=== PATIENT | female | born 1935 | race Caucasian/White ===

== ENCOUNTER → 2018-03-30 06:58 | Outpatient (CLI) | payer MEDICARE, SELFPAY ==
[2018-03-30 08:16] LABS: Add Manual Diff / Slide Review NO; Basophils Percent Auto 0.6 % (0-2); Eosinophils Percent Auto 6.4 % (2-4); Hemoglobin 14.2 g/dL (12.0-16.0); Lymphocytes Percent Auto 21.3 % (25-40); Mean Corpuscular HGB Conc 33.9 % (30-36); Mean Corpuscular Hemoglobin 32.7 PG (26-34); Mean Corpuscular Volume 96.5 fL (80-100); Monocytes Percent Auto 6.6 % (3-14); Neutrophils Absolute Auto 5800 /uL (3000-5900); Neutrophils Percent Auto 65.1 % (50-75); Platelet Count 214 X10^3/uL (150-400); Red Blood Cell Count 4.35 X10^6/uL (4.0-5.2); Red Cell Distribution Width 14.5 % (11.6-14.8)
[2018-03-30 08:37] LABS: Alanine Aminotransferase 29 IU/L (9-52); Albumin 4.6 g/dL (3.5-5.0); Albumin Globulin Ratio 1.6 (1.0-2.8); Alkaline Phosphatase 76 U/L (38-126); Aspartate Aminotransferase 25 IU/L (14-36); BUN Creatinine Ratio 17.1 (6-22); Bilirubin Total 0.8 mg/dL (0.2-1.3); Blood Urea Nitrogen 12 mg/dL (7-17); Calcium 9.9 mg/dL (8.4-10.2); Carbon Dioxide 33 mmol/L (22-32); Chloride 99 mmol/L (98-107); Estimated Glomerular Filt Rate > 60.0 mL/min (>60); Globulin 2.8 g/dL (1.7-4.1); Glucose 101 mg/dL (80-110); HEMOLYSIS < 15 (0-50); Potassium 3.9 mmol/L (3.4-5.1); Sodium 142 mmol/L (137-145); Total Protein 7.4 g/dL (6.3-8.2)
[2018-03-31 15:12] LABS: Cancer Antigen 27.29 18 U/mL (< 38)
== END ==
PROVIDERS: Nurse Practitioner Gerontology; Visit Provider Internal Medicine Hematology & Oncology
DX: C50.912 Malignant neoplasm of unspecified site of left female breast (principal)
CPT/HCPCS: 36415; 80053; 85025; 86300

== ENCOUNTER 2018-04-06 15:41 | Oncology outpatient (ONC) | payer MEDICARE, SELFPAY ==
[2018-04-06 16:14] VITALS: BP 140/74; PULSE 120; RESP 21; TEMP 37.1; O2SAT 98
--- NOTE | 2018-04-06 16:20 | ONC.PN ---
PN -Subjective Interval history: Diagnosis: Breast cancer T1c N0 ERPR positive HER2 negative Previous treatment: 1. Lumpectomy and sentinel node biopsy in August 2016. 2. Anastrozole starting in the spring. Interval history: The patient is an 82-year-old woman who returns today for follow-up of a history of stage I breast cancer. Since her last visit here, she has been feeling quite well and has no specific complaints. She had been having some arthritis pain in her hips. She started doing some physical therapy which has been helpful. She denies any other new aches or pains. She is not having any hot flashes. She has not noted any adenopathy. No shortness of breath or cough. No GI complaints. Id She has been seeing her surgeon Dr. Mccann who has been performing a breast exam every 3 months. For past medical history is otherwise notable for atrial fibrillation hypertension and hyperlipidemia. She has had bilateral knee replacements. She has had a prior hysterectomy. She does use CPAP at night. - Patient Self-Reported Symptoms SR ears, nose, mouth, throat issues: Ears ringing SR Neuro issues: Numbness or tingling Home Medications and Allergies Home Medications Medication Instructions Recorded Confirmed Type [STRESS TAB ADVANCED] Q DAY #0 06/04/16 History atorvastatin [Lipitor] 20 mg PO QDAY #0 06/04/16 History diltiazem HCl 240 mg PO Q DAY #0 06/04/16 History levothyroxine [Synthroid] 150 mcg PO QAM #0 06/04/16 History losartan-hydrochlorothiazide 1 tab PO QDAY #0 06/04/16 History [Hyzaar] metoprolol tartrate 50 mg PO BID #0 06/04/16 History warfarin [Coumadin] 5 mg PO QDAY #0 06/04/16 History [SUSTAIN EYE DROP] #0 09/03/16 History acetaminophen [Tylenol Extra 1,000 mg PO QDAY #0 09/03/16 History Strength] [id number] 28 gm TP #0 09/03/16 History [Neosporin ([id number])] [CALCIUM/VIT D] BID #0 01/19/17 History anastrozole 1 mg PO QDAY #90 tab 09/09/17 Rx Allergies Allergy/AdvReac Type Severity Reaction Status Date / Time allopurinol Allergy Intermediate Fatigued Verified 04/06/18 16:17 Penicillins Allergy Mild RASH Verified 04/06/18 16:17 adhesive Allergy Unknown Verified 04/06/18 16:17 codeine AdvReac Unknown Verified 04/06/18 16:17 Exam Vital signs: Last Vital Signs Temp 98.8 F 04/06/18 16:14 Pulse 120 H 04/06/18 16:14 Resp 21 04/06/18 16:14 BP 140/74 04/06/18 16:14 Pulse Ox 98 04/06/18 16:14 - Constitutional positive no acute distress, positive average body habitus - Routine HEENT Exam Head: Present: normocephalic, atraumatic Eye: Present: EOMI, PERRL. Absent: conjunctival icterus, scleral injection ENT: Present: mucous membranes moist, oropharynx clear - Routine Neck Exam Present: supple. Absent: lymphadenopathy, thyromegaly - Routine Respiratory Exam Present: Clear to auscultation bilaterally. Absent: rales, wheezes - Routine Cardiovascular Exam Present: RRR, S1, S2. Absent: murmur - Routine Abdominal Exam Present: soft, normoactive bowel sounds. Absent: tenderness (The liver edge is palpable 2-3 finger breaths below the costal margin but not tender.) - Routine Extremities Exam Absent: cyanosis, clubbing, edema - Routine Back/Spine Exam Back/Spine: Absent: paraspinal tenderness, vertebral tenderness - Routine Skin Exam Present: intact. Absent: petechiae, rash - Routine Neurological Exam Present: alert, oriented X3 - Routine Psychiatric Exam Present: normal affect, normal thought process Results - Labs CBC, CMP and CA 27.29 were all normal. Assessment and Plan (1) Breast cancer, left Problem details: 82-year-old woman with a history of stage I breast cancer. She is doing well with the hormone therapy and tolerating it without any significant difficulty. She will continue with her anastrozole and return to clinic in about 6 months. She prefers to have her breast exam is done with her surgeon and will continue to follow up with her as well. I explained that typically I do not follow tumor markers an early stage breast cancer patients and would not continue the routine blood monitoring. If she develops any symptoms concerning for recurrence though additional imaging or testing would be indicated. Follow up with her in about 6 months. She will be due for a bone density scan in the summer or fall of 2018. Current visit: No Status: Acute
== END 2018-04-21 14:14 ==
LOC: ONC 15:44
PROVIDERS: Family Provider Internal Medicine; PCP Internal Medicine
DX: C50.912 Malignant neoplasm of unspecified site of left female breast (principal); Z79.811 Long term (current) use of aromatase inhibitors
CPT/HCPCS: 99214

== ENCOUNTER → 2018-05-14 07:39 | Outpatient (CLI) | payer MEDICARE, SELFPAY ==
--- NOTE | 2018-05-14 07:40 | DI.MG.S_ITS ---
BILATERAL DIGITAL SCREENING MAMMOGRAM 3D/2D WITH CAD POST LUMPECTOMY: 05/14/2018 CLINICAL: Routine screening. Personal history of left breast cancer. Family history of breast cancer. Comparison is made to exams dated: 11/09/2017 mammogram, 05/13/2017 mammogram, and 05/12/2016 mammogram - [facility]. The tissue of both breasts is heterogeneously dense. This may lower the sensitivity of mammography. Current study was also evaluated with a Computer Aided Detection (CAD) system. There are benign post operative findings in the left breast. There also are benign vascular calcifications and calcifications in the right breast. Additionally, there are benign vascular calcifications in the left breast. Additionally, there also are benign scattered calcifications in the left breast. No significant masses, calcifications, or other findings are seen in either breast. There has been no significant interval change. IMPRESSION: There is no mammographic evidence of malignancy. A 1 year screening mammogram is recommended. This exam was interpreted at Station ID: [id number]. NOTE: For mammograms, a report in lay terms will be sent to the patient. Approximately 15% of breast malignancies will not be visualized mammographically. In the management of a palpable breast mass, a negative mammogram must not discourage biopsy of a clinically suspicious lesion. Electronically Signed By: Nicholas friedman/hanny:05/14/2018 09:17:15 copy to: RICHARD BHATIA letter sent: Normal Exam ACR BI-RADS Category 2: Benign Finding(s) 3342F
== END ==
PROVIDERS: Family Provider Internal Medicine; PCP Internal Medicine; Visit Provider Internal Medicine
DX: Z12.31 Encounter for screening mammogram for malignant neoplasm of breast (principal); Z85.3 Personal history of malignant neoplasm of breast; Z80.3 Family history of malignant neoplasm of breast
CPT/HCPCS: 77063; 77067

== ENCOUNTER → 2019-05-16 14:47 | Outpatient (CLI) | payer MEDICARE, SELFPAY ==
--- NOTE | 2019-05-16 14:52 | DI.MG.S_ITS ---
BILATERAL DIGITAL SCREENING MAMMOGRAM 3D/2D WITH CAD: 05/16/2019 CLINICAL: Routine screening. Comparison is made to exams dated: 05/14/2018 mammogram, 11/09/2017 mammogram, and 05/13/2017 mammogram - [facility]. The tissue of both breasts is heterogeneously dense. This may lower the sensitivity of mammography. Current study was also evaluated with a Computer Aided Detection (CAD) system. There are benign calcifications in both breasts. There also are benign vascular calcifications in both breasts. Additionally, there are benign post operative findings in the left breast. No significant masses, calcifications, or other findings are seen in either breast. There has been no significant interval change. IMPRESSION: There is no mammographic evidence of malignancy. A 1 year screening mammogram is recommended. This exam was interpreted at Station ID: [id number]. NOTE: For mammograms, a report in lay terms will be sent to the patient. Approximately 15% of breast malignancies will not be visualized mammographically. In the management of a palpable breast mass, a negative mammogram must not discourage biopsy of a clinically suspicious lesion. Electronically Signed By: Francisco [email or web address]/hanny:05/18/2019 15:49:56 copy to: Miguel Angel Phelps letter sent: Normal Exam ACR BI-RADS Category 2: Benign Finding(s) 3342F
== END ==
PROVIDERS: PCP Internal Medicine
DX: Z12.31 Encounter for screening mammogram for malignant neoplasm of breast (principal); C50.912 Malignant neoplasm of unspecified site of left female breast; Z78.0 Asymptomatic menopausal state; E07.9 Disorder of thyroid, unspecified; Z90.722 Acquired absence of ovaries, bilateral
CPT/HCPCS: 77063; 77067; 77080

== ENCOUNTER → 2019-12-20 18:27 | Outpatient (ROUT) | payer MEDICARE, SELFPAY ==
[2019-12-20 19:04] LABS: Aspartate Aminotransferase 37 IU/L (14-36); BUN Creatinine Ratio 16.7 (6-22); Blood Urea Nitrogen 12 mg/dL (7-17); Calcium 10.4 mg/dL (8.4-10.2); Carbon Dioxide 25 mmol/L (22-32); Chloride 98 mmol/L (98-107); Cholesterol 157 mg/dL (140-199); Estimated Glomerular Filt Rate > 60.0 mL/min (>60); Glucose 102 mg/dL (80-110); HDL Cholesterol 65 mg/dL (40-60); HEMOLYSIS < 15 (0-50); LDL Cholesterol Calculated 58 mg/dL (<100); Potassium 3.9 mmol/L (3.4-5.1); Sodium 134 mmol/L (137-145); Triglycerides 168 mg/dL (35-150)
[2019-12-20 19:35] LABS: TSH w/ Reflex to FT4 0.04 uIU/mL (0.47-4.68)
[2019-12-20 20:00] LABS: Free T4, Direct Thyroxine 2.43 ng/dL (0.78-2.19)
== END ==
PROVIDERS: PCP Internal Medicine; Visit Provider Internal Medicine
DX: I10 Essential (primary) hypertension (principal); E78.2 Mixed hyperlipidemia; E03.9 Hypothyroidism, unspecified
CPT/HCPCS: 80048; 80061; 84439; 84443; 84450

== ENCOUNTER → 2019-12-28 07:45 | Outpatient (CLI) | payer MEDICARE, SELFPAY ==
[2019-12-28 09:12] LABS: Add Manual Diff / Slide Review NO; Basophils Absolute Auto 0 /uL (0-100); Basophils Percent Auto 0.6 % (0-2); Eosinophils Absolute Auto 200 /uL (0-450); Eosinophils Percent Auto 2.5 % (2-4); Hematocrit 40.4 % (36-46); Hemoglobin 13.6 g/dL (12.0-16.0); Lymphocytes Absolute Auto 1500 /uL (1100-4500); Lymphocytes Percent Auto 18.2 % (25-40); Mean Corpuscular HGB Conc 33.5 % (30-36); Mean Corpuscular Hemoglobin 34.1 PG (26-34); Mean Corpuscular Volume 101.7 fL (80-100); Monocytes Absolute Auto 700 /uL (0-900); Monocytes Percent Auto 8.2 % (3-14); Neutrophils Absolute Auto 5800 /uL (1500-7000); Neutrophils Percent Auto 70.5 % (50-75); Platelet Count 219 X10^3/uL (150-400); Red Blood Cell Count 3.97 X10^6/uL (4.0-5.2); Red Cell Distribution Width 15.4 % (11.6-14.8); White Blood Cell Count 8.2 X10^3/uL (4.5-11.0)
[2019-12-28 09:53] LABS: Alanine Aminotransferase 25 IU/L (<35); Albumin Globulin Ratio 1.4 (1.0-2.8); Alkaline Phosphatase 81 U/L (38-126); Aspartate Aminotransferase 35 IU/L (14-36); BUN Creatinine Ratio 11.8 (6-22); Bilirubin Total 0.7 mg/dL (0.2-1.3); Blood Urea Nitrogen 10 mg/dL (7-17); Calcium 9.8 mg/dL (8.4-10.2); Carbon Dioxide 27 mmol/L (22-32); Chloride 98 mmol/L (98-107); Estimated Glomerular Filt Rate > 60.0 mL/min (>60); Globulin 2.9 g/dL (1.7-4.1); Glucose 114 mg/dL (80-110); HEMOLYSIS < 15 (0-50); Sodium 134 mmol/L (137-145); Total Protein 6.9 g/dL (6.3-8.2)
[2020-01-03 09:36] LABS: Immunoglobulin E 140 IU/mL (6-495)
[2020-01-10 07:09] LABS: Bullous Pemphigoid 180 IgG AB 1.3 U/ml (.); Bullous Pemphigoid 230 IgG AB 95.2 U/ml (.)
== END ==
PROVIDERS: PCP Internal Medicine; Referring Provider Dermatology; Visit Provider Dermatology
DX: L30.9 Dermatitis, unspecified (principal)
CPT/HCPCS: 36415; 80053; 82785; 83516; 85025

== ENCOUNTER → 2020-01-09 09:33 | Outpatient (CLI) | payer MEDICARE, SELFPAY ==
--- NOTE | 2020-01-09 09:41 | DI.CT.S_ITS ---
PROCEDURE: CT ABDOMEN WO/W CON INDICATIONS: Renal Mass right TECHNIQUE: Optional 5 mm thick noncontrast images acquired from the diaphragm to the iliac crests. After the administration of intravenous contrast, 5 mm thick images again acquired from the diaphragm to the iliac crests in the arterial and urographic phases. 5 mm thick coronal and sagittal reformats were then acquired. For radiation dose reduction, the following was used: automated exposure control, adjustment of mA and/or kV according to patient size. COMPARISON: [facility], , CT THORAX W/CONTRAST, 09/29/2004, 9:24. FINDINGS: Image quality: Excellent. Lung bases: Lung bases are clear. Heart size is normal. Genitourinary: The bilateral kidneys are normal size. No hydronephrosis or nephrolithiasis. A low density cortical cyst is present within the lower pole of the right kidney. An exophytic cyst is present within the upper pole the right kidney which demonstrates partial rim calcification. This measures 20 Hounsfield units on the precontrast study, 26 Hounsfield units on the arterial study, and 26 Hounsfield units on the delayed phase study. No appreciable rim enhancement. No other suspicious renal mass lesions or enhancement. Visualized portions of the renal collecting systems demonstrate normal course and caliber. Other solid organs: Liver is normal in size and enhancement. Punctate stones or layering sludge is present within the gallbladder fundus. Over wall thickening or pericholecystic fluid. Biliary system is non dilated. Pancreas enhances normally. Spleen is normal in size and enhancement. No adrenal nodules. Peritoneum and bowel: Unenhanced bowel loops are normal in wall thickness and caliber. No free fluid or air. Nodes and vessels: No retroperitoneal or mesenteric adenopathy by size criteria. Aorta and inferior vena cava are normal in caliber. There are dense atheromatous calcifications throughout the aorta and iliac arteries bilaterally. Bones: No suspicious bony lesions. No vertebral body compression fractures. Severe degenerative changes are present throughout the lumbar spine including vacuum disc phenomenon and osteophytosis. Miscellaneous: No ventral hernias. IMPRESSION: 1. Exophytic cystic lesion within the upper pole the right kidney which demonstrates less than 6 Hounsfield units change in density after contrast administration. Findings most likely represent a benign cyst. No prior comparisons are available to time of this dictation. If prior comparisons become available, an addendum can be issued time. 2. No acute intra-abdominal findings. Dense aortic atherosclerosis. Dictated by: Megan Cuadra M.D. on 01/09/2020 at 12:07 Approved by: Megan Cuadra M.D. on 01/09/2020 at 12:19
== END ==
PROVIDERS: PCP Internal Medicine; Referring Provider Urology; Visit Provider Urology
DX: N28.89 Other specified disorders of kidney and ureter (principal); I70.0 Atherosclerosis of aorta
CPT/HCPCS: 74170

== ENCOUNTER 2020-04-23 08:41 | Outpatient (RCR) | payer MEDICARE, SELFPAY ==
--- NOTE | 2020-04-23 12:15 | PT.OIE ---
Current Diagnoses Constipation, unspecified (04/23/20) Muscle weakness (generalized) (04/23/20) Urge incontinence (04/23/20) Abnormal posture (04/23/20) Past Medical History (Last Reviewed 08/09/18 @ 20:12 by Deepti Mccann MD) Afib (Acute) Arthritis (Acute) HTN (hypertension) (Acute) Visit Care Team Role Provider Type Miguel Angel Phelps MD Primary Care Provider Physician Specialty: Internal Medicine Address: [address] [place] [address], [id number] Email: [email or web address] Pina Diehl MD Attending Provider Non-Staff Referring Provider Specialty: Urology Address: [address] [place] [address], [id number] Email: Physical Therapy Initial Evaluation PT-OP-A Visit Information Start: 04/19/20 17:34 Freq: Status: Active Protocol: Document 04/23/20 09:05 LRN (Rec: 04/23/20 10:33 LRN [id number]) Out-Patient Physical Therapy Visit Information Visit Information Visit Type Initial Evaluation Visit Start Time 09:05 Visit Stop Time 10:04 Total Visit Minutes 59 Visit Number 1 Evaluation Information Evaluation Date 04/23/20 Precautions Precautions Pt reports: LATEX ALLERGY bruises easily, and has eczema . Fell 5-6 wks ago, fear of falling. PT Exercises 3x/week and Ex's from physician, 3-4 months ago . Walks daily. Buster knee replacements 10 yrs ago. Lump removed from breast that was small, malignant but no treatment needed post surgery. 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 PT-OP-B Current Condition Start: 04/19/20 17:34 Freq: Status: Active Protocol: Document 04/23/20 09:05 LRN (Rec: 04/23/20 10:33 LRN [id number]) Current Condition History of Current Condition Onset Date 6 months ago without warning. Current Complaints Wetting pants in spurts. History of Current Condition Wears maxi-pads (specifically 7th generation due to allergy) that are thick and absorbent, and last a while to keep pants from getting wet. Wears 2-3/day. Fell 5-6 wks ago and now has assist to ambulate. Prior Treatments and Tests None. Future Testing and Treatments Planned 3 months. Treatment Goals Patient/Caregiver Goals Pt goal is to decrease urinary incontinence. Prior Functional Status Baseline Function- ADL's Independent Baseline Function- Mobility Independent Baseline Function- Other Continent of urine. Current Functional Impairments (Reported) Functional Limitations- ADL's Has railing for on/off toilet. Functional Limitations- Mobility/Gait Hand held assist for gait. Functional Limitations- Other Changes pads (7th generation) 2-3 times/day. If has a drink it goes right through me. No nighttime urination. Urinates 5-6x/day, and urinates always with a bowel movement. Problem with constipation, takes Senecot and Miralex once a day for ~2 yrs. Personal Factors Other Personal Factors That May Effect LATEX ALLERGY bruises easily Therapy/Recovery Fell 5-6 wks ago, now with fear of falling. PT Exercises 3x/week and Ex's from physician, 3-4 months ago . Walks daily. Buster knee replacements 10 yrs ago. Lump removed from breast that was small. 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 PT-OP-J Posture/Palpation/Skin Start: 04/19/20 17:34 Freq: Status: Active Protocol: Document 04/23/20 09:05 LRN (Rec: 04/23/20 10:33 LRN [id number]) Posture Evaluation Position Standing Evaluation View Posterior & lateral Head/C-Spine Posture Forward Head T-Spine Posture Increased Kyphosis L-Spine Posture Rotation Left,Fixed Scoliosis on (R) Shoulder Posture (L) Rounded,(R) Rounded Pelvis Posture (L) Iliac Crest Superior,(L) PSIS Posterior Knee Posture (L) Excess Flexion,(R) Excess Flexion PT-OP-K Range of Motion Start: 04/19/20 17:34 Freq: Status: Active Protocol: Document 04/23/20 09:05 LRN (Rec: 04/23/20 10:33 LRN [id number]) Hip Goniometric Range of Motion Hip Right Passive Testing Position Supine Straight Leg Raise 45 Internal Rotation 30 External Rotation 60 Left Passive Testing Position Supine Straight Leg Raise 50 Internal Rotation 30 External Rotation 50 PT-OP-M Strength Start: 04/19/20 17:34 Freq: Status: Active Protocol: Document 04/23/20 09:05 LRN (Rec: 04/23/20 10:33 LRN [id number]) Trunk Strength Trunk Manual Muscle Testing Core Stabilization Poor core stability in sidelie with leg movements. Good Core stability in supine with leg movements. Hip Strength Hip Manual Muscle Testing Right Flexion (L2) 3 Fair Extension (S1) 2+ Poor+ Abduction 5 Normal Adduction 2+ Poor+ External Rotation 4+ Good+ Internal Rotation 5 Normal Left Flexion (L2) 3+ Fair+ Extension (S1) 2+ Poor+ Abduction 2+ Poor+ Adduction 5 Normal External Rotation 5 Normal Internal Rotation 5 Normal PT-OP-Q Treatments Start: 04/19/20 17:34 Freq: Status: Active Protocol: Document 04/23/20 09:05 LRN (Rec: 04/23/20 10:33 LRN [id number]) Self-Care/Home Management Treatment Education Patient Education Home Exercise Program Other Education Discussed at length goals and home ex's of Kegels and Deep breathing. Discussed Plan of Care and next treatment at length after evaluation. Educated pt in how to complete Bladder Diary and I/S pt in tracking for 1 week with discussion of use of 2 different diaries if needed for tracking bladder/bladder/ food & fluids intake/output. Activities Self-Care/Home Management Activities Issued & reviewed HEP: Deep breathing working up to a 6 sec breath, & Kegels for Quick Flicks/Long Holds. Pt also given handouts to complete Bladder Diary for 7 days. PT-OP-T Assessment and Plan Start: 04/19/20 17:34 Freq: Status: Active Protocol: Document 04/23/20 09:05 LRN (Rec: 04/23/20 10:33 LRN [id number]) Physical Therapy Assessment Rehab Potential Rehabilitation Potential Fair Evaluation Complexity Number of Personal Factors/Comorbidities 3 or More Number of Body Systems Impaired 4 or More Clinical Presentation at Evaluation Evolving Impairments Impairments Activity Tolerance,Posture,ROM ,Strength,Transfers Goals Two Impairment Pt unaware of when Urinary leakage occurs Short Term Goal (STG) Improve awareness of PF contraction with pt able to identify feeling of contraction of anterior and posterior PF. STG Duration 05/20/20 Custodial Goal (LTG) Pt will be able to decrease amount of urinary leakage with a reduction of use of daily pads. LTG Duration 06/22/20 One Impairment Pt lacks appropriate self care HEP. Short Term Goal (STG) Pt will be independent in an initial self care PF/core strengthening & hip mobility/ strengthening HEP with STG Duration 05/06/20 Custodial Goal (LTG) Pt will be independent in an ongoing self care HEP for progressive PFcore strengthening. LTG Duration 06/22/20 Assessment Summary Assessment Not able to assess PF due to time constraints and extra time taken for pt education. Pt presented with complaints of urinary leakage without the sensation of leaking. She also notes constipation is an issue. The pt had many questions regarding physical therapy in itself associated to the amount of work that would be required from her. She appeared to be overwhelmed after being issued 2 home exercises of deep breathing and Quick/Long Hold Kegels, indicating she might not be able to do more than what she is doing right now with her current home program. The pt would not commit to doing the home exercises or continuing with therapy, and gave indications she might not return. The pt would benefit from skilled physical therapy for education of her PF and any changes noted from review of her bladder diary. She would also benefit from PF strengthening as well as core and hip exercises, although the pt may loose desire to do a HEP if too many exercises are needed for her rehabilitation program. Physical Therapy Plan Frequency and Duration Frequency of Treatment 1x/Week Plan of Care Start Date 04/23/20 Plan of Care End Date 06/22/20 Therapeutic Interventions Therapeutic Interventions Home Exercise Program,Manual Therapy,Neuromuscular Re- education,Patient/Caregiver Education,Self-Care/Home Management,Therapeutic Exercises Next Visit Focus/Plan Next Note Type Treatment Note Next Visit Plan Review Bladder Diary and make appropriate recommendations. Assess PF strength and initiate PF strengthening program as appropriate. Pt education in bladder irritants . Discuss proper bowel care and perineum care. Review Deep Breathing and Kegel ex's. Progress Urinary incontinence with bowel care rehab program as appropriate. Core stability and hip mobility ex's in coordination with PF ex's. Minimize home exercises to not overwhelm patient.
--- NOTE | 2020-04-23 12:16 | PT.OPPOC ---
Physical, Occupational & Speech Therapy At [facility] Current Diagnoses Constipation, unspecified (04/23/20) Muscle weakness (generalized) (04/23/20) Urge incontinence (04/23/20) Abnormal posture (04/23/20) Visit Care Team Role Provider Type Miguel Angel Phelps MD Primary Care Provider Physician Specialty: Internal Medicine Address: [address] [place] [address], [phone] Email: [email or web address] Pina Diehl MD Attending Provider Non-Staff Referring Provider Specialty: Urology Address: [address] [place] [address], [id number] Email: Plan Of Care PT-OP-T Assessment and Plan Start: 04/19/20 17:34 Freq: Status: Active Protocol: Document 04/23/20 09:05 LRN (Rec: 04/23/20 10:33 LRN [id number]) Physical Therapy Assessment Rehab Potential Rehabilitation Potential Fair Evaluation Complexity Number of Personal Factors/Comorbidities 3 or More Number of Body Systems Impaired 4 or More Clinical Presentation at Evaluation Evolving Impairments Impairments Activity Tolerance,Posture,ROM ,Strength,Transfers Goals Two Impairment Pt unaware of when Urinary leakage occurs Short Term Goal (STG) Improve awareness of PF contraction with pt able to identify feeling of contraction of anterior and posterior PF. STG Duration 05/20/20 Retirement Goal (LTG) Pt will be able to decrease amount of urinary leakage with a reduction of use of daily pads. LTG Duration 06/22/20 One Impairment Pt lacks appropriate self care HEP. Short Term Goal (STG) Pt will be independent in an initial self care PF/core strengthening & hip mobility/ strengthening HEP with STG Duration 05/06/20 Retirement Goal (LTG) Pt will be independent in an ongoing self care HEP for progressive PFcore strengthening. LTG Duration 06/22/20 Assessment Summary Assessment Not able to assess PF due to time contraints and extra time taken for pt education. Pt presented with complaints of urinary leakage without the sensation of leaking. She also notes constipation is an issue. The pt had many questions regarding physical therapy in itself associated to the amount of work that would be required from her. She appeared to be overwhelmed after being issued 2 home exercises of deep breathing and Quick/Long Hold Kegels, indicating she might not be able to do more than what she is doing right now with her current home program. The pt would not commit to doing the home exercises or continuing with therapy, and gave indications she might not return. The pt would benefit from skilled physical therapy for education of her PF and any changes noted from review of her bladder diary. She would also benefit from PF strengthening as well as core and hip exercises, although the pt may loose desire to do a HEP if too many exercises are needed for her rehabilitation program. Physical Therapy Plan Frequency and Duration Frequency of Treatment 1x/Week Plan of Care Start Date 04/23/20 Plan of Care End Date 06/22/20 Therapeutic Interventions Therapeutic Interventions Home Exercise Program,Manual Therapy,Neuromuscular Re- education,Patient/Caregiver Education,Self-Care/Home Management,Therapeutic Exercises Next Visit Focus/Plan Next Note Type Treatment Note Next Visit Plan Review Bladder Diary and make appropriate recommendations. Assess PF strength and initiate PF strengthening program as appropriate. Pt education in bladder irritants . Discuss proper bowel care and perineum care. Review Deep Breathing and Kegel ex's. Progress Urinary incontinence with bowel care rehab program as appropriate. Core stability and hip mobility ex's in coordination with PF ex's. Minimize home exercises to not overwhelm patient. Plan of Care Dates Plan of Care Start Date 04/23/20 Plan of Care End Date 06/22/20 Electronically Signed by: Megan Scanlon, PT 04/23/20 [id number] Please Sign and Return: I have reviewed this Plan of Care and certify that the skilled therapy services above are required to meet the patient?s needs. Physician Signature Date Printed Name and Credentials Clinical Instructor Signature Printed Name and Credentials
--- NOTE | 2020-04-24 16:30 | PT.OPDS ---
Current Diagnoses Constipation, unspecified (04/23/20) Muscle weakness (generalized) (04/23/20) Urge incontinence (04/23/20) Abnormal posture (04/23/20) Visit Care Team Role Provider Type Miguel Angel Phelps MD Primary Care Provider Physician Specialty: Internal Medicine Address: [address] [place] [address], [id number] Email: [email or web address] Pina Diehl MD Attending Provider Non-Staff Referring Provider Specialty: Urology Address: [address] [place] [address], [id number] Email: Visit Number Visit Number 1 Discharge Summary PT-OP-B Current Condition Start: 04/19/20 17:34 Freq: Status: Active Protocol: Document 04/23/20 09:05 LRN (Rec: 04/23/20 10:33 LRN [id number]) Current Condition History of Current Condition Onset Date 6 months ago without warning. Current Complaints Wetting pants in spurts. History of Current Condition Wears maxi-pads (specifically 7th generation due to allergy) that are thick and absorbent, and last a while to keep pants from getting wet. Wears 2-3/day. Fell 5-6 wks ago and now has assist to ambulate. Prior Treatments and Tests None. Future Testing and Treatments Planned 3 months. Treatment Goals Patient/Caregiver Goals Pt goal is to decrease urinary incontinence. Prior Functional Status Baseline Function- ADL's Independent Baseline Function- Mobility Independent Baseline Function- Other Continent of urine. Current Functional Impairments (Reported) Functional Limitations- ADL's Has railing for on/off toilet. Functional Limitations- Mobility/Gait Hand held assist for gait. Functional Limitations- Other Changes pads (7th generation) 2-3 times/day. If has a drink it goes right through me. No nighttime urination. Urinates 5-6x/day, and urinates always with a bowel movement. Problem with constipation, takes Senecot and Miralex once a day for ~2 yrs. Personal Factors Other Personal Factors That May Effect LATEX ALLERGY bruises easily Therapy/Recovery Fell 5-6 wks ago, now with fear of falling. PT Exercises 3x/week and Ex's from physician, 3-4 months ago . Walks daily. Buster knee replacements 10 yrs ago. Lump removed from breast that was small. 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 PT-OP-J Posture/Palpation/Skin Start: 04/19/20 17:34 Freq: Status: Active Protocol: Document 04/23/20 09:05 LRN (Rec: 04/23/20 10:33 LRN [id number]) Posture Evaluation Position Standing Evaluation View Posterior & lateral Head/C-Spine Posture Forward Head T-Spine Posture Increased Kyphosis L-Spine Posture Rotation Left,Fixed Scoliosis on (R) Shoulder Posture (L) Rounded,(R) Rounded Pelvis Posture (L) Iliac Crest Superior,(L) PSIS Posterior Knee Posture (L) Excess Flexion,(R) Excess Flexion PT-OP-K Range of Motion Start: 04/19/20 17:34 Freq: Status: Active Protocol: Document 04/23/20 09:05 LRN (Rec: 04/23/20 10:33 LRN [id number]) Hip Goniometric Range of Motion Hip Right Passive Testing Position Supine Straight Leg Raise 45 Internal Rotation 30 External Rotation 60 Left Passive Testing Position Supine Straight Leg Raise 50 Internal Rotation 30 External Rotation 50 PT-OP-M Strength Start: 04/19/20 17:34 Freq: Status: Active Protocol: Document 04/23/20 09:05 LRN (Rec: 04/23/20 10:33 LRN [id number]) Trunk Strength Trunk Manual Muscle Testing Core Stabilization Poor core stability in sidelie with leg movements. Good Core stability in supine with leg movements. Hip Strength Hip Manual Muscle Testing Right Flexion (L2) 3 Fair Extension (S1) 2+ Poor+ Abduction 5 Normal Adduction 2+ Poor+ External Rotation 4+ Good+ Internal Rotation 5 Normal Left Flexion (L2) 3+ Fair+ Extension (S1) 2+ Poor+ Abduction 2+ Poor+ Adduction 5 Normal External Rotation 5 Normal Internal Rotation 5 Normal PT-OP-T Assessment and Plan Start: 04/19/20 17:34 Freq: Status: Active Protocol: Document 04/24/20 16:27 LRN (Rec: 04/24/20 16:30 LRN [id number]) Physical Therapy Assessment Goals Two Impairment Pt unaware of when Urinary leakage occurs Short Term Goal (STG) Improve awareness of PF contraction with pt able to identify feeling of contraction of anterior and posterior PF. STG Duration 05/20/20 (04/24/20: PT self DC'd GOAL NOT MET) Veterinary Radiologist Goal (LTG) Pt will be able to decrease amount of urinary leakage with a reduction of use of daily pads. LTG Duration 06/22/20 (04/24/20: PT self DC'd GOAL NOT MET) One Impairment Pt lacks appropriate self care HEP. Short Term Goal (STG) Pt will be independent in an initial self care PF/core strengthening & hip mobility/ strengthening HEP with STG Duration 05/06/20 (04/24/20: PT self DC'd GOAL NOT MET) Veterinary Radiologist Goal (LTG) Pt will be independent in an ongoing self care HEP for progressive PFcore strengthening. LTG Duration 06/22/20 (04/24/20: PT self DC'd GOAL NOT MET) Assessment Summary Assessment (819) Pt spouse called to leave message to cancel all appointments and discharge. No further therapy planned. Physical Therapy Plan Discharge Physical Therapy Discharge Reasons Patient Request Discharge Comments Pt self discharged after initial evaluation. No further therapy planned. Thank you for your referral.
== END 2020-04-26 08:43 ==
LOC: PHYS 08:41
PROVIDERS: PCP Internal Medicine; Referring Provider Urology; Visit Provider Urology
DX: N39.41 Urge incontinence (principal); M62.81 Muscle weakness (generalized); R29.3 Abnormal posture; K59.00 Constipation, unspecified
CPT/HCPCS: 97162; 97535

== ENCOUNTER → 2020-05-17 09:57 | Outpatient (CLI) | payer MEDICARE, SELFPAY ==
--- NOTE | 2020-05-17 09:58 | DI.MG.S_ITS ---
BILATERAL DIGITAL SCREENING MAMMOGRAM 3D/2D WITH CAD: 05/17/2020 CLINICAL: Routine screening. Personal history of left breast cancer. Family history of breast cancer. Comparison is made to exams dated: 05/16/2019 mammogram, 05/14/2018 mammogram, and 05/13/2017 mammogram - [facility]. The tissue of both breasts is heterogeneously dense. This may lower the sensitivity of mammography. Current study was also evaluated with a Computer Aided Detection (CAD) system. There are benign calcifications in both breasts. There also are benign vascular calcifications in both breasts. Additionally, there are benign post operative findings in the left breast. No significant masses, calcifications, or other findings are seen in either breast. There has been no significant interval change. IMPRESSION: BENIGN There is no mammographic evidence of malignancy. A 1 year screening mammogram is recommended. This exam was interpreted at Station ID: [id number]. NOTE: For mammograms, a report in lay terms will be sent to the patient. Approximately 15% of breast malignancies will not be visualized mammographically. In the management of a palpable breast mass, a negative mammogram must not discourage biopsy of a clinically suspicious lesion. Electronically Signed By: Francisco alexandra/hanny:05/17/2020 12:21:38 copy to: Miguel Angel Phelps letter sent: Normal Exam ACR BI-RADS Category 2: Benign Finding(s) 3342F
== END ==
PROVIDERS: PCP Internal Medicine; Referring Provider Internal Medicine Hematology & Oncology; Visit Provider Internal Medicine Hematology & Oncology
DX: Z12.31 Encounter for screening mammogram for malignant neoplasm of breast (principal); Z85.3 Personal history of malignant neoplasm of breast; Z80.3 Family history of malignant neoplasm of breast
CPT/HCPCS: 77063; 77067

== ENCOUNTER → 2020-09-26 18:35 | Outpatient (ROUT) | payer MEDICARE, SELFPAY ==
[2020-09-26 19:33] LABS: HEMOLYSIS < 15 (0-50)
[2020-09-26 19:34] LABS: Add Manual Diff / Slide Review NO; Basophils Absolute Auto 0 /uL (0-100); Basophils Percent Auto 0.5 % (0-2); Eosinophils Absolute Auto 200 /uL (0-450); Hematocrit 39.2 % (36-46); Hemoglobin 13.2 g/dL (12.0-16.0); Lymphocytes Absolute Auto 1800 /uL (1100-4500); Lymphocytes Percent Auto 19.8 % (25-40); Mean Corpuscular HGB Conc 33.6 % (30-36); Mean Corpuscular Hemoglobin 34.8 PG (26-34); Mean Corpuscular Volume 103.7 fL (80-100); Monocytes Absolute Auto 800 /uL (0-900); Monocytes Percent Auto 9.2 % (3-14); Neutrophils Absolute Auto 6100 /uL (1500-7000); Neutrophils Percent Auto 68.5 % (50-75); Platelet Count 193 X10^3/uL (150-400); Red Blood Cell Count 3.78 X10^6/uL (4.0-5.2); Red Cell Distribution Width 15.1 % (11.6-14.8); White Blood Cell Count 8.9 X10^3/uL (4.5-11.0)
[2020-09-26 19:40] LABS: Aspartate Aminotransferase 31 IU/L (14-36); BUN Creatinine Ratio 18.4 (6-22); Blood Urea Nitrogen 14 mg/dL (7-17); Calcium 9.8 mg/dL (8.4-10.2); Carbon Dioxide 28 mmol/L (22-32); Chloride 95 mmol/L (98-107); Cholesterol 155 mg/dL (140-199); Estimated Glomerular Filt Rate > 60.0 mL/min (>60); Glucose 110 mg/dL (80-110); HDL Cholesterol 65 mg/dL (40-60); LDL Cholesterol Calculated 58 mg/dL (<100); Potassium 4.1 mmol/L (3.4-5.1); Sodium 132 mmol/L (137-145); Triglycerides 161 mg/dL (35-150)
[2020-09-26 19:57] LABS: Hemoglobin A1C% w Est Avg Glu 5.7 % (4.0-6.0)
[2020-09-26 20:12] LABS: TSH w/ Reflex to FT4 0.48 uIU/mL (0.47-4.68)
[2020-09-26 20:47] LABS: Vitamin B12 306 pg/mL (239-931)
== END ==
PROVIDERS: PCP Internal Medicine; Visit Provider Internal Medicine
DX: E03.9 Hypothyroidism, unspecified (principal); E53.8 Deficiency of other specified B group vitamins; I10 Essential (primary) hypertension; E78.2 Mixed hyperlipidemia; R73.01 Impaired fasting glucose
CPT/HCPCS: 80048; 80061; 82607; 83036; 84443; 84450; 85025

== ENCOUNTER → 2020-10-11 08:48 | Outpatient (CLI) | payer MEDICARE, SELFPAY ==
--- NOTE | 2020-10-11 | DI.ECHO.S_ITS ---
[place] +---------+ [facility] +---------+ : : [address] : : : : [id number] : : : : Phone: [phone]+ Echocardiogram Report + + :Name: SAMUEL VERMA Study Date: 10/11/2020 Height: 68 in : :[facility] ReadingLocation: Weight: 197 lb : : Gender: Female BSA: 2.0 m2 : :: 1935 Age: 85 yrs BP: 144/98 mmHg: :Reason For Study: Murmur : :Ordering Physician: JUAN C, : :CARRIE Performed By: Dave Ha : :Referring: CARRIE IRIZARRY : + + Interpretation Summary There is mild concentric left ventricular hypertrophy. The ejection fraction is estimated to be 60-65%. The right ventricle is moderately dilated. The right atrium is severely dilated. There is mild mitral regurgitation. There is mild aortic stenosis. There is severe tricuspid regurgitation. The right ventricular systolic pressure is estimated to be at least 44 mmHg based on an estimated right atrial pressure of 8 mm Hg. Procedure: A two-dimensional transthoracic echocardiogram with color flow and Doppler was performed. The study quality was technically difficult. There is no prior echocardiogram noted for this patient. The patient was in atrial fibrillation with heart rates between 75-120 bpm during the exam. Left Ventricle: The left ventricular cavity is small. There is mild concentric left ventricular hypertrophy. Left ventricular systolic function is normal. The ejection fraction is estimated to be 60-65%. There are no focal wall motion abnormalities. Diastolic function could not be accurately assessed due to atrial fibrillation. Right Ventricle: The right ventricle is moderately dilated. The right ventricular systolic function is normal. Atria: The left atrium is moderately dilated. The right atrium is severely dilated. There is no Doppler evidence for an interatrial shunt. Mitral Valve: There is moderate mitral annular calcification. There is mild mitral regurgitation. Aortic Valve: The aortic valve is mildly calcified. There is moderately reduced leaflet mobility. There is mild aortic stenosis. The aortic valve mean gradient is 17 mmHg. The peak aortic velocity is 2.8 m/sec. No aortic regurgitation is present. Tricuspid Valve: The tricuspid valve leaflets are thin and pliable. There is severe tricuspid regurgitation. The right ventricular systolic pressure is estimated to be at least 44 mmHg based on an estimated right atrial pressure of 8 mm Hg. Pulmonic Valve: The pulmonic valve is not well visualized. There is no pulmonic valvular regurgitation. Great Vessels: The aortic root is normal size. The dimensions of the ascending aorta are normal. The IVC is dilated (diameter is greater than 2.1 cm) yet it collapses greater than 50% with a sniff. This suggests a right atrial pressure of 8 mm Hg. Pericardium/ Pleura There is no pericardial effusion. There is no pleural effusion. MMode/2D Measurements & Calculations LVIDd: 3.7 cm LVOT diam: 2.0 cm LVIDs: 2.4 cm Ao root diam: 3.1 cm FS: 35.9 % asc Aorta Diam: 3.6 cm IVSd: 1.2 cm LVPWd: 1.3 cm LV forrester. diameter/BSA (cm/m^2): 1.8 LV sys. diameter/BSA (cm/m^2): 1.2 LA A2 area: 24.8 cm2 RA area: 28.2 cm2 LA A4 area: 26.7 cm2 IVC diam: 2.7 cm LA length (vol): 6.1 cm LA vol: 91.7 ml LA vol index: 45.1 ml/m2 RVD1 (basal): 3.7 cm TAPSE: 1.9 cm Doppler Measurements & Calculations Ao V2 max: 282.2 cm/sec LVOT Max Oscar: 58.7 cm/sec Ao V2 mean: 195.9 cm/sec LV V1 max P.4 mmHg Ao max P.9 mmHg LV V1 VTI: 13.9 cm Ao mean P.2 mmHg NIMISHA(I,D): 0.92 cm2 Ao V2 VTI: 47.8 cm NIMISHA(V,D): 0.66 cm2 sev ratio: 0.29 NIMISHA indexed to BSA (cm^2/m^2): 0.45 TR max oscar: 298.7 cm/sec SV(LVOT): 43.9 ml TR max P.7 mmHg PA V2 max: 96.3 cm/sec PA V2 mean: 62.2 cm/sec PA mean P.8 mmHg PA pr(Accel): 37.5 mmHg Reading Physician:04:39 PM
== END ==
PROVIDERS: PCP Internal Medicine; Referring Provider Internal Medicine; Visit Provider Internal Medicine
DX: R01.1 Cardiac murmur, unspecified (principal); I34.0 Nonrheumatic mitral (valve) insufficiency; I07.1 Rheumatic tricuspid insufficiency; I35.0 Nonrheumatic aortic (valve) stenosis
CPT/HCPCS: 93306

== ENCOUNTER → 2020-11-15 06:59 | Outpatient (CLI) | payer MEDICARE, SELFPAY ==
[2020-11-15 07:28] LABS: Add Manual Diff / Slide Review NO; Basophils Absolute Auto 0 /uL (0-100); Basophils Percent Auto 0.5 % (0-2); Eosinophils Absolute Auto 100 /uL (0-450); Eosinophils Percent Auto 1.6 % (2-4); Hematocrit 41.6 % (36-46); Hemoglobin 14.1 g/dL (12.0-16.0); Lymphocytes Absolute Auto 1400 /uL (1100-4500); Lymphocytes Percent Auto 15.2 % (25-40); Mean Corpuscular HGB Conc 33.9 % (30-36); Mean Corpuscular Hemoglobin 35.5 PG (26-34); Mean Corpuscular Volume 104.8 fL (80-100); Monocytes Absolute Auto 700 /uL (0-900); Neutrophils Absolute Auto 6700 /uL (1500-7000); Neutrophils Percent Auto 74.7 % (50-75); Platelet Count 184 X10^3/uL (150-400); Red Blood Cell Count 3.97 X10^6/uL (4.0-5.2); Red Cell Distribution Width 14.4 % (11.6-14.8); White Blood Cell Count 8.9 X10^3/uL (4.5-11.0)
[2020-11-15 07:55] LABS: Alanine Aminotransferase 19 IU/L (<35); Albumin 4.2 g/dL (3.5-5.0); Albumin Globulin Ratio 1.4 (1.0-2.8); Alkaline Phosphatase 72 U/L (38-126); Aspartate Aminotransferase 31 IU/L (14-36); BUN Creatinine Ratio 12.7 (6-22); Bilirubin Total 0.6 mg/dL (0.2-1.3); Blood Urea Nitrogen 9 mg/dL (7-17); Calcium 9.7 mg/dL (8.4-10.2); Carbon Dioxide 28 mmol/L (22-32); Chloride 90 mmol/L (98-107); Estimated Glomerular Filt Rate > 60.0 mL/min (>60); Glucose 127 mg/dL (80-110); HEMOLYSIS < 15 (0-50); Sodium 127 mmol/L (137-145); Total Protein 7.2 g/dL (6.3-8.2)
== END ==
PROVIDERS: Internal Medicine Hematology & Oncology; PCP Internal Medicine; Referring Provider Internal Medicine; Visit Provider Internal Medicine
DX: C50.912 Malignant neoplasm of unspecified site of left female breast (principal)
CPT/HCPCS: 36415; 80053; 85025

== ENCOUNTER → 2020-11-26 08:04 | Outpatient (CLI) | payer MEDICARE, SELFPAY ==
--- NOTE | 2020-11-26 08:05 | DI.US.S_ITS ---
PROCEDURE: US ABDOMEN COMPLETE INDICATIONS: HEPATOMEGALY TECHNIQUE: Real-time scanning was performed of the abdominal and retroperitoneal organs, with image documentation. COMPARISON: [facility], CT, CT ABDOMEN WO/W CON, 01/09/2020, 9:39. FINDINGS: Liver: Liver is normal in size and homogeneous in echotexture. Liver has increased echogenicity likely represents fatty infiltration. There is a 2.6 x 2.8 x 2.0 centimeter hypoechoic lesion in the right lobe of liver near the francheska hepatis which may represent mass or focal fatty sparing. Gallbladder: There is a partially calcified, non mobile nodule in the gallbladder which may represent an adherent stone or polyp. Focal gallbladder wall thickening to 3.3 millimeters. No pericholecystic fluid. No sonographic Leos sign. Biliary ducts: Intrahepatic bile ducts are non-dilated. Extrahepatic bile duct caliber measures 7.6 mm. Normal is 6-7 mm or less in diameter, or 10 mm or less post-cholecystectomy. Pancreas: Visualized portions of the pancreas are sonographically normal. Spleen: Spleen is normal in size and homogeneous in echotexture. Kidneys: Kidneys are normal in size and echotexture. Right kidney measures 11.6 cm long; left kidney measures 12.7 cm long. No hydronephrosis or nephrolithiasis. There is a 1.6 x 1.6 by 1.8 centimeter shadowing lesion in the superior pole of the right kidney. Aorta: Visualized aorta is normal in caliber at less than 3 cm. Iliacs: Proximal common iliac arteries are normal in caliber at less than 2.5 cm. IVC: Intrahepatic inferior vena cava is patent. Miscellaneous: No free abdominal fluid. IMPRESSION: 1. Echogenic liver. Finding typically represents fatty infiltration; however, finding is nonspecific and correlation with clinical and laboratory findings is recommended to exclude other etiologies including hepatic cirrhosis. 2. 2.6 x 2.8 x 2.0 centimeter predominately hypoechoic lesion in the right lobe of the liver which may represent focal fatty sparing versus mass lesion. Recommend CT scan of the abdomen pelvis for further evaluation. 3. Nonmobile echogenic lesion in the gallbladder which may represent adherent stones. 4. Mildly dilated common bile duct. Recommend correlation with clinical and laboratory data to exclude biliary obstruction. Recommend MRCP if there is clinical concern for biliary obstruction. 5. 1.6 x 1.6 x 1.8 centimeter shadowing lesion superior pole right kidney which may be related to partially calcified cyst. Recommend CT scan of the abdomen pelvis for further evaluation Dictated by: Eleanor Keller MD, PhD on 11/26/2020 at 16:39 Approved by: Eleanor Keller MD, PhD on 11/26/2020 at 16:48
== END ==
PROVIDERS: PCP Internal Medicine; Referring Provider Internal Medicine Hematology & Oncology; Visit Provider Internal Medicine Hematology & Oncology
DX: C50.912 Malignant neoplasm of unspecified site of left female breast (principal); R16.0 Hepatomegaly, not elsewhere classified; N28.9 Disorder of kidney and ureter, unspecified; K76.9 Liver disease, unspecified; K83.8 Other specified diseases of biliary tract; K82.9 Disease of gallbladder, unspecified
CPT/HCPCS: 76700

== ENCOUNTER → 2020-12-05 14:44 | Outpatient (CLI) | payer MEDICARE, SELFPAY ==
--- NOTE | 2020-12-05 14:45 | DI.CT.S_ITS ---
PROCEDURE: CT ABDOMEN PELVIS WO/W CON INDICATIONS: liver lesion, breast cancer TECHNIQUE: After the administration of oral contrast, 5 mm thick sections acquired from the diaphragms to the iliac crests. After the administration of intravenous contrast, 5 mm thick sections acquired from the diaphragms to the symphysis. 5 mm thick coronal and sagittal reformats were acquired. For radiation dose reduction, the following was used: automated exposure control, adjustment of mA and/or kV according to patient size. COMPARISON: [facility], US, US ABDOMEN COMPLETE, 11/26/2020, 8:41. [facility], CT, CT ABDOMEN WO/W CON, 01/09/2020, 9:39. FINDINGS: Image quality: Excellent. ABDOMEN: Lung bases: Mild bibasilar atelectasis. Right lower lobe juxta diaphragmatic pulmonary nodule measuring 0.4 cm, unchanged. Heart size is normal. Solid organs: Liver is within normal limits in size. No focal lesion demonstrated. No arterial hyperenhancement or washout. Gallbladder is not distended. Layering gallstones. Biliary system is non-dilated. Pancreas enhances normally. Spleen is normal in size and enhancement. No adrenal nodules. Both kidneys are normal in size. Right upper/mid kidney exophytic cyst with rim calcifications measuring 2 cm, (7/51), unchanged. Simple cyst at the inferior pole the right kidney. No suspicious enhancement. No hydronephrosis or nephrolithiasis. Bowel and peritoneum: Stomach, small and large bowel loops are normal in caliber and wall thickness. Appendix is not seen. No significant diverticulosis. No free fluid or air. Nodes and vessels: No retroperitoneal or mesenteric adenopathy by size criteria. Aorta and inferior vena are normal in caliber. Extensive atherosclerotic plaque. Miscellaneous: No ventral hernias. PELVIS: Genitourinary: Bladder is within normal limits. Uterus is absent. Pelvic floor laxity. Miscellaneous: No inguinal hernias or adenopathy. Intramuscular lipoma posterior to the left hip. Bones: No suspicious bony lesions. No vertebral body compression fractures. IMPRESSION: 1. No focal hepatic lesion demonstrated. The abnormality on ultrasound could represent focal fatty sparing. Metastatic disease is felt to be unlikely. -If high suspicion for metastatic disease consider liver MRI with IV contrast. 2. Mildly complicated cyst in the upper/mid right kidney is unchanged. 3. Small pulmonary nodule at the right lower lobe measuring 0.4 cm is unchanged. 4. Cholelithiasis. Dictated by: Italo Espana M.D. on 12/05/2020 at 16:46 Approved by: Italo Espana M.D. on 12/05/2020 at 16:58
== END ==
PROVIDERS: PCP Internal Medicine; Referring Provider Internal Medicine Hematology & Oncology; Visit Provider Internal Medicine Hematology & Oncology
DX: C50.912 Malignant neoplasm of unspecified site of left female breast (principal); K76.9 Liver disease, unspecified
CPT/HCPCS: 74178; Q9967

== ENCOUNTER → 2021-05-23 07:03 | Outpatient (CLI) | payer MEDICARE, SELFPAY ==
[2021-05-23 08:22] LABS: Hematocrit 41.2 % (36-46); Hemoglobin 14.1 g/dL (12.0-16.0); Mean Corpuscular HGB Conc 34.2 % (30-36); Mean Corpuscular Hemoglobin 35.6 PG (26-34); Mean Corpuscular Volume 104.2 fL (80-100); Platelet Count 226 X10^3/uL (150-400); Red Blood Cell Count 3.96 X10^6/uL (4.0-5.2); Red Cell Distribution Width 14.2 % (11.6-14.8); White Blood Cell Count 7.7 X10^3/uL (4.5-11.0)
[2021-05-23 08:53] LABS: Sodium 130 mmol/L (137-145)
[2021-05-23 08:54] LABS: Alanine Aminotransferase 19 IU/L (<35); Albumin 4.3 g/dL (3.5-5.0); Albumin Globulin Ratio 1.6 (1.0-2.8); Alkaline Phosphatase 69 U/L (38-126); Aspartate Aminotransferase 29 IU/L (14-36); Bilirubin Total 0.8 mg/dL (0.2-1.3); Blood Urea Nitrogen 11 mg/dL (7-17); Calcium 9.9 mg/dL (8.4-10.2); Carbon Dioxide 28 mmol/L (22-32); Chloride 92 mmol/L (98-107); Estimated Glomerular Filt Rate > 60.0 mL/min (>60); Globulin 2.7 g/dL (1.7-4.1); Glucose 109 mg/dL (80-110); HEMOLYSIS 23 (0-50); Potassium 4.5 mmol/L (3.4-5.1)
== END ==
PROVIDERS: PCP Internal Medicine; Referring Provider Internal Medicine; Visit Provider Internal Medicine
DX: I48.20 Chronic atrial fibrillation, unspecified (principal)
CPT/HCPCS: 36415; 80053; 85027

== ENCOUNTER → 2021-06-05 09:44 | Outpatient (CLI) | payer MEDICARE, SELFPAY ==
--- NOTE | 2021-06-05 09:46 | DI.MG.S_ITS ---
BILATERAL DIGITAL SCREENING MAMMOGRAM 3D/2D WITH CAD POST LUMPECTOMY: 06/05/2021 CLINICAL: Routine screening. Family history of breast cancer. Breast cancer. Comparison is made to exams dated: 05/17/2020 mammogram, 05/16/2019 mammogram, and 05/14/2018 mammogram - [facility]. The tissue of both breasts is heterogeneously dense. This may lower the sensitivity of mammography. Current study was also evaluated with a Computer Aided Detection (CAD) system. There are benign calcifications in both breasts. There also are benign vascular calcifications in both breasts. Additionally, there are benign post operative findings in the left breast. No significant masses, calcifications, or other findings are seen in either breast. There has been no significant interval change. IMPRESSION: BENIGN There is no mammographic evidence of malignancy. A 1 year screening mammogram is recommended. This exam was interpreted at Station ID: [id number]. NOTE: For mammograms, a report in lay terms will be sent to the patient. Approximately 15% of breast malignancies will not be visualized mammographically. In the management of a palpable breast mass, a negative mammogram must not discourage biopsy of a clinically suspicious lesion. Electronically Signed By: Aldo cantu/hanny:06/05/2021 12:27:53 copy to: Miguel Angel Phelps letter sent: Normal Exam ACR BI-RADS Category 2: Benign Finding(s) 3342F
== END ==
PROVIDERS: PCP Internal Medicine; Referring Provider Internal Medicine; Visit Provider Internal Medicine
DX: Z12.31 Encounter for screening mammogram for malignant neoplasm of breast (principal); Z80.3 Family history of malignant neoplasm of breast; Z85.3 Personal history of malignant neoplasm of breast
CPT/HCPCS: 77063; 77067

== ENCOUNTER → 2021-12-06 13:21 | Outpatient (CLI) | payer MEDICARE, SELFPAY ==
--- NOTE | 2021-12-06 | DI.ECHO.S_ITS ---
[place] +---------+ [facility] +---------+ : : [address] : : : : [id number] : : : : Phone: [phone]+ Echocardiogram Report + + :Name: SAMUEL VERMA Study Date: 12/06/2021 Height: 67 in : :[facility] ReadingLocation: Weight: 200 lb : : Gender: Female BSA: 2.0 m2 : :: 1935 Age: 86 yrs BP: 150/103 mmHg: :Reason For Study: Murmur : :Ordering Physician: MISSY, : :ALAINA Degroot Performed By: Dave Ha : :Referring: ALAINA LOUIS : + + Interpretation Summary The ejection fraction is estimated to be 60-65%. The right ventricle is moderately dilated. Both atria are severely dilated. There is mild mitral regurgitation. The aortic valve is moderately calcified. There is moderate aortic stenosis. The aortic valve mean gradient is 22 mmHg. Compared to the prior echo study, there has been an increase in the severity of aortic stenosis. There is severe tricuspid regurgitation. The right ventricular systolic pressure is estimated to be at least 62 mmHg based on an estimated right atrial pressure of 15 mm Hg. Compared to the prior echo exam, there has been an increase in the severity of pulmonary hypertension. Procedure: A two-dimensional transthoracic echocardiogram with color flow and Doppler was performed. The study quality was technically difficult. Comparison is made with the echocardiogram of 10/11/2020. Left Ventricle: The left ventricle is normal in size. There is mild concentric left ventricular hypertrophy. The left ventricle is not well visualized. The ejection fraction is estimated to be 60-65%. There are no focal wall motion abnormalities. Diastolic function could not be accurately assessed due to atrial fibrillation. Right Ventricle: The right ventricle is moderately dilated. The right ventricular systolic function is normal. Atria: Both atria are severely dilated. The interatrial septum grossly appears intact with no obvious evidence for an atrial septal defect. Mitral Valve: There is moderate mitral annular calcification. There is mild mitral regurgitation. Compared to the prior echo study, there has been no change in the severity of mitral regurgitation. Aortic Valve: The aortic valve is moderately calcified. There is moderate aortic stenosis. The aortic valve mean gradient is 22 mmHg. Compared to the prior echo study, there has been an increase in the severity of aortic stenosis. No aortic regurgitation is present. Tricuspid Valve: The tricuspid valve leaflets are thin and pliable. There is severe tricuspid regurgitation. The right ventricular systolic pressure is estimated to be at least 62 mmHg based on an estimated right atrial pressure of 15 mm Hg. Compared to the prior echo exam, there has been an increase in the severity of pulmonary hypertension. Pulmonic Valve: The pulmonic valve is normal in structure and function. There is trace pulmonic regurgitation. Great Vessels: The aortic root is normal size. The dimensions of the ascending aorta are normal. The IVC is dilated (diameter is greater than 2.1 cm) and it collapses less than 50% with a sniff. This suggests a high right atrial pressure of 15 mm Hg. Pericardium/ Pleura There is no pericardial effusion. There is no pleural effusion. MMode/2D Measurements & Calculations LVIDd: 4.2 cm LVOT diam: 1.9 cm LVIDs: 2.3 cm Ao root diam: 3.0 cm FS: 44.5 % asc Aorta Diam: 3.6 cm IVSd: 1.1 cm LVPWd: 1.1 cm LV forrester. diameter/BSA (cm/m^2): 2.1 LV sys. diameter/BSA (cm/m^2): 1.1 LA A2 area: 29.6 cm2 RA long axis: 7.6 cm LA A4 area: 28.3 cm2 RA area: 35.9 cm2 LA length (vol): 7.1 cm RA vol: 144.0 ml LA vol: 99.7 ml RA : 71.2 ml/m2 LA vol index: 49.3 ml/m2 IVC diam: 2.8 cm TAPSE: 1.8 cm Doppler Measurements & Calculations Ao V2 max: 304.6 cm/sec LVOT Max Oscar: 75.0 cm/sec Ao V2 mean: 221.6 cm/sec LV V1 max P.3 mmHg Ao max P.1 mmHg LV V1 VTI: 14.6 cm Ao mean P.1 mmHg NIMISHA(I,D): 0.74 cm2 Ao V2 VTI: 57.1 cm NIMISHA(V,D): 0.71 cm2 sev ratio: 0.26 NMIISHA indexed to BSA (cm^2/m^2): 0.37 TR max oscar: 341.8 cm/sec SV(LVOT): 42.2 ml TR max P.7 mmHg Reading Physician:02:45 PM
== END ==
PROVIDERS: PCP Internal Medicine; Referring Provider Internal Medicine; Visit Provider Internal Medicine
DX: R01.1 Cardiac murmur, unspecified (principal); I08.3 Combined rheumatic disorders of mitral, aortic and tricuspid valves
CPT/HCPCS: 93306

== ENCOUNTER 2022-05-23 16:05 | Emergency (ER) | payer MEDICARE, SELFPAY ==
[2022-05-23] VITALS (20 sets, daily range): BP systolic 137–204; BP diastolic 65–114; PULSE 93–124; RESP 16–29; O2SAT 92–98; BMI 32.3
--- NOTE | 2022-05-23 16:58 | DI.CT.S_ITS ---
PROCEDURE: CT HEAD/BRAIN WO CON INDICATIONS: head injury/thinners TECHNIQUE: Noncontrast 4.5 mm thick angled axial sections acquired from the foramen magnum to the vertex, with coronal and sagittal reformats. For radiation dose reduction, the following was used: automated exposure control, adjustment of mA and/or kV according to patient size. COMPARISON: None. FINDINGS: Image quality: Excellent. CSF spaces: Basal cisterns are patent. No extra-axial fluid collections. The ventricles are symmetric in size and shape. Brain: There is a small amount of acute intracranial hemorrhage seen involving the left frontal region, which is best demonstrated on coronal reformatted images. This measures up to 2 mm in thickness and is attributed to subdural hemorrhage. No intracranial masses. There is cerebral volume loss for age, with resultant ventricular and sulcal prominence. There are periventricular and deep white matter chronic small vessel ischemic changes. There is intracranial internal carotid artery atherosclerosis. Skull and face: Soft tissue hematoma can be seen involving the right periorbital and the right anterior temporal region. No associated calvarial fracture is seen. Calvarium and visualized facial bones appear intact, without suspicious lesions. Sinuses: Visualized sinuses and mastoids are clear. IMPRESSION: There is a small amount of acute subdural hemorrhage seen involving the left superior frontal region, which is attributed to a contrecoup injury. Right-sided soft tissue hematoma is seen. No associated fracture is seen. Note: Critical finding discussed by telephone with Dr. Mchugh at 4:29 p.m. [place] time on May 23, 2022. Dictated by: Jey Mcdowell M.D. on 05/23/2022 at 16:26 Approved by: Jey Mcdowell M.D. on 05/23/2022 at 16:30
--- NOTE | 2022-05-23 17:49 | DI.CT.S_ITS ---
PROCEDURE: CT CERVICAL SPINE WO CON INDICATIONS: Trauma TECHNIQUE: Noncontrast 3 mm thick sections acquired from the skull base to the T4 level. Sagittal and coronal reformats were then constructed. For radiation dose reduction, the following was used: automated exposure control, adjustment of mA and/or kV according to patient size. COMPARISON: None. FINDINGS: Image quality: Excellent. Bones: No fractures or dislocations. Visualized superior ribs are intact. Multilevel degenerative changes are present. Soft tissues: Prevertebral soft tissues are normal in thickness. No paravertebral hematomas. No apical pneumothoraces. 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 No priors available for comparison. IMPRESSION: Multilevel degenerative changes of visualized fracture. Dictated by: Mima Chaves M.D. on 05/23/2022 at 18:14 Approved by: Mima Chaves M.D. on 05/23/2022 at 18:17
--- NOTE | 2022-05-23 17:49 | DI.RAD.S_ITS ---
PROCEDURE: XR CHEST 1V INDICATIONS: hit head TECHNIQUE: One view of the chest was acquired. COMPARISON: [facility], , CHEST 2 VIEW, 07/04/2008, 11:39. FINDINGS: Surgical changes and devices: Left axillary clips. Lungs and pleura: Mild increased vascularity. Mediastinum: Mediastinal contours appear normal. Heart size is enlarged. Bones and chest wall: No suspicious bony lesions. Overlying soft tissues appear unremarkable. IMPRESSION: Mild increased vascularity suggestive of edema. Dictated by: Mima Chaves M.D. on 05/23/2022 at 18:29 Approved by: Mima Chaves M.D. on 05/23/2022 at 18:29
--- NOTE | 2022-05-23 17:52 | ED_ITS ---
HPI - Head Injury <Yari Mcuhgh, DO - Last Filed: 05/24/22 07:10> General Chief complaint: Trauma Stated complaint: Fell, Hit head Time Seen by Provider: 05/23/22 17:49 Source: family Mode of arrival: Wheelchair Limitations: other (dementia at baseline) History of Present Illness HPI Narrative: This is an 86-year-old female on warfarin for atrial fibrillation, hypertension, dyslipidemia and hypothyroidism as well as dementia. Patient presents with her today she had a ground level fall while ambulating with her at a car repair facility and he states she sort of fell forward and hit the right side of her head on a door but did end up on the ground. She has bruising over her right brow. Patient denies headache, she denies neck pain, no chest pain or shortness of breath no nausea or vomiting. No numbness, tingling or new weakness. No other GI or urinary symptoms. Patient normally has some difficulty with ambulation and adamantly refuses to use a walker. She relies on her to help her with ambulation. Patient injured her head at about 230 this afternoon. She lives with her , and their daughter is currently visiting from [place]. Patient knows that she fell she does not remember the details but her states that this is typical. Related Data Home Medications Medication Instructions Recorded Confirmed atorvastatin 20 mg tablet (Lipitor) 20 mg PO QDAY ##0 06/04/16 05/23/22 diltiazem HCl 240 mg 240 mg PO QAM ##0 06/04/16 05/23/22 capsule,extended release 24 hr metoprolol tartrate 50 mg tablet 50 mg PO BID ##0 06/04/16 05/23/22 warfarin 5 mg tablet (Coumadin) 5 mg PO QDAY ##0 06/04/16 05/23/22 sennosides 8.6 mg tablet (Senokot) 8.6 mg DAILY 10/05/18 05/23/22 acetaminophen 325 mg tablet 650 mg PO TID 05/23/22 05/23/22 calcium 600 mg capsule 600 mg PO BID 05/23/22 05/23/22 levothyroxine 125 mcg tablet 125 mcg PO QAM 05/23/22 05/23/22 loratadine 10 mg tablet (Claritin) 10 mg PO DAILY 05/23/22 05/23/22 valsartan 160 mg tablet 160 mg PO DAILY 05/23/22 05/23/22 vitamin B12 1,000 mcg-folic acid 1 shira sublingual DAILY 05/23/22 05/23/22 400 mcg sublingual lozenge Allergies Allergy/AdvReac Type Severity Reaction Status Date / Time allopurinol Allergy Intermediate Fatigued Verified 05/23/22 19:18 Penicillins Allergy Mild RASH Verified 05/23/22 19:18 adhesive Allergy Unknown Verified 05/23/22 19:18 codeine AdvReac Unknown Verified 05/23/22 19:18 Review of Systems <Yari Mchugh DO - Last Filed: 05/24/22 07:10> Review of Systems ROS Unobtainable: All systems reviewed & are unremarkable except as noted in HPI and below Patient History <Yari Mchugh DO - Last Filed: 05/24/22 07:10> Medical History (Updated 05/24/22 @ 04:14 by Loren Marie MD) Afib Arthritis HTN (hypertension) Family History Mother Cancer Father Heart disease Sister Cancer Social History marital status: household members: spouse Smoking Status: Never smoker alcohol intake: current substance use type: does not use Smoking Status: Never smoker Substance Use Type: does not use Exam <Yari Mchugh DO - Last Filed: 05/24/22 07:10> Narrative Exam Narrative: GEN: Alert female, answers questions appropriately but does have some short- term memory issues. Patient appears in mild distress. HEAD: Patient has some ecchymosis and hematoma over the right brow, no raccoon/Duffy sign. NECK: Nontender, painless range of motion, trachea midline Positive for Nexus criteria, there is no midline line tenderness, distracting injury, baseline but altered mental status, no acute neuro deficit, recent EtOH. EYES: PERRLA, EOMI ENT: External inspection normal other than noted above no facial bone tenderness, trachea is midline, TM's are normal no hemotypanum, Nares are clear, no septal hematoma, no dental or oral injury, airway is normal and with normal occlusion RESP: Chest is nontender and has symmetric movement, no ecchymosis, breath sounds are normal no crackles, wheezes or rales CVS: Heart sounds are normal, no murmur noted, No JVD. ABG/GI: Nontender, soft, normal bowel sounds, no distention, no organomegaly, pelvic rock is negativ NEURO: Oriented AOx3, neuro is grossly intact, sensation and motor is normal all 4 extremities moving, cranial nerves II through XII are intact, GCS is 14, patient has some mild confusion answers majority of her past medical history well-lit does seem to have some short-term memory issues her states this is normal for her. PSYCH: Normal mood and affect SKIN: Intact, warm and dry, no crepitus and without decubitus BACK: No CVA tenderness, no vertebral tenderness, no step-off's, no crepitus EXT: Atraumatic, hips are nontender, no pedal edema, normal color and temperature, normal range of motion of extremities with normal tendon exam, 2+ pulses in all four extremities Initial Vital Signs Initial Vital Signs: Vital Signs Pulse Rate 103 H 05/23/22 16:59 Respiratory Rate 16 05/23/22 16:59 Blood Pressure 142/65 H 05/23/22 16:59 Pulse Oximetry 97 05/23/22 16:59 Oxygen Delivery Method 05/23/22 16:59 <Loren Marie MD - Last Filed: 05/24/22 04:53> Initial Vital Signs Initial Vital Signs: Vital Signs Pulse Rate 103 H 05/23/22 16:59 Respiratory Rate 16 05/23/22 16:59 Blood Pressure 142/65 H 05/23/22 16:59 Pulse Oximetry 97 05/23/22 16:59 Oxygen Delivery Method 05/23/22 16:59 Scores <Yari Mchugh DO - Last Filed: 05/24/22 07:10> GCS Lynn coma scale eye opening: Spontaneous Lynn coma scale verbal response: Confused Lynn coma scale motor response: Obey commands Neeta coma scale total score: 14 Nexus Score for C-Spine Focal Neurologic deficit present: No Midline spinal tenderness present: No Altered level of conciousness present: Yes (Baseline dementia) Intoxication present: No Distracting Injury Present: No Nexus Criteria for C-spine: 1 <Loren Marie MD - Last Filed: 05/24/22 04:53> GCS Lynn coma scale total score: 14 Nexus Score for C-Spine Nexus Criteria for C-spine: 1 Course <Yari Mchugh DO - Last Filed: 05/24/22 07:10> Orders Ordered: ED Orders 05/24/22 03:00 CT head/brain wo con Stat 05/24/22 04:03 Urine Drug Screen, Rapid Stat Discontinued Medications Diphtheria/Tetanus/Acell Pertussis (Tet,Diph,Pertuss(Acell),Vac/Pf 0.5 Ml Syringe) 0.5 ml IM .ONCE ONE Stop: 05/23/22 17:50 Last Admin: 05/23/22 19:35 Dose: 0.5 ml Documented By: MARBELLA Phytonadione 10 mg/ Sodium (Chloride) 101 mls @ 202 mls/hr IV NOW ONE Stop: 05/23/22 18:25 Last Infusion: 05/23/22 19:39 Dose: 0 mls/hr Documented By: Admin: 05/23/22 18:49 Dose: 202 mls/hr Documented By: KALEB Prothrombin Complex Concent ( Human) 2,000 unit/Miscellaneous 80 mls @ 653.17 mls/hr IV NOW ONE; Protocol Stop: 05/23/22 18:31 Last Infusion: 05/23/22 19:04 Dose: 0 unit/kg/min, 0 mls/hr Documented By: Admin: 05/23/22 18:41 Dose: 3 unit/kg/min, 653.17 mls/hr Documented By: KALEB Metoprolol Tartrate (Metoprolol Ir 25 Mg Tablet) 50 mg PO NOW ONE Stop: 05/23/22 19:51 Last Admin: 05/23/22 20:13 Dose: 50 mg Documented By: KALEB Consultations Consultation #1: Dr. Matta, [facility]. Discussed it is quite small they would not intervene at this size. Recommend repeat CT at 4-6 hours, if no change or increase in size can discharge with recommendation to hold warfarin for at least a week but would strongly recommend discussion with primary care about risks versus benefits with anticoagulation and an elderly demented individual who has fallen. If increasing in size they asked for to be re-contacted. Time: 17:20 Vital Signs Vital signs: Vital Signs - 8 hr 05/23/22 23:44 05/23/22 23:30 05/23/22 23:30 Pulse Rate 109 H 102 H Respiratory Rate 16 26 H Blood Pressure 157/100 H 164/114 H Pulse Oximetry 97 97 Oxygen Delivery Method Room Air 05/23/22 23:43 05/23/22 23:43 05/24/22 00:00 Pulse Rate 103 H Respiratory Rate 29 H Blood Pressure 157/100 H 155/87 H Pulse Oximetry 97 Oxygen Delivery Method 05/24/22 00:00 05/24/22 00:30 05/24/22 00:30 Pulse Rate 102 H 107 H Respiratory Rate 33 H 28 H Blood Pressure 146/96 H Pulse Oximetry 96 95 Oxygen Delivery Method 05/24/22 01:00 05/24/22 01:00 05/24/22 04:39 Pulse Rate 109 H 113 H Respiratory Rate 28 H 16 Blood Pressure 166/88 H 165/98 H Pulse Oximetry 97 97 Oxygen Delivery Method Room Air 05/24/22 05:26 Pulse Rate 110 H Respiratory Rate 20 Blood Pressure 142/85 H Pulse Oximetry 97 Oxygen Delivery Method Room Air <Loren Marie MD - Last Filed: 05/24/22 04:53> Orders Ordered: ED Orders 05/24/22 03:00 CT head/brain wo con Stat 05/24/22 04:03 Urine Drug Screen, Rapid Stat Discontinued Medications Diphtheria/Tetanus/Acell Pertussis (Tet,Diph,Pertuss(Acell),Vac/Pf 0.5 Ml Syringe) 0.5 ml IM .ONCE ONE Stop: 05/23/22 17:50 Last Admin: 05/23/22 19:35 Dose: 0.5 ml Documented By: MARBELLA Phytonadione 10 mg/ Sodium (Chloride) 101 mls @ 202 mls/hr IV NOW ONE Stop: 05/23/22 18:25 Last Infusion: 05/23/22 19:39 Dose: 0 mls/hr Documented By: Admin: 05/23/22 18:49 Dose: 202 mls/hr Documented By: KALEB Prothrombin Complex Concent ( Human) 2,000 unit/Miscellaneous 80 mls @ 653.17 mls/hr IV NOW ONE; Protocol Stop: 05/23/22 18:31 Last Infusion: 05/23/22 19:04 Dose: 0 unit/kg/min, 0 mls/hr Documented By: Admin: 05/23/22 18:41 Dose: 3 unit/kg/min, 653.17 mls/hr Documented By: KALEB Metoprolol Tartrate (Metoprolol Ir 25 Mg Tablet) 50 mg PO NOW ONE Stop: 05/23/22 19:51 Last Admin: 05/23/22 20:13 Dose: 50 mg Documented By: KALEB Vital Signs Vital signs: Vital Signs - 8 hr 05/23/22 23:44 05/23/22 23:30 05/23/22 23:30 Pulse Rate 109 H 102 H Respiratory Rate 16 26 H Blood Pressure 157/100 H 164/114 H Pulse Oximetry 97 97 Oxygen Delivery Method Room Air 05/23/22 23:43 05/23/22 23:43 05/24/22 00:00 Pulse Rate 103 H Respiratory Rate 29 H Blood Pressure 157/100 H 155/87 H Pulse Oximetry 97 Oxygen Delivery Method 05/24/22 00:00 05/24/22 00:30 05/24/22 00:30 Pulse Rate 102 H 107 H Respiratory Rate 33 H 28 H Blood Pressure 146/96 H Pulse Oximetry 96 95 Oxygen Delivery Method 05/24/22 01:00 05/24/22 01:00 05/24/22 04:39 Pulse Rate 109 H 113 H Respiratory Rate 28 H 16 Blood Pressure 166/88 H 165/98 H Pulse Oximetry 97 97 Oxygen Delivery Method Room Air 05/24/22 05:26 Pulse Rate 110 H Respiratory Rate 20 Blood Pressure 142/85 H Pulse Oximetry 97 Oxygen Delivery Method Room Air MDM - Head Injury <Yari Mchugh DO - Last Filed: 05/24/22 07:10> Lab Data Result diagrams: 05/23/22 17:50 05/23/22 17:50 Labs: Lab Results 05/23/22 05/23/22 05/23/22 Range/Units 17:50 17:50 17:50 WBC 13.2 H (4.5-11.0) X10^3/uL RBC 4.24 (4.0-5.2) X10^6/uL Hgb 14.1 (12.0-16.0) g/dL Hct 42.1 (36-46) % MCV 99.3 (80-100) fL MCH 33.3 (26-34) PG MCHC 33.5 (30-36) % RDW 15.2 H (11.6-14.8) % Plt Count 226 (150-400) X10^3/uL Neut % (Auto) 79.7 H (50-75) % Lymph % (Auto) 11.6 L (25-40) % [place] % (Auto) 7.3 (3-14) % Eos % (Auto) 1.1 L (2-4) % Baso % (Auto) 0.3 (0-2) % Neut # (Auto) 58493 H (1504-0984) /uL Lymph # (Auto) 1500 (3627-3285) /uL [place] # (Auto) 1000 H (0-900) /uL Eos # (Auto) 100 (0-450) /uL Baso # (Auto) 0 (0-100) /uL PT 22.7 H (10.1-12.7) SECONDS INR 2.0 H (0.9-1.3) APTT 37 H (26-36) SECONDS Sodium 133 L (137-145) mmol/L Potassium 4.1 (3.4-5.1) mmol/L Chloride 93 L (98-107) mmol/L Carbon Dioxide 26 (22-32) mmol/L BUN 12 (7-17) mg/dL Creatinine 0.65 (0.52-1.04) mg/dL Estimated GFR > 60 (>60) mL/min BUN/Creatinine Ratio 18.5 (6-22) Glucose 157 H (80-110) mg/dL Lactate (0.7-2.1) mmol/L Calcium 9.7 (8.4-10.2) mg/dL Total Bilirubin 0.7 (0.2-1.3) mg/dL AST 33 (14-36) IU/L ALT 26 (<35) IU/L Alkaline Phosphatase 100 (38-126) U/L Total Creatine Kinase 200 H (30-135) U/L CK-MB (CK-2) 4.48 H (<2.37) ng/mL CK-MB (CK-2) Rel Index 2.2 (1.5-5.0) % Troponin I < 0.012 (0.01-0.034) ng/mL Total Protein 8.5 H (6.3-8.2) g/dL Albumin 4.7 (3.5-5.0) g/dL Globulin 3.8 (1.7-4.1) g/dL Albumin/Globulin Ratio 1.2 (1.0-2.8) Lipase 87 (23-300) U/L U Opiates 300ng/mL cut (Negative) Ur Oxycodone Screen (Negative) Urine Methadone Screen (Negative) Ur Barbiturates Screen (Negative) U Tricyclic Antidepress (Negative) Ur Phencyclidine Scrn (Negative) Ur Amphetamines Screen (Negative) U Methamphetamines Scrn (Negative) Ur MDMA Scrn (Ecstasy) (Negative) U Benzodiazepines Scrn (Negative) Urine Cocaine Screen (Negative) U Marijuana (THC) Screen (Negative) Ethyl Alcohol < 10 ( - 10) mg/dL SARS-CoV-2 (PCR) (Negative) 05/23/22 05/23/22 05/23/22 Range/Units 17:50 17:55 20:15 WBC (4.5-11.0) X10^3/uL RBC (4.0-5.2) X10^6/uL Hgb (12.0-16.0) g/dL Hct (36-46) % MCV (80-100) fL MCH (26-34) PG MCHC (30-36) % RDW (11.6-14.8) % Plt Count (150-400) X10^3/uL Neut % (Auto) (50-75) % Lymph % (Auto) (25-40) % [place] % (Auto) (3-14) % Eos % (Auto) (2-4) % Baso % (Auto) (0-2) % Neut # (Auto) (2071-2294) /uL Lymph # (Auto) (8487-3120) /uL [place] # (Auto) (0-900) /uL Eos # (Auto) (0-450) /uL Baso # (Auto) (0-100) /uL PT (10.1-12.7) SECONDS INR (0.9-1.3) APTT (26-36) SECONDS Sodium (137-145) mmol/L Potassium (3.4-5.1) mmol/L Chloride (98-107) mmol/L Carbon Dioxide (22-32) mmol/L BUN (7-17) mg/dL Creatinine (0.52-1.04) mg/dL Estimated GFR (>60) mL/min BUN/Creatinine Ratio (6-22) Glucose (80-110) mg/dL Lactate 2.6 H 2.4 H (0.7-2.1) mmol/L Calcium (8.4-10.2) mg/dL Total Bilirubin (0.2-1.3) mg/dL AST (14-36) IU/L ALT (<35) IU/L Alkaline Phosphatase (38-126) U/L Total Creatine Kinase (30-135) U/L CK-MB (CK-2) (<2.37) ng/mL CK-MB (CK-2) Rel Index (1.5-5.0) % Troponin I (0.01-0.034) ng/mL Total Protein (6.3-8.2) g/dL Albumin (3.5-5.0) g/dL Globulin (1.7-4.1) g/dL Albumin/Globulin Ratio (1.0-2.8) Lipase (23-300) U/L U Opiates 300ng/mL cut (Negative) Ur Oxycodone Screen (Negative) Urine Methadone Screen (Negative) Ur Barbiturates Screen (Negative) U Tricyclic Antidepress (Negative) Ur Phencyclidine Scrn (Negative) Ur Amphetamines Screen (Negative) U Methamphetamines Scrn (Negative) Ur MDMA Scrn (Ecstasy) (Negative) U Benzodiazepines Scrn (Negative) Urine Cocaine Screen (Negative) U Marijuana (THC) Screen (Negative) Ethyl Alcohol ( - 10) mg/dL SARS-CoV-2 (PCR) Negative (Negative) 05/24/22 Range/Units 04:03 WBC (4.5-11.0) X10^3/uL RBC (4.0-5.2) X10^6/uL Hgb (12.0-16.0) g/dL Hct (36-46) % MCV (80-100) fL MCH (26-34) PG MCHC (30-36) % RDW (11.6-14.8) % Plt Count (150-400) X10^3/uL Neut % (Auto) (50-75) % Lymph % (Auto) (25-40) % [place] % (Auto) (3-14) % Eos % (Auto) (2-4) % Baso % (Auto) (0-2) % Neut # (Auto) (6404-5105) /uL Lymph # (Auto) (7887-2260) /uL [place] # (Auto) (0-900) /uL Eos # (Auto) (0-450) /uL Baso # (Auto) (0-100) /uL PT (10.1-12.7) SECONDS INR (0.9-1.3) APTT (26-36) SECONDS Sodium (137-145) mmol/L Potassium (3.4-5.1) mmol/L Chloride (98-107) mmol/L Carbon Dioxide (22-32) mmol/L BUN (7-17) mg/dL Creatinine (0.52-1.04) mg/dL Estimated GFR (>60) mL/min BUN/Creatinine Ratio (6-22) Glucose (80-110) mg/dL Lactate (0.7-2.1) mmol/L Calcium (8.4-10.2) mg/dL Total Bilirubin (0.2-1.3) mg/dL AST (14-36) IU/L ALT (<35) IU/L Alkaline Phosphatase (38-126) U/L Total Creatine Kinase (30-135) U/L CK-MB (CK-2) (<2.37) ng/mL CK-MB (CK-2) Rel Index (1.5-5.0) % Troponin I (0.01-0.034) ng/mL Total Protein (6.3-8.2) g/dL Albumin (3.5-5.0) g/dL Globulin (1.7-4.1) g/dL Albumin/Globulin Ratio (1.0-2.8) Lipase (23-300) U/L U Opiates 300ng/mL cut Negative (Negative) Ur Oxycodone Screen Negative (Negative) Urine Methadone Screen Negative (Negative) Ur Barbiturates Screen Negative (Negative) U Tricyclic Antidepress Negative (Negative) Ur Phencyclidine Scrn Negative (Negative) Ur Amphetamines Screen Negative (Negative) U Methamphetamines Scrn Negative (Negative) Ur MDMA Scrn (Ecstasy) Negative (Negative) U Benzodiazepines Scrn Negative (Negative) Urine Cocaine Screen Negative (Negative) U Marijuana (THC) Screen Negative (Negative) Ethyl Alcohol ( - 10) mg/dL SARS-CoV-2 (PCR) (Negative) Imaging Data Chest x-ray: Radiologist's Impression: [address] [address] XRay Report Signed Patient: Rose Marie Blunt MR#: [id number] : 1935 Acct:[id number] Age/Sex: 86 / F Date of Service: 05/23/22 Loc: ED Accession Number: [id number] ?? Procedure: XR chest 1V Ordering Provider: Yari Mchugh D.O. PROCEDURE:? XR CHEST 1V ? INDICATIONS:? hit head ? TECHNIQUE:? One view of the chest was acquired.? ? COMPARISON:? [facility], , CHEST 2 VIEW, 07/04/2008, 11:39. ? FINDINGS:? ? Surgical changes and devices:? Left axillary clips. ? Lungs and pleura:? Mild increased vascularity. ? Mediastinum:? Mediastinal contours appear normal.? Heart size is enlarged. ? Bones and chest wall:? No suspicious bony lesions.? Overlying soft tissues appear unremarkable.? ? IMPRESSION:? Mild increased vascularity suggestive of edema. ? ? Dictated by: Mima Chaves M.D. on 05/23/2022 at 18:29 ? ? Approved by: Mima Chaves M.D. on 05/23/2022 at 18:29?? CT scan - head: Radiologist's Impression: Rose Marie Blunt??86??F??1935 ? Allergy/Adv: allopurinol, Penicillins, adhesive, codeine (More??) Close Chest X-Ray (Signed) Mima Chaves - 05/23/[address] (Signed) Mima Chaves - 05/23/[address] (Signed) Jey Mcdowell - 05/23/22 Echocardiogram Ultrasound (Signed) Noah Richards - 12/06/21 Mammogram Screening (Signed) Aldo Yo - 06/05/21 Abdomen/Pelvis CT (Signed) Italo Espana - 12/05/20 Abdomen Ultrasound (Signed) Eleanor Keller - 11/26/20 Echocardiogram Ultrasound (Signed) CarlosRobson wangjeev - 10/11/20 Mammogram Screening (Signed) Francisco Arce - 05/17/[address] (Signed) Megan Cuadra - 01/09/20 Mammogram Screening (Signed) Francisco Arce - 05/16/19 Bone Densitometry 05/16/19 DEXA Result 05/16/19 Mammogram Screening (Signed) Nicholas Powell - 05/14/18 Mammogram Diagnostic (Signed) Megan Cuadra - 11/09/17 Launch?[place] [address] CT Scan Report Signed Patient: Rose Marie Blunt MR#: [id number] : 1935 Acct:[id number] Age/Sex: 86 / F Date of Service: 05/23/22 Loc: ED Accession Number: [id number] ?? Procedure: CT head/brain wo con Ordering Provider: Yari Mchugh D.O. PROCEDURE:? CT HEAD/BRAIN WO CON ? INDICATIONS:? head injury/thinners ? TECHNIQUE:? Noncontrast 4.5 mm thick angled axial sections acquired from the foramen magnum to the vertex, with coronal and sagittal reformats.? For radiation dose reduction, the following was used:? automated exposure control, adjustment of mA and/or kV according to patient size.? ? COMPARISON:? None. ? FINDINGS:? Image quality:? Excellent.? ? CSF spaces:? Basal cisterns are patent.? No extra-axial fluid collections.? The ventricles are symmetric in size and shape.? ? Brain:? There is a small amount of acute intracranial hemorrhage seen involving the left frontal region, which is best demonstrated on coronal reformatted images.? This measures up to 2 mm in thickness and is attributed to subdural hemorrhage. ? No intracranial masses.? There is cerebral volume loss for age, with resultant ventricular and sulcal prominence.? There are periventricular and deep white matter chronic small vessel ischemic changes.? There is intracranial internal carotid artery atherosclerosis.? ? Skull and face:? Soft tissue hematoma can be seen involving the right periorbital and the right anterior temporal region.? No associated calvarial fracture is seen.? Calvarium and visualized facial bones appear intact, without suspicious lesions.? ? Sinuses:? Visualized sinuses and mastoids are clear.? ? ? IMPRESSION:? There is a small amount of acute subdural hemorrhage seen involving the left superior frontal region, which is attributed to a contrecoup injury. ? Right-sided soft tissue hematoma is seen. ? No associated fracture is seen. ? ? ? Note:? Critical finding discussed by telephone with Dr. Mchugh at 4:29 p.m. [place] time on May 23, 2022.? ? ? Dictated by: Jey Mcdowell M.D. on 05/23/2022 at 16:26 ? ? Approved by: Jey Mcdowell M.D. on 05/23/2022 at 16:30?? ECG Data Attestation: I personally reviewed and interpreted this ECG as follows: MDM Narrative Medical decision making narrative: This an 86-year-old female anticoagulated on warfarin with an INR of 2 who had a ground level fall today this appears to be mechanical, patient has a 1-2 mm some neural without any midline shift that appears to be a contrecoup injury this patient is and edema are on the right. Patient C-spine is negative, no other acute changes are appreciated she does have some baseline dementia appears to be neurologically intact. Was given vitamin K and Kcentra, goals of care were d iscussed with family they are unsure about code status and level of intervention, images were pushed to [facility] for consultation with Neurosurgery while they continued this discussion with daughter and and patient. Patient's heart rate and blood pressure have elevated but she is due for her evening medications these will be given. I spoke with Neurosurgery at [facility] they recommend repeat head CT in 4-6 hours, holding warfarin for at least 1 week if stable and discussion with primary care about anticoagulation risks versus benefits and patient in her current situation. If increasing in size they asked for recontact. Updated patient, and daughter is her way in to discuss goals of care if they become necessary. Patient signed out to Dr. Marie while awaiting repeat imaging. <Loren Marie MD - Last Filed: 05/24/22 04:53> Lab Data Labs: Lab Results 11/18/22 11/18/22 11/18/22 Range/Units 17:50 17:50 17:50 WBC 13.2 H (4.5-11.0) X10^3/uL RBC 4.24 (4.0-5.2) X10^6/uL Hgb 14.1 (12.0-16.0) g/dL Hct 42.1 (36-46) % MCV 99.3 (80-100) fL MCH 33.3 (26-34) PG MCHC 33.5 (30-36) % RDW 15.2 H (11.6-14.8) % Plt Count 226 (150-400) X10^3/uL Neut % (Auto) 79.7 H (50-75) % Lymph % (Auto) 11.6 L (25-40) % [place] % (Auto) 7.3 (3-14) % Eos % (Auto) 1.1 L (2-4) % Baso % (Auto) 0.3 (0-2) % Neut # (Auto) 03881 H (3245-0727) /uL Lymph # (Auto) 1500 (4808-5622) /uL [place] # (Auto) 1000 H (0-900) /uL Eos # (Auto) 100 (0-450) /uL Baso # (Auto) 0 (0-100) /uL PT 22.7 H (10.1-12.7) SECONDS INR 2.0 H (0.9-1.3) APTT 37 H (26-36) SECONDS Sodium 133 L (137-145) mmol/L Potassium 4.1 (3.4-5.1) mmol/L Chloride 93 L (98-107) mmol/L Carbon Dioxide 26 (22-32) mmol/L BUN 12 (7-17) mg/dL Creatinine 0.65 (0.52-1.04) mg/dL Estimated GFR > 60 (>60) mL/min BUN/Creatinine Ratio 18.5 (6-22) Glucose 157 H (80-110) mg/dL Lactate (0.7-2.1) mmol/L Calcium 9.7 (8.4-10.2) mg/dL Total Bilirubin 0.7 (0.2-1.3) mg/dL AST 33 (14-36) IU/L ALT 26 (<35) IU/L Alkaline Phosphatase 100 (38-126) U/L Total Creatine Kinase 200 H (30-135) U/L CK-MB (CK-2) 4.48 H (<2.37) ng/mL CK-MB (CK-2) Rel Index 2.2 (1.5-5.0) % Troponin I < 0.012 (0.01-0.034) ng/mL Total Protein 8.5 H (6.3-8.2) g/dL Albumin 4.7 (3.5-5.0) g/dL Globulin 3.8 (1.7-4.1) g/dL Albumin/Globulin Ratio 1.2 (1.0-2.8) Lipase 87 (23-300) U/L U Opiates 300ng/mL cut (Negative) Ur Oxycodone Screen (Negative) Urine Methadone Screen (Negative) Ur Barbiturates Screen (Negative) U Tricyclic Antidepress (Negative) Ur Phencyclidine Scrn (Negative) Ur Amphetamines Screen (Negative) U Methamphetamines Scrn (Negative) Ur MDMA Scrn (Ecstasy) (Negative) U Benzodiazepines Scrn (Negative) Urine Cocaine Screen (Negative) U Marijuana (THC) Screen (Negative) Ethyl Alcohol < 10 ( - 10) mg/dL SARS-CoV-2 (PCR) (Negative) 05/23/22 05/23/22 05/23/22 Range/Units 17:50 17:55 20:15 WBC (4.5-11.0) X10^3/uL RBC (4.0-5.2) X10^6/uL Hgb (12.0-16.0) g/dL Hct (36-46) % MCV (80-100) fL MCH (26-34) PG MCHC (30-36) % RDW (11.6-14.8) % Plt Count (150-400) X10^3/uL Neut % (Auto) (50-75) % Lymph % (Auto) (25-40) % [place] % (Auto) (3-14) % Eos % (Auto) (2-4) % Baso % (Auto) (0-2) % Neut # (Auto) (5963-8413) /uL Lymph # (Auto) (5253-6726) /uL [place] # (Auto) (0-900) /uL Eos # (Auto) (0-450) /uL Baso # (Auto) (0-100) /uL PT (10.1-12.7) SECONDS INR (0.9-1.3) APTT (26-36) SECONDS Sodium (137-145) mmol/L Potassium (3.4-5.1) mmol/L Chloride (98-107) mmol/L Carbon Dioxide (22-32) mmol/L BUN (7-17) mg/dL Creatinine (0.52-1.04) mg/dL Estimated GFR (>60) mL/min BUN/Creatinine Ratio (6-22) Glucose (80-110) mg/dL Lactate 2.6 H 2.4 H (0.7-2.1) mmol/L Calcium (8.4-10.2) mg/dL Total Bilirubin (0.2-1.3) mg/dL AST (14-36) IU/L ALT (<35) IU/L Alkaline Phosphatase (38-126) U/L Total Creatine Kinase (30-135) U/L CK-MB (CK-2) (<2.37) ng/mL CK-MB (CK-2) Rel Index (1.5-5.0) % Troponin I (0.01-0.034) ng/mL Total Protein (6.3-8.2) g/dL Albumin (3.5-5.0) g/dL Globulin (1.7-4.1) g/dL Albumin/Globulin Ratio (1.0-2.8) Lipase (23-300) U/L U Opiates 300ng/mL cut (Negative) Ur Oxycodone Screen (Negative) Urine Methadone Screen (Negative) Ur Barbiturates Screen (Negative) U Tricyclic Antidepress (Negative) Ur Phencyclidine Scrn (Negative) Ur Amphetamines Screen (Negative) U Methamphetamines Scrn (Negative) Ur MDMA Scrn (Ecstasy) (Negative) U Benzodiazepines Scrn (Negative) Urine Cocaine Screen (Negative) U Marijuana (THC) Screen (Negative) Ethyl Alcohol ( - 10) mg/dL SARS-CoV-2 (PCR) Negative (Negative) 05/24/22 Range/Units 04:03 WBC (4.5-11.0) X10^3/uL RBC (4.0-5.2) X10^6/uL Hgb (12.0-16.0) g/dL Hct (36-46) % MCV (80-100) fL MCH (26-34) PG MCHC (30-36) % RDW (11.6-14.8) % Plt Count (150-400) X10^3/uL Neut % (Auto) (50-75) % Lymph % (Auto) (25-40) % [place] % (Auto) (3-14) % Eos % (Auto) (2-4) % Baso % (Auto) (0-2) % Neut # (Auto) (3642-8713) /uL Lymph # (Auto) (1960-9426) /uL [place] # (Auto) (0-900) /uL Eos # (Auto) (0-450) /uL Baso # (Auto) (0-100) /uL PT (10.1-12.7) SECONDS INR (0.9-1.3) APTT (26-36) SECONDS Sodium (137-145) mmol/L Potassium (3.4-5.1) mmol/L Chloride (98-107) mmol/L Carbon Dioxide (22-32) mmol/L BUN (7-17) mg/dL Creatinine (0.52-1.04) mg/dL Estimated GFR (>60) mL/min BUN/Creatinine Ratio (6-22) Glucose (80-110) mg/dL Lactate (0.7-2.1) mmol/L Calcium (8.4-10.2) mg/dL Total Bilirubin (0.2-1.3) mg/dL AST (14-36) IU/L ALT (<35) IU/L Alkaline Phosphatase (38-126) U/L Total Creatine Kinase (30-135) U/L CK-MB (CK-2) (<2.37) ng/mL CK-MB (CK-2) Rel Index (1.5-5.0) % Troponin I (0.01-0.034) ng/mL Total Protein (6.3-8.2) g/dL Albumin (3.5-5.0) g/dL Globulin (1.7-4.1) g/dL Albumin/Globulin Ratio (1.0-2.8) Lipase (23-300) U/L U Opiates 300ng/mL cut Negative (Negative) Ur Oxycodone Screen Negative (Negative) Urine Methadone Screen Negative (Negative) Ur Barbiturates Screen Negative (Negative) U Tricyclic Antidepress Negative (Negative) Ur Phencyclidine Scrn Negative (Negative) Ur Amphetamines Screen Negative (Negative) U Methamphetamines Scrn Negative (Negative) Ur MDMA Scrn (Ecstasy) Negative (Negative) U Benzodiazepines Scrn Negative (Negative) Urine Cocaine Screen Negative (Negative) U Marijuana (THC) Screen Negative (Negative) Ethyl Alcohol ( - 10) mg/dL SARS-CoV-2 (PCR) (Negative) Imaging Data Chest x-ray: Radiologist's Impression: PROCEDURE:? XR CHEST 1V ? INDICATIONS:? hit head ? TECHNIQUE:? One view of the chest was acquired.? ? COMPARISON:? [facility], , CHEST 2 VIEW, 07/04/2008, 11:39. ? FINDINGS:? ? Surgical changes and devices:? Left axillary clips. ? Lungs and pleura:? Mild increased vascularity. ? Mediastinum:? Mediastinal contours appear normal.? Heart size is enlarged. ? Bones and chest wall:? No suspicious bony lesions.? Overlying soft tissues appear unremarkable.? ? IMPRESSION:? Mild increased vascularity suggestive of edema. ? ? Dictated by: Mima Chaves M.D. on 05/23/2022 at 18:29 ? ? Approved by: Mima Chaves M.D. on 05/23/2022 at 18:29?? CT scan - head: Radiologist's Impression: PROCEDURE:? CT HEAD/BRAIN WO CON ? INDICATIONS:? head injury/thinners ? TECHNIQUE:? Noncontrast 4.5 mm thick angled axial sections acquired from the foramen magnum to the vertex, with coronal and sagittal reformats.? For radiation dose reduction, the following was used:? automated exposure control, adjustment of mA and/or kV according to patient size.? ? COMPARISON:? None. ? FINDINGS:? Image quality:? Excellent.? ? CSF spaces:? Basal cisterns are patent.? No extra-axial fluid collections.? The ventricles are symmetric in size and shape.? ? Brain:? There is a small amount of acute intracranial hemorrhage seen involving the left frontal region, which is best demonstrated on coronal reformatted images.? This measures up to 2 mm in thickness and is attributed to subdural hemorrhage. ? No intracranial masses.? There is cerebral volume loss for age, with resultant ventricular and sulcal prominence.? There are periventricular and deep white matter chronic small vessel ischemic changes.? There is intracranial internal carotid artery atherosclerosis.? ? Skull and face:? Soft tissue hematoma can be seen involving the right periorbital and the right anterior temporal region.? No associated calvarial fracture is seen.? Calvarium and visualized facial bones appear intact, without suspicious lesions.? ? Sinuses:? Visualized sinuses and mastoids are clear.? ? ? IMPRESSION:? There is a small amount of acute subdural hemorrhage seen involving the left superior frontal region, which is attributed to a contrecoup injury. ? Right-sided soft tissue hematoma is seen. ? No associated fracture is seen. ? ? ? Note:? Critical finding discussed by telephone with Dr. Mchugh at 4:29 p.m. [place] time on May 23, 2022.? ? ? Dictated by: Jey Mcdowell M.D. on 05/23/2022 at 16:26 ? ? Approved by: Jey Mcdowell M.D. on 05/23/2022 at 16:30?? Repeat scan at 4 hours: FINDINGS:? Image quality:? Excellent.? ? CSF spaces:? Basal cisterns are patent.? There is mild cerebral volume loss, with resultant ventricular and sulcal prominence.? ? Brain:? A small hyperdense subdural hematoma along the left frontal cerebral convexity appears slightly increased in size compared to the prior study, measuring up to 0.5 cm in thickness compared to 0.3 cm previously.? No midline shift.? No intracranial mass.? There are subcortical, periventricular and deep white matter hypodensities consistent with mild chronic small vessel ischemic changes.? The vargas-white matter junction appears preserved. ?There is intracranial internal carotid artery atherosclerosis.? ? Skull and face:? Calvarium and visualized facial bones appear intact, without suspicious lesions.? There is soft tissue swelling of the right frontal scalp and right periorbital region redemonstrated with hyperdense subcutaneous hematomas. ? Sinuses:? Visualized sinuses and mastoids are clear.? ? IMPRESSION:? ? 1. Slight interval increase in size of an acute subdural hematoma along the left frontal cerebral convexity.? No midline shift. ? Findings discussed with Dr. Marie on 05/23/2022 at 9:34 p.m.. ? ? Dictated by: Nicholas Powell M.D. on 05/23/2022 at 21:31 ? ? #3 445am Stable thin acute subdural hematoma on the left side. No significant mass effect Tru Segal MD [facility] Narrative Medical decision making narrative: This an 86-year-old female anticoagulated on warfarin with an INR of 2 who had a ground level fall today this appears to be mechanical, patient has a 1-2 mm some neural without any midline shift that appears to be a contrecoup injury this patient is and edema are on the right. Patient C-spine is negative, no other acute changes are appreciated she does have some baseline dementia appears to be neurologically intact. Was given vitamin K and Kcentra, goals of care were discussed with family they are unsure about code status and level of intervention, images were pushed to [facility] for consultation with Neurosurgery while they continued this discussion with daughter and and patient. Patient's heart rate and blood pressure have elevated but she is due for her evening medications these will be given. I spoke with Neurosurgery at [facility] they recommend repeat head CT in 4-6 hours, holding warfarin for at least 1 week if stable and discussion with primary care about anticoagulation risks versus benefits and patient in her current situation. If increasing in size they asked for recontact. Updated patient, and daughter is her way in to discuss goals of care if they become necessary. Patient signed out to Dr. Marie while awaiting repeat imaging. 10pm repeat image shows slight interval increase 2.5 cm in the subdural hematoma. The images have been pushed [facility] and I am waiting forDr Matta, neurosurgeon to review images and offer suggestions. Patient remains clinically unchanged 11:[address] Because of the slight change, still not big enough that this would require surgery, she does recommend repeating a CT scan in another 4-6 hours. Will notify patient. 340am repeat CT scan suggests no enlargement and possibly decreased size of the small subdural hematoma. At this point with no evidence of further bleeding patient will be discharged safely home. She would continued complaints of needing to void and was found to have over 600 cc in her bladder. A Flores catheter was placed with which she will be discharged. Will ask her to follow- up with her primary care physician. Critical Care Time <Yari Mchugh, DO - Last Filed: 05/24/22 07:10> Critical Care Time Critical Care Time: Yes Total Critical Care Time: 25 Attestation: The high probability of a clinically significant, sudden or life threatening deterioration of the [cardiac, neuro] system(s) required my full and direct attention, intervention and personal management. The aggregate critical care time was [] minutes. This time is in addition to time spent performing reported procedures but includes the following: [x] Data Review and interpretation [x] Patient assessment and monitoring of vital signs [x] Documentation [x] Medication orders and management Discharge Plan Departure Patient Disposition: Home Clinical Impression: Acute subdural hematoma, Elevated INR, Acute urinary retention Instructions: How to Care for Your Flores Catheter -- Female, DI for Subdural Hematoma Activity Restrictions/Additional Instructions: Thank you for coming in today You had a small amount of bleeding inside your skull after your fall,likely related to your Coumadin. The CT scans were reviewed with neurosurgeons at [facility]. The bleeding has stabilized at this time and you are safe for discharge home. You were having difficulty going to the bathroom and we found more than 600 cc of urine in your bladder. A Flores catheter was placed. Often, when your bladder has stretched out this much, it takes a couple of days to shrink back to appropriate size. When you see your primary care doctor please discuss the Flores catheter and it will likely be safe to remove at that time. The recommendation at this time is to not restart your Coumadin. Your risk of falling and bleeding and Coumadin complications at this time outweigh the benefit of the anticoagulation. I would encourage you to schedule an appointment with your primary care doctor within the next week or 2. Please discuss whether or not the Coumadin should be restarted. If you find that you are getting worse or develop any new symptoms, please feel free to return to the emergency department for further evaluation. Prescriptions: No Action warfarin [Coumadin] 5 MG tablet 5 mg PO QDAY Qty: 0 Rx Instructions: 5 mg x 5 days, 2.5 mg x 2 days atorvastatin [Lipitor] 20 MG tablet 20 mg PO QDAY Qty: 0 metoprolol tartrate 50 MG tablet 50 mg PO BID Qty: 0 diltiazem HCl 240 MG capsule,extended release 24hr 240 mg PO QAM Qty: 0 sennosides [Senokot] 8.6 mg Tablet 8.6 mg DAILY valsartan 160 mg tablet 160 mg PO DAILY acetaminophen 325 mg Tablet 650 mg PO TID levothyroxine 125 mcg tablet 125 mcg PO QAM calcium 600 mg Capsule 600 mg PO BID loratadine [Claritin] 10 mg Tablet 10 mg PO DAILY vitamin O46-aozcq acid 1,000-400 mcg Lozenge 1 shira SUBLINGUAL DAILY Referrals: Guillermo Nunes MD [Primary Care Provider] - Visit Report Forms: Patient Portal/API
[2022-05-23 18:05] LABS: Add Manual Diff / Slide Review NO; Basophils Absolute Auto 0 /uL (0-100); Basophils Percent Auto 0.3 % (0-2); Eosinophils Absolute Auto 100 /uL (0-450); Eosinophils Percent Auto 1.1 % (2-4); Hematocrit 42.1 % (36-46); Hemoglobin 14.1 g/dL (12.0-16.0); Lymphocytes Absolute Auto 1500 /uL (1100-4500); Lymphocytes Percent Auto 11.6 % (25-40); Mean Corpuscular HGB Conc 33.5 % (30-36); Mean Corpuscular Hemoglobin 33.3 PG (26-34); Mean Corpuscular Volume 99.3 fL (80-100); Monocytes Absolute Auto 1000 /uL (0-900); Monocytes Percent Auto 7.3 % (3-14); Neutrophils Absolute Auto 10500 /uL (1500-7000); Neutrophils Percent Auto 79.7 % (50-75); Platelet Count 226 X10^3/uL (150-400); Red Blood Cell Count 4.24 X10^6/uL (4.0-5.2); Red Cell Distribution Width 15.2 % (11.6-14.8); White Blood Cell Count 13.2 X10^3/uL (4.5-11.0)
[2022-05-23 18:13] LABS: Prothrombin Time 22.7 SECONDS (10.1-12.7)
[2022-05-23 18:15] LABS: PTT Partial Thromboplastin Tim 37 SECONDS (26-36)
[2022-05-23 18:17] LABS: Alanine Aminotransferase 26 IU/L (<35); Albumin 4.7 g/dL (3.5-5.0); Albumin Globulin Ratio 1.2 (1.0-2.8); Alkaline Phosphatase 100 U/L (38-126); Aspartate Aminotransferase 33 IU/L (14-36); BUN Creatinine Ratio 18.5 (6-22); Bilirubin Total 0.7 mg/dL (0.2-1.3); Blood Urea Nitrogen 12 mg/dL (7-17); Calcium 9.7 mg/dL (8.4-10.2); Carbon Dioxide 26 mmol/L (22-32); Chloride 93 mmol/L (98-107); Creatine Kinase 200 U/L (30-135); Estimated Glomerular Filt Rate > 60 mL/min (>60); Ethanol (ETOH) < 10 mg/dL; Globulin 3.8 g/dL (1.7-4.1); Glucose 157 mg/dL (80-110); HEMOLYSIS 17 (0-50); Lipase 87 U/L (23-300); Potassium 4.1 mmol/L (3.4-5.1); Sodium 133 mmol/L (137-145); Total Protein 8.5 g/dL (6.3-8.2)
[2022-05-23 18:23] LABS: COVID19 -Nasal RAPID Negative (Negative)
[2022-05-23 18:28] LABS: Troponin I < 0.012 ng/mL (0.01-0.034)
[2022-05-23 18:32] LABS: CKMB % Relative Index 2.2 % (1.5-5.0); Creatine Kinase MB 4.48 ng/mL (<2.37)
[2022-05-23] MEDS: PROTHROMBIN CPLX(PCC)4FACT 2,000 UNIT in ISOOSMOTIC VEHICLE 0 ML 653.17 UNIT IV (18:41)
[2022-05-23] MEDS: PHYTONADIONE (VIT K1) 10 MG in SODIUM CHLORIDE 0.9% 100 ML 202 MG IV (18:49)
[2022-05-23 19:10] LABS: Lactate (Lactic Acid) 2.6 mmol/L (0.7-2.1)
[2022-05-23] MEDS: TET,DIPH,PERTUSS(ACELL),VAC/PF 0.5 ML SYRINGE IM (19:35)
[2022-05-23 20:01] LABS: Reflexed Lactate in 2 Hours Y
[2022-05-23] MEDS: METOPROLOL IR 25 MG TABLET 50 MG PO (20:13)
[2022-05-23 20:46] LABS: Lactate 2HR (Lactic Acid Rflx) 2.4 mmol/L (0.7-2.1)
--- NOTE | 2022-05-23 21:00 | DI.CT.S_ITS ---
PROCEDURE: CT HEAD/BRAIN WO CON INDICATIONS: repeat head CT, SDH TECHNIQUE: Noncontrast 4.5 mm thick angled axial sections acquired from the foramen magnum to the vertex, with coronal and sagittal reformats. For radiation dose reduction, the following was used: automated exposure control, adjustment of mA and/or kV according to patient size. COMPARISON: [facility], CT, CT HEAD/BRAIN WO CON, 05/23/2022, 17:01. FINDINGS: Image quality: Excellent. CSF spaces: Basal cisterns are patent. There is mild cerebral volume loss, with resultant ventricular and sulcal prominence. Brain: A small hyperdense subdural hematoma along the left frontal cerebral convexity appears slightly increased in size compared to the prior study, measuring up to 0.5 cm in thickness compared to 0.3 cm previously. No midline shift. No intracranial mass. There are subcortical, periventricular and deep white matter hypodensities consistent with mild chronic small vessel ischemic changes. The vargas-white matter junction appears preserved. There is intracranial internal carotid artery atherosclerosis. Skull and face: Calvarium and visualized facial bones appear intact, without suspicious lesions. There is soft tissue swelling of the right frontal scalp and right periorbital region redemonstrated with hyperdense subcutaneous hematomas. Sinuses: Visualized sinuses and mastoids are clear. IMPRESSION: 1. Slight interval increase in size of an acute subdural hematoma along the left frontal cerebral convexity. No midline shift. Findings discussed with Dr. Marie on 05/23/2022 at 9:34 p.m.. Dictated by: Nicholas Powell M.D. on 05/23/2022 at 21:31 Approved by: Nicholas Powell M.D. on 05/23/2022 at 21:39
[2022-05-24] VITALS: BP 155/87; PULSE 102; RESP 33; O2SAT 96
[2022-05-24 00:30] VITALS: BP 146/96; PULSE 107; RESP 28; O2SAT 95
[2022-05-24 01:00] VITALS: BP 166/88; PULSE 109; RESP 28; O2SAT 97
--- NOTE | 2022-05-24 02:13 | PC.NURSE ---
0200 Patient attempting to crawl out of bed, not following directions. Not following directions is new for patient. She is unable to tell this RN where she is or what year it is. She is not tolerating continuous cardiac leads, BP cuff and O2 probe, repeatedly removing. She is becoming demanding and appears confused. at the bedside agrees that patient appears confused. Dr. Marie notified of change 0215 Patient continues to climb out of bed despite repositioning by staff. Patient not following directions or conversation, forgetting previous conversations. She continues to appear confused. 0332 Patient alert to person. She is not tolerating continuos telemetry, BP cuff or O2 probe. remains at bedside. Awaiting CT results
--- NOTE | 2022-05-24 03:00 | DI.CT.S_ITS ---
PROCEDURE: CT HEAD/BRAIN WO CON INDICATIONS: serial CT for bleed TECHNIQUE: Noncontrast 4.5 mm thick angled axial sections acquired from the foramen magnum to the vertex, with coronal and sagittal reformats. For radiation dose reduction, the following was used: automated exposure control, adjustment of mA and/or kV according to patient size. COMPARISON: [facility], CT, CT HEAD/BRAIN WO CON, 05/23/2022, 20:57. FINDINGS: Image quality: Excellent. CSF spaces: Basal cisterns are patent. No extra-axial fluid collections. Ventricles are normal in size and shape. Brain: Left parietal subdural hematoma now measures 4.5 mm best depicted on the coronal sequence. No parenchymal hemorrhage or mass effect. No midline shift. Atrophy and chronic ischemic change present. Skull and face: Calvarium and visualized facial bones are intact, without suspicious lesions. Right frontal scalp hematoma remains unchanged Sinuses: Visualized sinuses and mastoids are clear. IMPRESSION: Stable thin left parietal subdural hematoma. Stable right frontal scalp hematoma Note: Final report is concordant with preliminary interpretation by [employer] Approved by: Chaz Woodard M.D. on 05/24/2022 at 6:23
--- NOTE | 2022-05-24 04:11 | PC.NURSE ---
Patient reporting she has to urinate. Placed on bed munoz multiple times and she is two person assist to bedside commode. Patient unable to urinate. Bladder scan shows 400cc urine in bladder. Patient becoming more agitated, stating she has to urinate however is unable to. Patient straight cathed with over 600cc urine output. Patient tolerated well and appears more relaxed.
[2022-05-24 04:28] LABS: UR Morphine/Opiate cutoff 300 Negative (Negative); Ur Creatinine 20 (Normal); Ur Specific Gravity 1.025 (Normal); Urine Amphetamines Negative (Negative); Urine Barbiturates Negative (Negative); Urine Benzodiazepines Negative (Negative); Urine Cocaine Negative (Negative); Urine MDMA Negative (Negative); Urine Methadone Negative (Negative); Urine Methamphetamines Negative (Negative); Urine Oxycodone Negative (Negative); Urine Phencyclidine Negative (Negative); Urine Tetrahydrocannabinol Negative (Negative); Urine Tricyclic Antidepressant Negative (Negative); Urine pH 5 (Normal)
[2022-05-24 04:39] VITALS: BP 165/98; PULSE 113; RESP 16; O2SAT 97
[2022-05-24 05:26] VITALS: BP 142/85; PULSE 110; RESP 20; O2SAT 97
== END 2022-05-24 05:27 | disposition home or self-care (01) ==
PROVIDERS: Emergency Provider Emergency Medicine; PCP Internal Medicine
DX: S06.5X0A Traumatic subdural hemorrhage without loss of consciousness, initial encounter (principal); R79.1 Abnormal coagulation profile; W18.30XA Fall on same level, unspecified, initial encounter; R33.8 Other retention of urine; F03.90 Unspecified dementia, unspecified severity, without behavioral disturbance, psychotic disturbance, mood disturbance, and anxiety; I48.91 Unspecified atrial fibrillation; Z79.01 Long term (current) use of anticoagulants; Z20.822 Contact with and (suspected) exposure to COVID-19; Z23 Encounter for immunization
CPT/HCPCS: 36415; 70450; 71045; 72125; 80053; 80305; 80320; 82550; 82553; 83605; 83690; 84484; 85025; 85610; 85730; 87635; 90471; 93005; 93010; 96365; 99285; C9803; 90715; J3430; J7168

== ENCOUNTER → 2022-06-09 12:08 | Outpatient (CLI) | payer MEDICARE, SELFPAY ==
--- NOTE | 2022-06-09 12:09 | DI.MG.S_ITS ---
BILATERAL DIGITAL SCREENING MAMMOGRAM 3D/2D WITH CAD: 06/09/2022 CLINICAL: Routine screening. Personal history of left breast cancer. Family history of breast cancer. Comparison is made to exams dated: 06/05/2021 mammogram, 05/17/2020 mammogram, 05/16/2019 mammogram, and 05/14/2018 mammogram - [facility]. Both breasts are heterogeneously dense, which may obscure small masses (category c / 51-75% glandular tissue). Current study was also evaluated with a Computer Aided Detection (CAD) system. There are benign calcifications in both breasts. There also are benign vascular calcifications in both breasts. Additionally, there are benign post operative findings in the left breast. No significant masses, calcifications, or other findings are seen in either breast. There has been no significant interval change. IMPRESSION: BENIGN There is no mammographic evidence of malignancy. A 1 year screening mammogram is recommended. This exam was interpreted at Station ID: [id number]. NOTE: For mammograms, a report in lay terms will be sent to the patient. Approximately 15% of breast malignancies will not be visualized mammographically. In the management of a palpable breast mass, a negative mammogram must not discourage biopsy of a clinically suspicious lesion. Electronically Signed By: Italo brewer/hanny:06/09/2022 17:19:02 copy to: Miguel Angel Phelps letter sent: Normal Exam ACR BI-RADS Category 2: Benign Finding(s) 3342F
== END ==
PROVIDERS: PCP Internal Medicine; Referring Provider Internal Medicine Hematology & Oncology; Visit Provider Internal Medicine Hematology & Oncology
DX: Z12.31 Encounter for screening mammogram for malignant neoplasm of breast (principal); Z85.3 Personal history of malignant neoplasm of breast; Z80.3 Family history of malignant neoplasm of breast
CPT/HCPCS: 77063; 77067

== ENCOUNTER → 2022-11-07 08:12 | Outpatient (CLI) | payer MEDICARE, SELFPAY | PROVIDERS: PCP Internal Medicine; Referring Provider Internal Medicine; Visit Provider Nurse Practitioner Family | DX: L98.9 Disorder of the skin and subcutaneous tissue, unspecified (principal) | CPT/HCPCS: 99202; 99213 ==

== ENCOUNTER → 2023-03-20 10:55 | Outpatient (CLI) | payer MEDICARE, SELFPAY ==
[2023-03-20 12:30] LABS: Hematocrit 41.3 % (36-46); Mean Corpuscular HGB Conc 33.9 % (30-36); Mean Corpuscular Hemoglobin 32.6 PG (26-34); Mean Corpuscular Volume 96.1 fL (80-100); Platelet Count 214 X10^3/uL (150-400); Red Cell Distribution Width 14.4 % (11.6-14.8); White Blood Cell Count 12.6 X10^3/uL (4.5-11.0)
[2023-03-20 12:47] LABS: Hemoglobin A1C% w Est Avg Glu 5.6 % (4.0-6.0)
[2023-03-20 13:05] LABS: Alanine Aminotransferase 21 IU/L (<35); Albumin 4.2 g/dL (3.5-5.0); Albumin Globulin Ratio 1.5 (1.0-2.8); Alkaline Phosphatase 67 U/L (38-126); Aspartate Aminotransferase 27 IU/L (14-36); Blood Urea Nitrogen 15 mg/dL (7-17); Calcium 10.1 mg/dL (8.4-10.2); Carbon Dioxide 34 mmol/L (22-32); Chloride 85 mmol/L (98-107); Cholesterol 156 mg/dL (140-199); Estimated Glomerular Filt Rate > 60 mL/min (>60); Globulin 2.8 g/dL (1.7-4.1); Glucose 108 mg/dL (80-110); HDL Cholesterol 51 mg/dL (40-60); HEMOLYSIS < 15 (0-50); LDL Cholesterol Calculated 74 mg/dL (<100); Potassium 4.1 mmol/L (3.4-5.1); Sodium 128 mmol/L (137-145); Triglycerides 153 mg/dL (35-150)
[2023-03-20 13:11] LABS: NT-proBNP (BNP-Adult 18+) 1170 pg/mL (<450)
[2023-03-20 13:31] LABS: TSH w/ Reflex to FT4 2.68 uIU/mL (0.47-4.68)
[2023-03-20 13:52] LABS: Vitamin B12 941 pg/mL (239-931)
== END ==
PROVIDERS: PCP Internal Medicine; Referring Provider Internal Medicine; Visit Provider Internal Medicine
DX: E03.9 Hypothyroidism, unspecified (principal); I10 Essential (primary) hypertension; R73.01 Impaired fasting glucose; I35.0 Nonrheumatic aortic (valve) stenosis; E53.8 Deficiency of other specified B group vitamins; E78.2 Mixed hyperlipidemia
CPT/HCPCS: 36415; 80053; 80061; 82607; 83036; 83880; 84443; 85027

== ENCOUNTER → 2023-04-09 10:30 | Outpatient (CLI) | payer MEDICARE, SELFPAY ==
--- NOTE | 2023-04-09 10:31 | DI.ECHO.S_ITS ---
[facility]---------+ [facility] +---------+ : : [address] : : : : [id number] : : : : Phone: [phone]+ Echocardiogram Report + + :Name: SAMUEL VERMA Study Date: 04/09/2023 Height: 67 in : :[facility] ReadingLocation: Weight: 210 lb : : Gender: Female BSA: 2.1 m2 : :: 1935 Age: 87 yrs BP: 149/113 mmHg: :Reason For Study: Aortic Valve Stenosis : :Ordering Physician: JUAN C, : :CARRIE Performed By: Kayleigh Livia : :Referring: CARRIE PHELPS : + + Interpretation Summary I recommended that the patient go to the ED. They refused and decided to go home. I asked if they would provide their phone number in case you wanted to call them. Her is Guillermo and can be reached at [phone]. The study quality was technically difficult. The patient was in atrial fibrillation with heart rates between 110-154 bpm during the exam. The ejection fraction is estimated to be 60-65%. Diastolic function could not be accurately assessed due to atrial fibrillation. Grossly the right ventricle appears dilated with preserved systolic function. There is severe biatrial enlargement. There is mild mitral regurgitation. There is severely reduced leaflet mobility. Severity of aortic stenosis cannot be assessed due to limited Doppler signal across the aortic valve in the setting of A-fib with RVR. There is mild tricuspid regurgitation. The right ventricular systolic pressure is estimated to be at least 47 mmHg based on an estimated right atrial pressure of 8 mm Hg. Compared to the prior study dated 12/06/2021, the EF appears similar however comparison of AV gradients is not able to be performed. Result discussed with Dr. Phelps. Procedure: A two-dimensional transthoracic echocardiogram with color flow and Doppler was performed. The study quality was technically difficult. Comparison is made with the echocardiogram of 12/06/2021. The patient was in atrial fibrillation with heart rates between 110-154 bpm during the exam. Left Ventricle: The left ventricle is normal in size. The ejection fraction is estimated to be 60-65%. Diastolic function could not be accurately assessed due to atrial fibrillation. Right Ventricle: The right ventricle is not well visualized. Grossly the right ventricle appears dilated with preserved systolic function. Atria: There is severe biatrial enlargement. There is no Doppler evidence for an interatrial shunt. Mitral Valve: There is moderate mitral annular calcification. The mitral valve leaflets are mildly calcified. There is no mitral valve stenosis. There is mild mitral regurgitation. Aortic Valve: The aortic valve is heavily calcified. There is severely reduced leaflet mobility. Severity of aortic stenosis cannot be assessed due to limited Doppler signal across the aortic valve in the setting of A-fib with RVR. No aortic regurgitation is present. Tricuspid Valve: The tricuspid valve is normal. There is no tricuspid stenosis. There is mild tricuspid regurgitation. The right ventricular systolic pressure is estimated to be at least 47 mmHg based on an estimated right atrial pressure of 8 mm Hg. Pulmonic Valve: The pulmonic valve is not well visualized. There is no pulmonic valvular stenosis. There is trace pulmonic regurgitation. Great Vessels: The aortic root is normal size. The ascending aorta is at the upper limits of normal in size. The pulmonary artery is normal size. The IVC is of normal diameter and collapses less than 50% with a sniff. This suggests a right atrial pressure of 8 mm Hg. Pericardium/ Pleura There is no pericardial effusion. There is no pleural effusion. MMode/2D Measurements & Calculations LVOT diam: 2.0 cm LA A2 area: 27.8 cm2 Ao root diam: 2.8 cm LA A4 area: 27.6 cm2 asc Aorta Diam: 3.8 cm LA length (vol): 6.6 cm LA vol: 98.8 ml LA vol index: 47.9 ml/m2 RA long axis: 6.5 cm RVD1 (basal): 3.7 cm RA area: 21.0 cm2 RA vol: 57.6 ml RA : 27.9 ml/m2 TAPSE_phl: 1.5 cm Doppler Measurements & Calculations TR max michaelle: 311.0 cm/sec TR max P.7 mmHg Reading Physician:12:50 PM
== END ==
PROVIDERS: PCP Internal Medicine; Referring Provider Internal Medicine; Visit Provider Internal Medicine
DX: I35.0 Nonrheumatic aortic (valve) stenosis (principal); I48.91 Unspecified atrial fibrillation; I51.7 Cardiomegaly; I34.0 Nonrheumatic mitral (valve) insufficiency; I07.1 Rheumatic tricuspid insufficiency
CPT/HCPCS: 93306

== ENCOUNTER → 2023-04-20 11:52 | Outpatient (CLI) | payer MEDICARE, SELFPAY ==
[2023-04-20 13:03] LABS: BUN Creatinine Ratio 24.6 (6-22); Blood Urea Nitrogen 14 mg/dL (7-17); Calcium 9.9 mg/dL (8.4-10.2); Carbon Dioxide 27 mmol/L (22-32); Chloride 91 mmol/L (98-107); Estimated Glomerular Filt Rate > 60 mL/min (>60); Glucose 118 mg/dL (80-110); HEMOLYSIS < 15 (0-50); Potassium 4.7 mmol/L (3.4-5.1); Sodium 126 mmol/L (137-145)
== END ==
PROVIDERS: PCP Internal Medicine; Referring Provider Internal Medicine; Visit Provider Internal Medicine
DX: I35.0 Nonrheumatic aortic (valve) stenosis (principal); I83.019 Varicose veins of right lower extremity with ulcer of unspecified site; L97.919 Non-pressure chronic ulcer of unspecified part of right lower leg with unspecified severity
CPT/HCPCS: 36415; 80048

== ENCOUNTER → 2023-04-22 14:21 | Outpatient (CLI) | payer MEDICARE, SELFPAY | PROVIDERS: PCP Internal Medicine; Referring Provider Internal Medicine; Visit Provider Surgery | DX: G57.83 Other specified mononeuropathies of bilateral lower limbs (principal); L97.812 Non-pressure chronic ulcer of other part of right lower leg with fat layer exposed; R60.0 Localized edema; L95.0 Livedoid vasculitis; I96 Gangrene, not elsewhere classified | CPT/HCPCS: 11042; 87070; 87075; 87077; 87205; 99214 ==

== ENCOUNTER → 2023-04-27 14:40 | Outpatient (CLI) | payer MEDICARE, SELFPAY ==
--- NOTE | 2023-04-27 14:40 | DI.US.S_ITS ---
PROCEDURE: US ARTERIAL DUPLEX LE BI INDICATIONS: WOUNDS TO RIGHT LEG TECHNIQUE: Color and pulse Doppler interrogation was performed of both lower extremity arterial systems, with image documentation. Technically challenging exam due to patient's body habitus, cooperation and positioning. COMPARISON: None. FINDINGS: Right lower extremity: Common femoral artery: 42.7 cm/sec, with triphasic flow. Deep femoral artery: 30.9 cm/sec, with biphasic flow. Proximal superficial femoral artery: 57.8 cm/sec, with triphasic flow. Mid superficial femoral artery: 44 cm/sec, with triphasic flow. Distal superficial femoral artery: Not seen Popliteal artery: Not seen. Posterior tibial artery: Not seen Anterior tibial artery/dorsalis pedis: Not seen Ford-scale imaging description: Not seen Left lower extremity: Common femoral artery: 51.7 cm/sec, with triphasic flow. Deep femoral artery: Not seen Proximal superficial femoral artery: 71.3 cm/sec, with triphasic flow. Mid superficial femoral artery: 52.1 cm/sec, with triphasic flow. Distal superficial femoral artery: Not seen Popliteal artery: Not seen Posterior tibial artery: Not seen Anterior tibial artery/dorsalis pedis: Not seen Ford-scale imaging description: Not seen IMPRESSION: Markedly limited exam secondary to patient's body habitus, cooperation and positioning. 1. Right lower extremity vasculature where imaged is multiphasic; however, the majority of the arterial vasculature is not imaged to evaluate for a hemodynamically significant stenosis. 2. Left lower extremity vasculature where imaged is multiphasic; however, the majority of the arterial vasculature is not imaged to evaluate for a hemodynamically significant stenosis. Dictated by: Marilyn Daily M.D. on 04/27/2023 at 15:59 Approved by: Marilyn Daily M.D. on 04/27/2023 at 16:09
== END ==
PROVIDERS: PCP Internal Medicine; Referring Provider Surgery; Visit Provider Surgery
DX: I83.019 Varicose veins of right lower extremity with ulcer of unspecified site (principal); L97.919 Non-pressure chronic ulcer of unspecified part of right lower leg with unspecified severity
CPT/HCPCS: 93925

== ENCOUNTER → 2023-04-28 14:52 | Outpatient (CLI) | payer MEDICARE, SELFPAY | PROVIDERS: PCP Internal Medicine; Referring Provider Internal Medicine; Visit Provider Surgery | DX: I87.2 Venous insufficiency (chronic) (peripheral) (principal); L97.822 Non-pressure chronic ulcer of other part of left lower leg with fat layer exposed; G57.83 Other specified mononeuropathies of bilateral lower limbs; I96 Gangrene, not elsewhere classified; R60.0 Localized edema | CPT/HCPCS: 11042 ==

== ENCOUNTER → 2023-04-30 09:24 | Outpatient (CLI) | payer MEDICARE, SELFPAY ==
--- NOTE | 2023-04-30 09:25 | DI.ECHO.S_ITS ---
[place] [facility] +---------+ : : [address] : : : : [id number] : : : : Phone: [phone]+ Echocardiogram Report + + :Name: SAMUEL VERMA Study Date: 04/30/2023 Height: 68 in : :[facility] ReadingLocation: Weight: 210 lb : : Gender: Female BSA: 2.1 m2 : :: 1935 Age: 87 yrs BP: 138/94 mmHg: :Reason For Study: Aortic Valve Stenosis : :Ordering Physician: JUAN C, : :CARRIE Performed By: Kayleigh Bhakta : :Referring: CARRIE IRIZARRY : + + Interpretation Summary A two-dimensional transthoracic echocardiogram with color flow and Doppler was performed in limited views only. The patient was in atrial fibrillation with rapid ventricular response during the exam with a heart rate exceeding 100 bpm. LV size grossly normal. Left ventricular ejection fraction is estimated to be 70 +/- 5%. The aortic valve is heavily calcified. There is severely reduced leaflet mobility. The peak aortic velocity is 2.65 m/sec. The aortic valve mean gradient is 15 mmHg. The calculated aortic valve area is 0.69 cm2. sev ratio: 0.24 NIMISHA indexed to BSA (cm^2/m^2): 0.33 SV(LVOT): 34.3 ml, 16.3 mL/mA?. Consider paradoxically low gradient severe aortic stenosis due to low stroke-volume in the setting of A-fib. Procedure: A two-dimensional transthoracic echocardiogram with color flow and Doppler was performed in limited views only. The study quality was technically difficult. The patient was in atrial fibrillation with rapid ventricular response during the exam with a heart rate exceeding 100 bpm. Left Ventricle: The left ventricle is grossly normal size. Left ventricular ejection fraction is estimated to be 70 +/- 5%. There are no focal wall motion abnormalities. Aortic Valve: The aortic valve is heavily calcified. There is severely reduced leaflet mobility. The peak aortic velocity is 2.65 m/sec. The aortic valve mean gradient is 15 mmHg. The calculated aortic valve area is 0.69 cm2. Great Vessels: The IVC is of normal diameter and collapses less than 50% with a sniff. This suggests a right atrial pressure of 8 mm Hg. Pericardium/ Pleura There is no pericardial effusion. MMode/2D Measurements & Calculations LVOT diam: 1.9 cm Ao root diam: 3.0 cm Doppler Measurements & Calculations Ao V2 max: 258.2 cm/sec LVOT Max Oscar: 54.2 cm/sec Ao V2 mean: 173.3 cm/sec LV V1 max P.2 mmHg Ao max P.7 mmHg LV V1 VTI: 12.1 cm Ao mean P.8 mmHg NIMISHA(I,D): 0.69 cm2 Ao V2 VTI: 50.0 cm NIMISHA(V,D): 0.59 cm2 sev ratio: 0.24 NIMISHA indexed to BSA (cm^2/m^2): 0.33 SV(LVOT): 34.3 ml Reading Physician:04:32 PM
== END ==
PROVIDERS: PCP Internal Medicine; Referring Provider Internal Medicine; Visit Provider Internal Medicine
DX: I35.0 Nonrheumatic aortic (valve) stenosis (principal); I48.91 Unspecified atrial fibrillation; I70.0 Atherosclerosis of aorta
CPT/HCPCS: 93307

== ENCOUNTER → 2023-04-30 14:32 | Outpatient (CLI) | payer MEDICARE, SELFPAY | PROVIDERS: PCP Internal Medicine; Referring Provider Internal Medicine; Visit Provider Surgery | DX: I35.0 Nonrheumatic aortic (valve) stenosis (principal); I48.91 Unspecified atrial fibrillation; I70.0 Atherosclerosis of aorta; I87.2 Venous insufficiency (chronic) (peripheral); L97.812 Non-pressure chronic ulcer of other part of right lower leg with fat layer exposed; R60.0 Localized edema | CPT/HCPCS: 29581; 93307 ==

== ENCOUNTER → 2023-05-06 13:57 | Outpatient (CLI) | payer MEDICARE, SELFPAY | PROVIDERS: PCP Internal Medicine; Referring Provider Internal Medicine; Visit Provider Surgery | DX: I87.2 Venous insufficiency (chronic) (peripheral) (principal); L97.812 Non-pressure chronic ulcer of other part of right lower leg with fat layer exposed; R60.0 Localized edema; I73.9 Peripheral vascular disease, unspecified | CPT/HCPCS: 11042 ==

== ENCOUNTER → 2023-05-11 14:41 | Outpatient (CLI) | payer MEDICARE, SELFPAY | PROVIDERS: PCP Internal Medicine; Referring Provider Internal Medicine; Visit Provider Surgery | DX: I87.2 Venous insufficiency (chronic) (peripheral) (principal); L97.812 Non-pressure chronic ulcer of other part of right lower leg with fat layer exposed; R60.0 Localized edema; G62.9 Polyneuropathy, unspecified; E78.2 Mixed hyperlipidemia; I10 Essential (primary) hypertension; I48.91 Unspecified atrial fibrillation | CPT/HCPCS: 11042 ==

== ENCOUNTER → 2023-05-19 15:05 | Outpatient (CLI) | payer MEDICARE, SELFPAY | PROVIDERS: PCP Internal Medicine; Referring Provider Internal Medicine; Visit Provider Surgery | DX: I87.2 Venous insufficiency (chronic) (peripheral) (principal); L97.812 Non-pressure chronic ulcer of other part of right lower leg with fat layer exposed; L97.811 Non-pressure chronic ulcer of other part of right lower leg limited to breakdown of skin; R60.0 Localized edema; I48.91 Unspecified atrial fibrillation; I10 Essential (primary) hypertension | CPT/HCPCS: 11042 ==

== ENCOUNTER → 2023-05-25 11:40 | Outpatient (CLI) | payer MEDICARE, SELFPAY | PROVIDERS: PCP Internal Medicine; Referring Provider Internal Medicine; Visit Provider Surgery | DX: I87.2 Venous insufficiency (chronic) (peripheral) (principal); R60.0 Localized edema; I48.91 Unspecified atrial fibrillation; I10 Essential (primary) hypertension; L97.812 Non-pressure chronic ulcer of other part of right lower leg with fat layer exposed | CPT/HCPCS: 29581; 99213 ==

== ENCOUNTER → 2023-06-02 09:54 | Outpatient (CLI) | payer MEDICARE, SELFPAY | PROVIDERS: PCP Internal Medicine; Referring Provider Internal Medicine; Visit Provider Surgery | DX: L97.212 Non-pressure chronic ulcer of right calf with fat layer exposed (principal); I87.2 Venous insufficiency (chronic) (peripheral); R60.0 Localized edema | CPT/HCPCS: 99213 ==

== ENCOUNTER → 2023-07-30 09:54 | Outpatient (CLI) | payer MEDICARE, SELFPAY | LOC: WC 10:03 | PROVIDERS: PCP Internal Medicine; Referring Provider Internal Medicine; Visit Provider Surgery | DX: L97.812 Non-pressure chronic ulcer of other part of right lower leg with fat layer exposed (principal); I87.2 Venous insufficiency (chronic) (peripheral); R60.0 Localized edema; I89.0 Lymphedema, not elsewhere classified; M62.81 Muscle weakness (generalized); I10 Essential (primary) hypertension; I48.91 Unspecified atrial fibrillation; Z87.891 Personal history of nicotine dependence; G62.9 Polyneuropathy, unspecified | CPT/HCPCS: 29581; 99213; 99214 ==

== ENCOUNTER → 2023-08-03 09:53 | Outpatient (CLI) | payer MEDICARE, SELFPAY | LOC: WC 10:01 | PROVIDERS: PCP Internal Medicine; Referring Provider Internal Medicine; Visit Provider Surgery | DX: L97.812 Non-pressure chronic ulcer of other part of right lower leg with fat layer exposed (principal); I87.2 Venous insufficiency (chronic) (peripheral); R60.0 Localized edema; I10 Essential (primary) hypertension; G62.9 Polyneuropathy, unspecified; I48.91 Unspecified atrial fibrillation; I89.0 Lymphedema, not elsewhere classified | CPT/HCPCS: 29581; 99213 ==

== ENCOUNTER → 2023-08-10 11:13 | Outpatient (CLI) | payer MEDICARE, SELFPAY | LOC: WC 11:13 | PROVIDERS: PCP Internal Medicine; Referring Provider Internal Medicine; Visit Provider Surgery | DX: I87.2 Venous insufficiency (chronic) (peripheral) (principal); I89.0 Lymphedema, not elsewhere classified; G60.9 Hereditary and idiopathic neuropathy, unspecified | CPT/HCPCS: 29581; 99213 ==

== ENCOUNTER → 2023-08-17 10:54 | Outpatient (CLI) | payer MEDICARE, SELFPAY | PROVIDERS: PCP Internal Medicine; Referring Provider Internal Medicine; Visit Provider Surgery | DX: I89.0 Lymphedema, not elsewhere classified (principal); G62.9 Polyneuropathy, unspecified; I10 Essential (primary) hypertension; I48.91 Unspecified atrial fibrillation; Z87.2 Personal history of diseases of the skin and subcutaneous tissue | CPT/HCPCS: 99212; 99213 ==

== ENCOUNTER → 2023-12-10 09:51 | Outpatient (CLI) | payer MEDICARE, SELFPAY | LOC: WC 09:52 | PROVIDERS: PCP Internal Medicine; Referring Provider Internal Medicine; Visit Provider Surgery | DX: I89.0 Lymphedema, not elsewhere classified (principal); I87.2 Venous insufficiency (chronic) (peripheral); I10 Essential (primary) hypertension; M62.81 Muscle weakness (generalized); G62.9 Polyneuropathy, unspecified | CPT/HCPCS: 99212; 99213 ==

== ENCOUNTER 2024-01-06 13:26 | Inpatient (IN) | payer MEDICARE, SELFPAY ==
[2024-01-06] VITALS (38 sets, daily range): BP systolic 72–197; BP diastolic 47–101; PULSE 86–126; RESP 16–31; TEMP 36.3–36.6; O2SAT 91–97; BMI 31.4
--- NOTE | 2024-01-06 | DI.RAD.S_ITS ---
PROCEDURE: XR CALCANEOUS LT MIN 2V INDICATIONS: PAIN TECHNIQUE: Two views of the calcaneus were acquired. COMPARISON: None. FINDINGS: Bones: No fractures or dislocations. No suspicious bony lesions. Soft tissues: No suspicious calcifications. Achilles tendon appears normal. IMPRESSION: No acute bony abnormality. Multiple small vessel contiguous calcifications, consistent with longstanding diabetes or possibly underlying metabolic calcium regulation disease. Dictated by: Marcel Joshi M.D. on 01/06/2024 at 15:03 Approved by: Marcel Joshi M.D. on 01/06/2024 at 15:08
--- NOTE | 2024-01-06 13:42 | EKG_ITS ---
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 Electronically Signed On 01-06-2024 15:06:56 PDT by Johnnie Nuñez
--- NOTE | 2024-01-06 13:44 | PC.NURSE ---
EKG given to provider Cindy. He is made aware of her 72/47 blood pressure. No verbal orders at this time.
[2024-01-06] MEDS: SODIUM CHLORIDE 0.9% 1,000 ML 1000 ML IV (13:51)
[2024-01-06 13:55] LABS: Add Manual Diff / Slide Review NO; Basophils Absolute Auto 100 /uL (0-100); Basophils Percent Auto 0.4 % (0-2); Eosinophils Absolute Auto 200 /uL (0-450); Eosinophils Percent Auto 1.3 % (2-4); Hematocrit 39.3 % (36-46); Lymphocytes Absolute Auto 1600 /uL (1100-4500); Lymphocytes Percent Auto 11.1 % (25-40); Mean Corpuscular HGB Conc 33.2 % (30-36); Mean Corpuscular Hemoglobin 30.5 PG (26-34); Mean Corpuscular Volume 91.7 fL (80-100); Monocytes Absolute Auto 1100 /uL (0-900); Monocytes Percent Auto 7.7 % (3-14); Neutrophils Absolute Auto 11600 /uL (1500-7000); Neutrophils Percent Auto 79.5 % (50-75); Platelet Count 266 X10^3/uL (150-400); Red Blood Cell Count 4.28 X10^6/uL (4.0-5.2); Red Cell Distribution Width 14.3 % (11.6-14.8); White Blood Cell Count 14.6 X10^3/uL (4.5-11.0)
--- NOTE | 2024-01-06 13:58 | DI.RAD.S_ITS ---
PROCEDURE: XR HIP W PEL IF DONE LT 2V INDICATIONS: Left hip pain after fall TECHNIQUE: AP pelvis with lateral view(s) of the left hip(s). COMPARISON: None. FINDINGS: Bones: No fractures or dislocations. Asymmetric left greater than right hip joint osteoarthritis with near [id number] articulation at the lateral left hip joint. Pelvic ring appears intact. No suspicious bony lesions. Soft tissues: The visualized bowel gas pattern is normal. No suspicious soft tissue calcifications. IMPRESSION: No trauma found. Asymmetric left greater than right hip joint osteoarthritis as discussed. Dictated by: Marcel Joshi M.D. on 01/06/2024 at 14:53 Approved by: Marcel Joshi M.D. on 01/06/2024 at 14:54
--- NOTE | 2024-01-06 13:58 | ED.FALL ---
HPI - Fall General Chief Complaint: Fall Stated Complaint: L Leg/Shoulder pain Time Seen by Provider: 01/06/24 13:40 Source: patient, family and EMS Mode of arrival: EMS Limitations: other (Memory issues) History of Present Illness HPI Narrative: Patient is an 88-year-old female. Is on anticoagulation. She was brought in by EMS for evaluation of left leg pain and left shoulder pain. Yesterday the patient and her who is at bedside fell down some stairs in their garage. Patient has been states that the patient did not hit her head. No loss of consciousness. They were able to get up afterwards. They did go out and do some things after the fall. He was when they returned home with the patient's had a difficult time getting her out of the vehicle. He stated that she actually slept in the vehicle last night and this morning he tried to get her out again and was unable to do so. This is when EMS brought her in. Here in the ER the patient denies any specific symptoms. Patient's states that she does have some memory issues. He stated that she was complaining of left leg pain when she was trying to get out of the car. There was also some reports of left shoulder pain although the patient denies any discomfort in these areas. She denies chest pain, shortness of breath, abdominal pain. Related Data Home Medications Medication Instructions Recorded Confirmed sennosides 8.6 mg tablet (Senokot) 8.6 mg DAILY 10/05/18 05/05/23 acetaminophen 325 mg tablet 650 mg PO TID 05/23/22 05/05/23 calcium 600 mg capsule 600 mg PO BID 05/23/22 05/05/23 loratadine 10 mg tablet (Claritin) 10 mg PO DAILY 05/23/22 05/05/23 vitamin B12 1,000 mcg-folic acid 1 shira sublingual DAILY 05/23/22 05/05/23 400 mcg sublingual lozenge polyethylene glycol 3350 17 17 g PO 2XW 07/16/22 05/05/23 gram/dose oral powder (Miralax) Previous Rx's Medication Instructions Recorded levothyroxine 125 mcg tablet 125 mcg PO QAM #90 tabs 03/23/23 donepezil 5 mg tablet 5 mg PO BEDTIME #90 tabs 03/26/23 metoprolol tartrate 50 mg tablet 50 mg PO BID #180 tabs 04/03/23 diltiazem HCl 240 mg 240 mg PO QAM #90 caps 04/22/23 capsule,extended release 24 hr apixaban 5 mg tablet (Eliquis) 5 mg PO BID #180 tabs 07/10/23 sulfamethoxazole 800 1 tab PO BID #14 tabs 10/20/23 mg-trimethoprim 160 mg tablet atorvastatin 20 mg tablet (Lipitor) 20 mg PO DAILY #90 tabs 12/30/23 valsartan 160 mg tablet 160 mg PO DAILY #90 tabs 12/30/23 Allergies Allergy/AdvReac Type Severity Reaction Status Date / Time allopurinol Allergy Intermediate Fatigued Verified 01/06/24 17:38 Penicillins Allergy Mild RASH Verified 01/06/24 17:38 adhesive Allergy Unknown Verified 01/06/24 17:38 donepezil AdvReac Intermediate Diarrhea Verified 01/06/24 17:38 codeine AdvReac Unknown Verified 01/06/24 17:38 Review of Systems Review of Systems Narrative: See HPI Patient History Medical History Alzheimer's dementia Venous ulcer of right leg Mild cognitive impairment Abrasion of left heel Aortic stenosis Venous (peripheral) insufficiency History of colon cancer Obstructive sleep apnea History of left breast cancer Polyneuropathy, unspecified Acquired hypothyroidism Impaired fasting glucose Mixed hyperlipidemia Essential hypertension History of subdural hematoma Chronic anticoagulation Chronic atrial fibrillation Eczema (~2014) Tinnitus (~1999) Cataracts, bilateral (~2000) Arthritis Surgical History Anesthesia History of colon surgery History of thyroid surgery History of hysterectomy (~1979) Family History Mother Cancer Father Heart disease Sister Cancer Social History marital status: household members: spouse Smoking Status: Former smoker alcohol intake: current substance use type: does not use Smoking Status: Former smoker Substance Use Type: does not use Exam Initial Vital Signs Initial Vital Signs: Vital Signs Temperature 97.9 F 01/06/24 13:27 Pulse Rate 86 01/06/24 13:27 Respiratory Rate 18 01/06/24 13:27 Blood Pressure 101/60 01/06/24 13:27 Pulse Oximetry 95 01/06/24 13:27 Oxygen Delivery Method Room Air 01/06/24 13:27 Const General: cooperative and No ill appearing ADAM Head: normal to inspection and normocephalic Resp Effort & Inspection: normal respiratory effort Auscultation: clear to auscultation bilaterally Cardio Rate: regular rate GI Inspection: normal to inspection and non-distended Skin Other: Small puncture wound posterior left heel. Neuro Other: Patient states that she was in the hospital. Knows her date but does not know what year it is. Seems to be confused about what brought her to the emergency department. Extrem Other: No gross deformities but does have discomfort with the left hip with flexion. Her left knee is unremarkable. Seems to have no discomfort with movement of the left wrist, elbow, shoulder. Course Orders Ordered: ED Orders 01/06/24 13:38 Complete Blood Count AUTO DIFF Stat Comprehensive Metabolic Panel Stat Lipase Stat 01/06/24 13:46 EKG-12 Lead Stat 01/06/24 13:58 XR hip w pel if done LT 2V Stat 01/06/24 14:01 CT cervical spine wo con Stat CT head/brain wo con Stat 01/06/24 14:11 XR foot LT min 3V Stat 01/06/24 16:53 Urinalysis and Microscopic Stat Urine Culture Stat Acetaminophen (Acetaminophen 325 Mg Tablet) 650 mg PO Q6H PRN PRN Reason: Fever/Mild Pain (1-3) Hydrocodone Bitart/Acetaminophen (Hydrocodone/Acet 5/325 Tablet) 1 tab PO Q4H PRN PRN Reason: Pain, Moderate (4-6) Heparin Sodium (Porcine) (Heparin 5,000 Unit/Ml Vial) 5,000 unit SUBCUT BID HEMAL Dextrose/Sodium Chloride (Dextrose 5%-0.9% Ns) 1,000 mls @ 50 mls/hr IV CONT HEMAL Naloxone HCl (Naloxone 0.4 Mg/Ml Vial) 0.2 mg IV Q2MIN PRN PRN Reason: Opiate Reversal Ondansetron HCl (Ondansetron 4 Mg/2 Ml Inj) 4 mg IV Q8HR PRN PRN Reason: Nausea And Vomiting Discontinued Medications Sodium Chloride (Normal Saline 0.9%) 1,000 mls @ 1,000 mls/hr IV BOLUS ONE Stop: 01/06/24 14:45 Last Infusion: 01/06/24 15:46 Dose: Infused Documented By: Admin: 01/06/24 13:51 Dose: 1,000 mls/hr Documented By: MODESTO Vital Signs Vital signs: Vital Signs - 8 hr 01/06/24 13:27 01/06/24 13:42 01/06/24 13:43 Temperature 97.9 F Pulse Rate 86 91 H Respiratory Rate 18 26 H Blood Pressure 101/60 72/47 L Pulse Oximetry 95 96 Oxygen Delivery Method Room Air 01/06/24 13:43 01/06/24 13:45 01/06/24 13:45 Temperature Pulse Rate 91 H 99 H Respiratory Rate 26 H Blood Pressure 83/55 L Pulse Oximetry 96 95 Oxygen Delivery Method 01/06/24 13:51 01/06/24 13:51 01/06/24 13:55 Temperature Pulse Rate 87 Respiratory Rate 30 H Blood Pressure 99/61 101/56 L Pulse Oximetry 94 Oxygen Delivery Method 01/06/24 13:55 01/06/24 14:00 01/06/24 14:00 Temperature Pulse Rate 92 H 93 H Respiratory Rate 27 H Blood Pressure 113/58 L Pulse Oximetry 93 94 Oxygen Delivery Method 01/06/24 14:28 01/06/24 14:28 01/06/24 14:30 Temperature Pulse Rate 93 H Respiratory Rate 27 H Blood Pressure 125/76 132/76 Pulse Oximetry 96 Oxygen Delivery Method 01/06/24 14:30 01/06/24 14:35 01/06/24 14:35 Temperature Pulse Rate 94 H 99 H Respiratory Rate 24 31 H Blood Pressure 148/75 H Pulse Oximetry 96 96 Oxygen Delivery Method 01/06/24 14:40 01/06/24 14:40 01/06/24 14:45 Temperature Pulse Rate 92 H 99 H Respiratory Rate 26 H 22 Blood Pressure 164/68 H Pulse Oximetry 97 95 Oxygen Delivery Method 01/06/24 14:45 01/06/24 14:50 01/06/24 14:50 Temperature Pulse Rate 96 H Respiratory Rate 21 Blood Pressure 145/65 H 135/63 Pulse Oximetry 94 Oxygen Delivery Method 01/06/24 14:55 01/06/24 14:55 01/06/24 15:00 Temperature Pulse Rate 93 H Respiratory Rate 20 Blood Pressure 152/64 H 142/65 H Pulse Oximetry 96 Oxygen Delivery Method 01/06/24 15:00 01/06/24 15:05 01/06/24 15:05 Temperature Pulse Rate 96 H 97 H Respiratory Rate 21 21 Blood Pressure 156/75 H Pulse Oximetry 95 95 Oxygen Delivery Method 01/06/24 15:10 01/06/24 15:10 01/06/24 15:15 Temperature Pulse Rate 98 H 100 H Respiratory Rate 21 27 H Blood Pressure 144/72 H Pulse Oximetry 95 Oxygen Delivery Method 01/06/24 15:15 01/06/24 15:20 01/06/24 15:20 Temperature Pulse Rate 99 H Respiratory Rate 28 H Blood Pressure 123/69 131/74 Pulse Oximetry Oxygen Delivery Method 01/06/24 15:25 01/06/24 15:25 01/06/24 15:30 Temperature Pulse Rate 102 H 107 H Respiratory Rate 29 H 29 H Blood Pressure 144/80 H Pulse Oximetry Oxygen Delivery Method 01/06/24 15:31 01/06/24 15:31 01/06/24 15:35 Temperature Pulse Rate 100 H Respiratory Rate 26 H Blood Pressure 145/95 H 141/81 H Pulse Oximetry Oxygen Delivery Method 01/06/24 15:35 01/06/24 15:40 01/06/24 15:40 Temperature Pulse Rate 106 H 103 H Respiratory Rate 26 H Blood Pressure 140/101 H Pulse Oximetry Oxygen Delivery Method 01/06/24 15:45 01/06/24 15:45 01/06/24 16:20 Temperature Pulse Rate 106 H 119 H Respiratory Rate 23 Blood Pressure 149/77 H Pulse Oximetry Oxygen Delivery Method 01/06/24 16:22 01/06/24 16:22 01/06/24 16:25 Temperature Pulse Rate 126 H Respiratory Rate 30 H Blood Pressure 165/72 H 164/70 H Pulse Oximetry 92 Oxygen Delivery Method 01/06/24 16:25 01/06/24 16:30 01/06/24 16:30 Temperature Pulse Rate 112 H 117 H Respiratory Rate 29 H 31 H Blood Pressure 190/74 H Pulse Oximetry 92 92 Oxygen Delivery Method 01/06/24 16:35 01/06/24 16:35 01/06/24 16:40 Temperature Pulse Rate 111 H Respiratory Rate 29 H Blood Pressure 162/73 H 148/69 H Pulse Oximetry 92 Oxygen Delivery Method 01/06/24 16:40 01/06/24 16:45 01/06/24 16:45 Temperature Pulse Rate 116 H 113 H Respiratory Rate 30 H 27 H Blood Pressure 142/77 H Pulse Oximetry 91 91 Oxygen Delivery Method 01/06/24 16:50 01/06/24 16:50 01/06/24 16:55 Temperature Pulse Rate 125 H Respiratory Rate 28 H Blood Pressure 139/65 186/72 H Pulse Oximetry 91 Oxygen Delivery Method 01/06/24 16:55 01/06/24 17:00 01/06/24 17:01 Temperature Pulse Rate 116 H 117 H Respiratory Rate 29 H 27 H Blood Pressure 197/74 H Pulse Oximetry 92 91 Oxygen Delivery Method MDM - Fall Lab Data Attestation: I reviewed the patient's lab results. 01/06/24 13:38 01/06/24 13:38 Labs: Lab Results 01/06/24 01/06/24 Range/Units 13:38 16:53 WBC 14.6 H (4.5-11.0) X10^3/uL RBC 4.28 (4.0-5.2) X10^6/uL Hgb 13.0 (12.0-16.0) g/dL Hct 39.3 (36-46) % MCV 91.7 (80-100) fL MCH 30.5 (26-34) PG MCHC 33.2 (30-36) % RDW 14.3 (11.6-14.8) % Plt Count 266 (150-400) X10^3/uL Neut % (Auto) 79.5 H (50-75) % Lymph % (Auto) 11.1 L (25-40) % [place] % (Auto) 7.7 (3-14) % Eos % (Auto) 1.3 L (2-4) % Baso % (Auto) 0.4 (0-2) % Neut # (Auto) 22168 H (4297-0727) /uL Lymph # (Auto) 1600 (3714-9730) /uL [place] # (Auto) 1100 H (0-900) /uL Eos # (Auto) 200 (0-450) /uL Baso # (Auto) 100 (0-100) /uL Sodium 129 L (137-145) mmol/L Potassium 4.4 (3.4-5.1) mmol/L Chloride 93 L (98-107) mmol/L Carbon Dioxide 29 (22-32) mmol/L BUN 16 (7-17) mg/dL Creatinine 0.69 (0.52-1.04) mg/dL Estimated GFR > 60 (>60) mL/min BUN/Creatinine Ratio 23.2 H (6-22) Glucose 136 H (80-110) mg/dL Calcium 10.0 (8.4-10.2) mg/dL Total Bilirubin 1.4 H (0.2-1.3) mg/dL AST 31 (14-36) IU/L ALT 17 (<35) IU/L Alkaline Phosphatase 73 (38-126) U/L Total Protein 7.6 (6.3-8.2) g/dL Albumin 4.3 (3.5-5.0) g/dL Globulin 3.3 (1.7-4.1) g/dL Albumin/Globulin Ratio 1.3 (1.0-2.8) Lipase 68 (23-300) U/L Urine Color Yellow Urine Appearance Sl cloudy Urine pH 6.0 (4.5-8.0) Ur Specific [place] 1.020 (1.000-1.035) Urine Protein Negative (Negative) Urine Glucose (UA) Negative (Negative) g/dL Urine Ketones Trace H (NEGATIVE) Urine Occult Blood Negative (Negative) Urine Nitrate Positive H (Negative) Urine Bilirubin Negative (NEGATIVE) Urine Urobilinogen 1.0 (0.2) E.U./dL Ur Leukocyte Esterase 1+ H (NEGATIVE) Urine RBC None seen (0-5/HPF) Urine WBC 1-5/hpf (0-5/HPF) Ur Squamous Epith Cells 0-1 /hpf (0-5/HPF) Urine Bacteria Many (>30) H (None) Ur Culture Indicated? Specimen cultured Vol Urine Centrifuged 10ml (spun) Imaging Data Extremity x-ray #1: Radiologist's Impression: PROCEDURE: XR HIP W PEL IF DONE LT 2V INDICATIONS: Left hip pain after fall TECHNIQUE: AP pelvis with lateral view(s) of the left hip(s). COMPARISON: None. FINDINGS: Bones: No fractures or dislocations. Asymmetric left greater than right hip joint osteoarthritis with near [id number]-pw-tyzp articulation at the lateral left hip joint. Pelvic ring appears intact. No suspicious bony lesions. Soft tissues: The visualized bowel gas pattern is normal. No suspicious soft tissue calcifications. IMPRESSION: No trauma found. Asymmetric left greater than right hip joint osteoarthritis as discussed. Extremity x-ray #2: Radiologist's Impression: PROCEDURE: XR FOOT LT MIN 3V INDICATIONS: pain after fall TECHNIQUE: 3 views of the foot were acquired. COMPARISON: None. FINDINGS: Bones: No fractures or dislocations. No suspicious bony lesions. Soft tissues: No tibiotalar joint effusion. Achilles tendon appears normal. IMPRESSION: No acute bony abnormality. CT scan - head: Radiologist's Impression: PROCEDURE: CT HEAD/BRAIN WO CON INDICATIONS: Fallen on thinners TECHNIQUE: Noncontrast 4.5 mm thick angled axial sections acquired from the foramen magnum to the vertex, with coronal and sagittal reformats. For radiation dose reduction, the following was used: automated exposure control, adjustment of mA and/or kV according to patient size. COMPARISON: [facility], CT, CT HEAD/BRAIN WO CON, 05/24/2022, 2:54. [facility], CT, CT HEAD/BRAIN WO CON, 05/23/2022, 20:57. FINDINGS: Image quality: Diagnostic. CSF spaces: Basal cisterns are patent. No extra-axial fluid collections. The ventricles are symmetric in size and shape. Brain: No intracranial bleeds or masses. There is cerebral volume loss for age, with resultant ventricular and sulcal prominence. There are periventricular and deep white matter chronic small vessel ischemic changes. There also is a new finding of low attenuation within the subcortical white matter and deep white matter of the right parietal region best seen centered on series 2, image 23, in an area measuring up to 3.5 cm. This may be chronic but was not present on the most recent comparison head CT from 05/24/22.There is intracranial internal carotid artery atherosclerosis. Skull and face: Calvarium and visualized facial bones appear intact, without suspicious lesions. Sinuses: Visualized sinuses and mastoids are clear. IMPRESSION: Low-attenuation as a new finding but potentially chronic subsequent to the [address] is noted within the right parietal area. MR scanning could accurately discriminate between chronic and acute or subacute etiology. No mass effect is associated, but the exact chronicity of this area of low attenuation is uncertain. No intracranial hemorrhage is found after trauma. CT - cervical spine: Radiologist's Impression: PROCEDURE: CT CERVICAL SPINE WO CON INDICATIONS: Fallen thinners TECHNIQUE: Noncontrast 3 mm thick sections acquired from the skull base to the T4 level. Sagittal and coronal reformats were then constructed. For radiation dose reduction, the following was used: automated exposure control, adjustment of mA and/or kV according to patient size. COMPARISON: [facility], CT, CT CERVICAL SPINE WO CON, 05/23/2022, 18:07. FINDINGS: Image quality: Excellent. Bones: No fractures or dislocations. Visualized superior ribs are intact. There is grade 1 anterolisthesis of C3 on C4, previously present in May of 2022. Soft tissues: Prevertebral soft tissues are normal in thickness. No paravertebral hematomas. No apical pneumothoraces. IMPRESSION: Stable multilevel degenerative disc disease and facet osteoarthritis with stable grade 1 anterolisthesis of C2 on C3. ECG Data Attestation: I personally reviewed and interpreted this ECG as follows: Interpretation: Atrial fibrillation Ventricular rate of 89 Normal axis Normal QRS Normal QTC No ST T wave changes MDM Narrative Medical decision making narrative: Patient's imaging studies show no acute fractures although patient was unable to stand at bedside requiring even a 2 person assist to even sit up in the bed. She was confused but does have history of dementia. This seems to be at baseline for her potentially even worse. Head CT shows no acute pathology. Patient does have a nitrite positive urine. It does sound like that the fall yesterday was a mechanical fall. 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 Discussed the case with Dr. Nuñez who is the hospitalist on-call who will admit. Discussed the need for admission with the patient's . She expressed understanding and agreement as well. Discharge Plan Departure Patient Disposition: Admitted as Observation Clinical Impression: Acute UTI, Weakness, Dementia, Fall, Abrasion of skin Admit Date/Time: 01/06/24 17:10 Admit Provider: Johnnie Nuñez
--- NOTE | 2024-01-06 14:01 | DI.CT.S_ITS ---
PROCEDURE: CT CERVICAL SPINE WO CON INDICATIONS: Fallen thinners TECHNIQUE: Noncontrast 3 mm thick sections acquired from the skull base to the T4 level. Sagittal and coronal reformats were then constructed. For radiation dose reduction, the following was used: automated exposure control, adjustment of mA and/or kV according to patient size. COMPARISON: [facility], CT, CT CERVICAL SPINE WO CON, 05/23/2022, 18:07. FINDINGS: Image quality: Excellent. Bones: No fractures or dislocations. Visualized superior ribs are intact. There is grade 1 anterolisthesis of C3 on C4, previously present in May of 2022. Soft tissues: Prevertebral soft tissues are normal in thickness. No paravertebral hematomas. No apical pneumothoraces. IMPRESSION: Stable multilevel degenerative disc disease and facet osteoarthritis with stable grade 1 anterolisthesis of C2 on C3. Dictated by: Marcel Joshi M.D. on 01/06/2024 at 15:00 Approved by: Marcel Joshi M.D. on 01/06/2024 at 15:03
--- NOTE | 2024-01-06 14:01 | DI.CT.S_ITS ---
PROCEDURE: CT HEAD/BRAIN WO CON INDICATIONS: Fallen on thinners TECHNIQUE: Noncontrast 4.5 mm thick angled axial sections acquired from the foramen magnum to the vertex, with coronal and sagittal reformats. For radiation dose reduction, the following was used: automated exposure control, adjustment of mA and/or kV according to patient size. COMPARISON: [facility], CT, CT HEAD/BRAIN WO CON, 05/24/2022, 2:54. [facility], CT, CT HEAD/BRAIN WO CON, 05/23/2022, 20:57. FINDINGS: Image quality: Diagnostic. CSF spaces: Basal cisterns are patent. No extra-axial fluid collections. The ventricles are symmetric in size and shape. Brain: No intracranial bleeds or masses. There is cerebral volume loss for age, with resultant ventricular and sulcal prominence. There are periventricular and deep white matter chronic small vessel ischemic changes. There also is a new finding of low attenuation within the subcortical white matter and deep white matter of the right parietal region best seen centered on series 2, image 23, in an area measuring up to 3.5 cm. This may be chronic but was not present on the most recent comparison head CT from 05/24/22.There is intracranial internal carotid artery atherosclerosis. Skull and face: Calvarium and visualized facial bones appear intact, without suspicious lesions. Sinuses: Visualized sinuses and mastoids are clear. IMPRESSION: Low-attenuation as a new finding but potentially chronic subsequent to the [address] is noted within the right parietal area. MR scanning could accurately discriminate between chronic and acute or subacute etiology. No mass effect is associated, but the exact chronicity of this area of low attenuation is uncertain. No intracranial hemorrhage is found after trauma. Dictated by: Marcel Joshi M.D. on 01/06/2024 at 14:55 Approved by: Marcel Joshi M.D. on 01/06/2024 at 15:00
[2024-01-06 14:02] LABS: Alanine Aminotransferase 17 IU/L (<35); Albumin 4.3 g/dL (3.5-5.0); Albumin Globulin Ratio 1.3 (1.0-2.8); Alkaline Phosphatase 73 U/L (38-126); Aspartate Aminotransferase 31 IU/L (14-36); BUN Creatinine Ratio 23.2 (6-22); Bilirubin Total 1.4 mg/dL (0.2-1.3); Blood Urea Nitrogen 16 mg/dL (7-17); Carbon Dioxide 29 mmol/L (22-32); Chloride 93 mmol/L (98-107); Estimated Glomerular Filt Rate > 60 mL/min (>60); Globulin 3.3 g/dL (1.7-4.1); Glucose 136 mg/dL (80-110); HEMOLYSIS 16 (0-50); Lipase 68 U/L (23-300); Potassium 4.4 mmol/L (3.4-5.1); Sodium 129 mmol/L (137-145); Total Protein 7.6 g/dL (6.3-8.2)
--- NOTE | 2024-01-06 14:11 | DI.RAD.S_ITS ---
PROCEDURE: XR FOOT LT MIN 3V INDICATIONS: pain after fall TECHNIQUE: 3 views of the foot were acquired. COMPARISON: None. FINDINGS: Bones: No fractures or dislocations. No suspicious bony lesions. Soft tissues: No tibiotalar joint effusion. Achilles tendon appears normal. IMPRESSION: No acute bony abnormality. Dictated by: Marcel Joshi M.D. on 01/06/2024 at 15:03 Approved by: Marcel Joshi M.D. on 01/06/2024 at 15:03
--- NOTE | 2024-01-06 16:35 | PC.NURSE ---
Pt failed ambulation trial , 3 person assist, gait belt and walker used. Pt was unable to stand, transfer or take any steps on her own. Pt is incontinent of large amount of urine and stool . reports she has been incontinent in the same brief for 24 hours. Stage 1 breakdown on sacrum. incontinent care done. Dr. White aware
--- NOTE | 2024-01-06 17:25 | PM.HP.1 ---
History of Present Illness History of Present Illness Chief complaint: L Leg/Shoulder pain Narrative: From ED provider: Patient is an 88-year-old female. Is on anticoagulation. She was brought in by EMS for evaluation of left leg pain and left shoulder pain. Yesterday the patient and her who is at bedside fell down some stairs in their garage. Patient has been states that the patient did not hit her head. No loss of consciousness. They were able to get up afterwards. They did go out and do some things after the fall. He was when they returned home with the patient's had a difficult time getting her out of the vehicle. He stated that she actually slept in the vehicle last night and this morning he tried to get her out again and was unable to do so. This is when EMS brought her in. Here in the ER the patient denies any specific symptoms. Patient's states that she does have some memory issues. He stated that she was complaining of left leg pain when she was trying to get out of the car. There was also some reports of left shoulder pain although the patient denies any discomfort in these areas. She denies chest pain, shortness of breath, abdominal pain. S: She has cognitive impairment. She has not really remember much about the last 24 hours but apparently after they both fell down in the garage and then went for a drive she was unable to get out of the car later in the day. Her tried to get out of the car 2 additional times and then this morning still could not get her out. She was essentially sitting in her own urine overnight in the car and ultimately he called 911 and they brought her to the hospital. She appears to be having pain from his perspective in her left hip and leg pain, possibly her back but she can not articulate this. When asked tonight what is hurting she really can not articulate that either. She denies chest pain, or dyspnea. She does not know what city she was in her what year it is. She and her have been for about 60 years. [facility] Medical History Alzheimer's dementia Venous ulcer of right leg Mild cognitive impairment Abrasion of left heel Aortic stenosis Venous (peripheral) insufficiency History of colon cancer Obstructive sleep apnea History of left breast cancer Polyneuropathy, unspecified Acquired hypothyroidism Impaired fasting glucose Mixed hyperlipidemia Essential hypertension History of subdural hematoma Chronic anticoagulation Chronic atrial fibrillation Eczema (~2014) Tinnitus (~1999) Cataracts, bilateral (~1999) Arthritis Surgical History Anesthesia History of colon surgery History of thyroid surgery History of hysterectomy (~1979) Family History Mother Cancer Father Heart disease Sister Cancer Social History marital status: household members: spouse Smoking Status: Former smoker alcohol intake: current substance use type: does not use Meds Home Medications and Allergies Home Medications Medication Instructions Recorded Confirmed Type sennosides 8.6 mg tablet (Senokot) 8.6 mg DAILY 10/05/18 05/05/23 History acetaminophen 325 mg tablet 650 mg PO TID 05/23/22 05/05/23 History calcium 600 mg capsule 600 mg PO BID 05/23/22 05/05/23 History loratadine 10 mg tablet (Claritin) 10 mg PO DAILY 05/23/22 05/05/23 History vitamin B12 1,000 mcg-folic acid 1 shira sublingual DAILY 05/23/22 05/05/23 History 400 mcg sublingual lozenge polyethylene glycol 3350 17 17 g PO 2XW 07/16/22 05/05/23 History gram/dose oral powder (Miralax) levothyroxine 125 mcg tablet 125 mcg PO QAM #90 tabs 03/23/23 05/05/23 Rx donepezil 5 mg tablet 5 mg PO BEDTIME #90 tabs 03/26/23 05/05/23 Rx metoprolol tartrate 50 mg tablet 50 mg PO BID #180 tabs 04/03/23 05/05/23 Rx diltiazem HCl 240 mg 240 mg PO QAM #90 caps 04/22/23 05/05/23 Rx capsule,extended release 24 hr apixaban 5 mg tablet (Eliquis) 5 mg PO BID #180 tabs 07/10/23 Rx sulfamethoxazole 800 1 tab PO BID #14 tabs 10/20/23 Rx mg-trimethoprim 160 mg tablet atorvastatin 20 mg tablet (Lipitor) 20 mg PO DAILY #90 tabs 12/30/23 Rx valsartan 160 mg tablet 160 mg PO DAILY #90 tabs 12/30/23 Rx Allergies Allergy/AdvReac Type Severity Reaction Status Date / Time allopurinol Allergy Intermediate Fatigued Verified 01/06/24 17:38 Penicillins Allergy Mild RASH Verified 01/06/24 17:38 adhesive Allergy Unknown Verified 01/06/24 17:38 donepezil AdvReac Intermediate Diarrhea Verified 01/06/24 17:38 codeine AdvReac Unknown Verified 01/06/24 17:38 Review of Systems Review of Systems Narrative: All else reviewed and otherwise unremarkable except as noted in the history and physical. Exam Vital Signs (past 8 hours): - 01/06/24 13:27 01/06/24 13:42 01/06/24 13:43 Temperature 97.9 F Pulse Rate 86 91 H Respiratory Rate 18 26 H Blood Pressure 101/60 72/47 L Pulse Oximetry 95 96 Oxygen Delivery Method Room Air 01/06/24 13:43 01/06/24 13:45 01/06/24 13:45 Temperature Pulse Rate 91 H 99 H Respiratory Rate 26 H Blood Pressure 83/55 L Pulse Oximetry 96 95 Oxygen Delivery Method 01/06/24 13:51 01/06/24 13:51 01/06/24 13:55 Temperature Pulse Rate 87 Respiratory Rate 30 H Blood Pressure 99/61 101/56 L Pulse Oximetry 94 Oxygen Delivery Method 01/06/24 13:55 01/06/24 14:00 01/06/24 14:00 Temperature Pulse Rate 92 H 93 H Respiratory Rate 27 H Blood Pressure 113/58 L Pulse Oximetry 93 94 Oxygen Delivery Method 01/06/24 14:28 01/06/24 14:28 01/06/24 14:30 Temperature Pulse Rate 93 H Respiratory Rate 27 H Blood Pressure 125/76 132/76 Pulse Oximetry 96 Oxygen Delivery Method 01/06/24 14:30 01/06/24 14:35 01/06/24 14:35 Temperature Pulse Rate 94 H 99 H Respiratory Rate 24 31 H Blood Pressure 148/75 H Pulse Oximetry 96 96 Oxygen Delivery Method 01/06/24 14:40 01/06/24 14:40 01/06/24 14:45 Temperature Pulse Rate 92 H 99 H Respiratory Rate 26 H 22 Blood Pressure 164/68 H Pulse Oximetry 97 95 Oxygen Delivery Method 01/06/24 14:45 01/06/24 14:50 01/06/24 14:50 Temperature Pulse Rate 96 H Respiratory Rate 21 Blood Pressure 145/65 H 135/63 Pulse Oximetry 94 Oxygen Delivery Method 01/06/24 14:55 01/06/24 14:55 01/06/24 15:00 Temperature Pulse Rate 93 H Respiratory Rate 20 Blood Pressure 152/64 H 142/65 H Pulse Oximetry 96 Oxygen Delivery Method 01/06/24 15:00 01/06/24 15:05 01/06/24 15:05 Temperature Pulse Rate 96 H 97 H Respiratory Rate 21 21 Blood Pressure 156/75 H Pulse Oximetry 95 95 Oxygen Delivery Method 01/06/24 15:10 01/06/24 15:10 01/06/24 15:15 Temperature Pulse Rate 98 H 100 H Respiratory Rate 21 27 H Blood Pressure 144/72 H Pulse Oximetry 95 Oxygen Delivery Method 01/06/24 15:15 01/06/24 15:20 01/06/24 15:20 Temperature Pulse Rate 99 H Respiratory Rate 28 H Blood Pressure 123/69 131/74 Pulse Oximetry Oxygen Delivery Method 01/06/24 15:25 01/06/24 15:25 01/06/24 15:30 Temperature Pulse Rate 102 H 107 H Respiratory Rate 29 H 29 H Blood Pressure 144/80 H Pulse Oximetry Oxygen Delivery Method 01/06/24 15:31 01/06/24 15:31 01/06/24 15:35 Temperature Pulse Rate 100 H Respiratory Rate 26 H Blood Pressure 145/95 H 141/81 H Pulse Oximetry Oxygen Delivery Method 01/06/24 15:35 01/06/24 15:40 01/06/24 15:40 Temperature Pulse Rate 106 H 103 H Respiratory Rate 26 H Blood Pressure 140/101 H Pulse Oximetry Oxygen Delivery Method 01/06/24 15:45 01/06/24 15:45 01/06/24 16:20 Temperature Pulse Rate 106 H 119 H Respiratory Rate 23 Blood Pressure 149/77 H Pulse Oximetry Oxygen Delivery Method 01/06/24 16:22 01/06/24 16:22 01/06/24 16:25 Temperature Pulse Rate 126 H Respiratory Rate 30 H Blood Pressure 165/72 H 164/70 H Pulse Oximetry 92 Oxygen Delivery Method 01/06/24 16:25 01/06/24 16:30 01/06/24 16:30 Temperature Pulse Rate 112 H 117 H Respiratory Rate 29 H 31 H Blood Pressure 190/74 H Pulse Oximetry 92 92 Oxygen Delivery Method 01/06/24 16:35 01/06/24 16:35 01/06/24 16:40 Temperature Pulse Rate 111 H Respiratory Rate 29 H Blood Pressure 162/73 H 148/69 H Pulse Oximetry 92 Oxygen Delivery Method 01/06/24 16:40 01/06/24 16:45 01/06/24 16:45 Temperature Pulse Rate 116 H 113 H Respiratory Rate 30 H 27 H Blood Pressure 142/77 H Pulse Oximetry 91 91 Oxygen Delivery Method 01/06/24 16:50 01/06/24 16:50 01/06/24 16:55 Temperature Pulse Rate 125 H Respiratory Rate 28 H Blood Pressure 139/65 186/72 H Pulse Oximetry 91 Oxygen Delivery Method 01/06/24 16:55 01/06/24 17:00 01/06/24 17:01 Temperature Pulse Rate 116 H 117 H Respiratory Rate 29 H 27 H Blood Pressure 197/74 H Pulse Oximetry 92 91 Oxygen Delivery Method Oxygen Delivery Method Room Air Narrative Exam Narrative: NAD, alert and oriented, fluent speech, calm. She has a relatively severe kyphosis. Normocephalic skull, EOMI, anicteric sclera, symmetric pupils. Oropharynx unremarkable, no droop. Neck supple, midline trachea, no adenopathy. Lungs clear, normal rate and effort. Heart regular, no murmur gallop or rub. Abdomen is soft, non distended and non tender. Extremities are free of edema. Skin is free of rash or lesions. Joints are not swollen or deformed. Judgment appears to be abnormal. Objective ECG Impression: Interpretation: Atrial fibrillation Ventricular rate of 89 Normal axis Normal QRS Normal QTC No ST T wave changes Imaging Multiple studies:: Radiologist's impression: XR HIP: Bones: No fractures or dislocations. Asymmetric left greater than right hip joint osteoarthritis with near [id number] articulation at the lateral left hip joint. Pelvic ring appears intact. No suspicious bony lesions. Soft tissues: The visualized bowel gas pattern is normal. No suspicious soft tissue calcifications. XR FOOT LT MIN 3V Bones: No fractures or dislocations. No suspicious bony lesions. Soft tissues: No tibiotalar joint effusion. Achilles tendon appears normal. CT head: Low-attenuation as a new finding but potentially chronic subsequent to the [address] is noted within the right parietal area. MR scanning could accurately discriminate between chronic and acute or subacute etiology. No mass effect is associated, but the exact chronicity of this area of low attenuation is uncertain. No intracranial hemorrhage is found after trauma. C-spine CT: Stable multilevel degenerative disc disease and facet osteoarthritis with stable grade 1 anterolisthesis of C2 on C3. Labs 01/06/24 13:38 01/06/24 13:38 Labs: Laboratory Results - last 24 hr 01/06/24 13:38 WBC 14.6 H RBC 4.28 Hgb 13.0 Hct 39.3 MCV 91.7 MCH 30.5 MCHC 33.2 RDW 14.3 Plt Count 266 Neut % (Auto) 79.5 H Lymph % (Auto) 11.1 L [place] % (Auto) 7.7 Eos % (Auto) 1.3 L Baso % (Auto) 0.4 Neut # (Auto) 17591 H Lymph # (Auto) 1600 [place] # (Auto) 1100 H Eos # (Auto) 200 Baso # (Auto) 100 Sodium 129 L Potassium 4.4 Chloride 93 L Carbon Dioxide 29 BUN 16 Creatinine 0.69 Estimated GFR > 60 BUN/Creatinine Ratio 23.2 H Glucose 136 H Calcium 10.0 Total Bilirubin 1.4 H AST 31 ALT 17 Alkaline Phosphatase 73 Total Protein 7.6 Albumin 4.3 Globulin 3.3 Albumin/Globulin Ratio 1.3 Lipase 68 Assessment & Plan Assessment & Plan narrative: 1. Weakness, present on admission and active. 2. Recent fall, present on admission and active. 3. Atrial fibrillation, present on admission and active. 4. Chronic anticoagulation with recent fall, present on admission and active. 5. Hypothyroidism, present on admission and active. 6. Cognitive impairment, present on admission and active. Plan: -telemetry -discontinue anticoagulation, she has not a great candidate for this. -physical therapy and occupational therapy assessments -discharge planning. She was admitted to observation status, 1 midnight stay is anticipated. Full resuscitation. He willbring POLST in tomorrow. Proxy decision maker is . Time-Based Coding :: 40 min spent with patient and on the chart (including review of chart, obtaining history, exam, reviewing outside data, placing orders, documenting exam and treatment plan, and counseling patient) on [DATE]. Quality MIPS - Admit I confirm the patient?s Advance Care Plan is present, Code status is documented, Surrogate decision maker is in patient?s record [If Yes, STOP here]: Yes [facility] - Meds 'Current medications' to include all prescriptions, [id number] products, herbals, cannabis/cannabidiol products, and vitamin/mineral/dietary (nutritional) supplements. I have utilized all available resources to obtain, update, or review the patient?s current medications. [If Yes, STOP here]: Yes
[2024-01-06 17:37] LABS: Appearance Urine UA SL CLOUDY; Bilirubin Urine UA NEGATIVE (NEGATIVE); Color Urine UA YELLOW; Glucose Urine UA NEGATIVE (Negative); Ketones Urine UA TRACE (NEGATIVE); Leukocyte Esterase Urine UA 1+ (NEGATIVE); Nitrite Urine UA POSITIVE (Negative); Occult Blood Urine UA NEGATIVE (Negative); Protein Urine UA NEGATIVE (Negative)
[2024-01-06 17:43] LABS: Bacteria Urine Many (>30); Culture Indicated Urine Specimen Cultured; RBC Urine None Seen (0-5/HPF); Squamous Epithelial Cell Urine 0-1 /HPF (0-5/HPF); Urine Volume 10mL (spun); WBC Urine 1-5/HPF (0-5/HPF)
[2024-01-06] MEDS: DEXTROSE 5%-0.9% NS 1,000 ML 50 ML IV (18:57)
[2024-01-06] MEDS: HEPARIN 5,000 UNIT/ML VIAL 5000 UNIT SUBCUT (21:57)
[2024-01-07] VITALS (8 sets, daily range): BP systolic 111–138; BP diastolic 52–81; PULSE 81–129; RESP 14–19; TEMP 35.8–37.2; O2SAT 92–97
[2024-01-07] MEDS: dilTIAZem CD 120 MG CAP 240 MG PO (02:39)
[2024-01-07] MEDS: METOPROLOL IR 50 MG TABLET PO ×3 (02:39→21:12)
[2024-01-07 05:05] LABS: Add Manual Diff / Slide Review NO; Basophils Absolute Auto 0 /uL (0-100); Basophils Percent Auto 0.1 % (0-2); Eosinophils Absolute Auto 100 /uL (0-450); Eosinophils Percent Auto 0.8 % (2-4); Hemoglobin 11.7 g/dL (12.0-16.0); Lymphocytes Absolute Auto 1200 /uL (1100-4500); Lymphocytes Percent Auto 8.1 % (25-40); Mean Corpuscular HGB Conc 33.5 % (30-36); Mean Corpuscular Hemoglobin 30.5 PG (26-34); Mean Corpuscular Volume 91.2 fL (80-100); Monocytes Absolute Auto 1400 /uL (0-900); Monocytes Percent Auto 9.5 % (3-14); Neutrophils Absolute Auto 12200 /uL (1500-7000); Neutrophils Percent Auto 81.5 % (50-75); Platelet Count 232 X10^3/uL (150-400); Red Blood Cell Count 3.83 X10^6/uL (4.0-5.2); Red Cell Distribution Width 14.7 % (11.6-14.8)
[2024-01-07 05:15] LABS: BUN Creatinine Ratio 27.1 (6-22); Blood Urea Nitrogen 13 mg/dL (7-17); Calcium 8.6 mg/dL (8.4-10.2); Carbon Dioxide 25 mmol/L (22-32); Chloride 98 mmol/L (98-107); Estimated Glomerular Filt Rate > 60 mL/min (>60); Glucose 149 mg/dL (80-110); HEMOLYSIS < 15 (0-50); Sodium 128 mmol/L (137-145)
[2024-01-07] MEDS: HEPARIN 5,000 UNIT/ML VIAL 5000 UNIT SUBCUT (09:53)
[2024-01-07] MEDS: SODIUM CHLORIDE 0.9% FLUSH 10 ML IV ×2 (09:53→21:13)
--- NOTE | 2024-01-07 10:28 | PT.OIE ---
Past Medical History (Last Reviewed 01/06/24 @ 17:37 by Johnnie Nuñez MD) Abrasion of left heel Acquired hypothyroidism Alzheimer's dementia Aortic stenosis Arthritis Cataracts, bilateral (~1999) Chronic anticoagulation Chronic atrial fibrillation Eczema (~2014) Essential hypertension History of colon cancer History of left breast cancer History of subdural hematoma Impaired fasting glucose Mild cognitive impairment Mixed hyperlipidemia Obstructive sleep apnea Polyneuropathy, unspecified Tinnitus (~1999) Venous (peripheral) insufficiency Venous ulcer of right leg Past Surgical History (Last Reviewed 01/06/24 @ 17:37 by Johnnie Nuñez MD) Anesthesia History of colon surgery History of hysterectomy (~1979) History of thyroid surgery Visit Care Team Role Provider Type Miguel Angel Phelps MD Primary Care Provider Physician Specialty: Internal Medicine Address: [address] [place] [address], [facility] Email: [email or web address] Brandon White DO Emergency Provider Physician Referring Provider Specialty: Emergency Medicine Address: [address] [place] [address], [id number] Email: [email or web address] Johnnie Nuñez MD Admit Provider Physician Attending Provider Specialty: Internal Medicine Address: [address] [place] [address], [id number] Email: [email or web address]
--- NOTE | 2024-01-07 10:42 | PT.IIE ---
Surgical History (Last Reviewed 01/06/24 @ 17:37 by Johnnie Nuñez MD) Anesthesia History of colon surgery History of hysterectomy (~1979) History of thyroid surgery Medical History (Last Reviewed 01/06/24 @ 17:37 by Johnnie Nuñez MD) Abrasion of left heel Acquired hypothyroidism Alzheimer's dementia Aortic stenosis Arthritis Cataracts, bilateral (~1999) Chronic anticoagulation Chronic atrial fibrillation Eczema (~2015) Essential hypertension History of colon cancer History of left breast cancer History of subdural hematoma Impaired fasting glucose Mild cognitive impairment Mixed hyperlipidemia Obstructive sleep apnea Polyneuropathy, unspecified Tinnitus (~1999) Venous (peripheral) insufficiency Venous ulcer of right leg Physical Therapy Inpatient Evaluation/Re-Eval M1 PT/OT-IP Prior Functional Status Start: 01/07/24 10:01 Freq: NEEDED Status: Active Protocol: Document 01/07/24 10:01 [facility] (Rec: 01/07/24 10:28 [facility] [id number]) Medical Review Prior Functional Status Medical History Reviewed Yes Diet/Fluid Consistency Regular Communication confused Mobility and Gait per pt amb w/FWW with him SBA. She does not move very much but they do leave the house daily to go for a drive and eat lunch in the car . pt goes down stairs w/ help and rail use. pt sleeps in recliner for several months d/t difficulty getting out of bed. Activities of Daily Living and IADL's helps her w/all ADLs. Pt is incontinent so he helps her clean up and change briefs and is unable to shower so does sponge baths with pt. Indep w/eating but reports eats very little Social History Household Members spouse Living Arrangements House Number of Floors (Floors) One Floor Number of Stairs To Enter/Railing? 4 PETER w/Rail Home Environment Standard Height Toilet,Tub/ Shower Home Equipment Front Wheel Walker,Raised Toilet Seat w/Armrests M2 PT-IP Current Condition Start: 01/07/24 10:01 Freq: NEEDED Status: Active Protocol: Document 01/07/24 10:01 [facility] (Rec: 01/07/24 10:28 [facility] [id number]) Physical Therapy Current Condition Current Condition Evaluation Date 01/07/24 Treatment Diagnosis L leg/shoulder pain; weakness M3 PT-IP Subjective Start: 01/07/24 10:01 Freq: NEEDED Status: Active Protocol: Document 01/07/24 10:01 [facility] (Rec: 01/07/24 10:28 [facility] [id number]) Subjective Physical Therapy Visit Type Type Initial Evaluation Visit Start Time 09:06 Visit Stop Time 10:00 Number of AUDIO VISUAL SECRETARY Visits 0 Physical Therapy Visit Comments Patient Comments present for part of session for mobility Therapy Pain Assessment Pain When Pain Assessed During Mobility Pain Present Pain Present Pain Reported Location left leg Scale Used L&R hip Pain Behaviors Calling Out,Facial Grimacing, Wincing Pain Management Techniques Re-positioning M4 PT-IP Mobility and Gait Start: 01/07/24 10:01 Freq: NEEDED Status: Active Protocol: Document 01/07/24 10:01 [facility] (Rec: 01/07/24 10:28 [facility] [id number]) PT-Bed Mobility Assessment Rolling Type of Rolling Bilateral Level of Assist Maximal Assistance,2 Person Assistance PT-Transfer Assessment Comments Mobility Comments pt rolled in bed w/use of bed functions and dependent w/2 people. She did hold rail once rolled to side but was very confused during garcía care and required consistent reassurance. Nursing shown 2 wounds to buttocks. Attempted once done w/garcía care to sit up at EOB but pt complained of significant pain and was unable to help w/even moving LEs to side. Pt left w/call light in reach and bed alarm on and in room. M5 PT-IP Objective Assessments Start: 01/07/24 10:01 Freq: NEEDED Status: Active Protocol: Document 01/07/24 10:01 [facility] (Rec: 01/07/24 10:28 [facility] [id number]) Orientation Orientation/Cognition Level of Alertness Confusional State Orientation Name,Birthday Safety Awareness Decreased Safety Awareness Memory Description Short Term Impaired,Windmill Technician Impaired Gross Range of Motion Lower Extremity ROM Assessment Bilaterally Impaired Impairments pt unable to do any AROM of LEs w/commands and w/PROM pt c /o significant pain B Strength Lower Extremity Strength Assessment Bilaterally Impaired Sensation Assessment Comments Sensation Comments noted LLE had more firm feel and noted this to RN M7 PT-IP Assessment and Plan Start: 01/07/24 10:01 Freq: NEEDED Status: Active Protocol: Document 01/07/24 10:01 [facility] (Rec: 01/07/24 10:28 [facility] [id number]) PT Summary Assessment and Plan Potential Rehabilitation Potential Poor Status of Condition at Evaluation Unstable Summary Impairments Pain,ROM,Strength,Balance, Cognition,Bed Mobility, Transfers,Gait,Activity Tolerance Assessment Summary Pt presents after fall down stairs 2 days ago when leaving the house w/ where she spent the night in the car after d/t not being able to get out, where he then had to call EMS. Pt had negative xrays for fracture of hip, neck or foot, but has significant pain w/even small amounts of mobility where she cries out. Pt does have underlying dementia and is not oriented to place, situation or time and was aggitated w/ mobility which complicatees her mobility. She was dependent with bed mobility today. At this time d/t pt dec mobility, pt is not safe to go home and will required SNF or consideration of higher level care. Goals Bed Mobility Goal Moderate Assistance Transfer Goal Moderate Assistance,Front Wheeled Walker Gait Goal Moderate Assistance,Front Wheel Walker Gait Distance 50ft Other Goals Pt will be able to go up/down 4 steps w/rail and mod A Days to Meet Goals 10 Frequency of Treatment Frequency Of Treatment Once a Day Treatment Plan Physical Therapy Treatment Plan Bed Mobility Training,Transfer Training,Gait Training, Therapeutic Exercise,Balance Retraining,Discharge Planning, Neuromuscular Re-ed Other Recommendations and Next Treatment attempt to sit at EOB if pt Focus able and progress to stand at EOB Recommendations To Nursing Amount of Assist Needed Mechanical Lift Discharge Recommendations PT Discharge Recommendations SNF Rehab Transportation Needs at Discharge Stretcher/Ambulance
[2024-01-07] MEDS: HALOPERIDOL 5 MG/ML VIAL 1 MG IV (10:54)
--- NOTE | 2024-01-07 11:41 | OT.IPNOTE ---
Pt is lots of pain and has been dependent for all ADL and mobility needs at this time, therefore hold OT and check on pt tomorrow.
[2024-01-07] MEDS: HALOPERIDOL 5 MG/ML VIAL IV (13:21)
[2024-01-07] MEDS: HYDROCODONE/ACET 5/325 TABLET 1 TAB PO (13:21)
--- NOTE | 2024-01-07 14:21 | P.PN_ITS ---
Subjective Subjective Date Patient Seen: 01/07/24 Time Patient Seen: 10:50 Interval history: The patient is awake, and reports to be feeling better. She had a large bladder residual, but was ultimately able to urinate independently. She reports neck stiffness and discomfort. CT images are reviewed with no significant change from 05/27. Exam Vital Signs (past 8 hours): - 01/07/24 07:00 01/07/24 08:00 01/07/24 12:00 Temperature 97.9 F 97.8 F Pulse Rate 86 89 Respiratory Rate 14 14 Blood Pressure 111/52 L 125/78 Pulse Oximetry 94 93 Oxygen Delivery Method Room Air Oxygen Flow Rate 0 0 Oxygen Delivery Method Room Air Oxygen Flow Rate 0 Narrative Exam Narrative: GENERAL: This is a well-nourished, well-developed patient, in no apparent distress. HEAD: Atraumatic. Normocephalic. No temporal or scalp tenderness. EYES: Pupils equal round and reactive. Extraocular motions intact. No scleral icterus. No injection or drainage. ENT: Mucous membranes pink and moist. NECK: Neck with significant stiffness, tilted to the left and kyphosis. CARDIOVASCULAR: Regular rate and rhythm without murmurs, gallops, or rubs. RESPIRATORY: Clear to auscultation. GASTROINTESTINAL: Abdomen soft, non-tender, nondistended. EXTREMITIES: No clubbing, cyanosis, or edema. NEUROLOGIC: Alert, oriented, speech fluent, full upper and lower motor strength, no focal deficits evident. Reflexes 2+ symmetric without spasticity. DERMATOLOGIC: No rashes or skin lesions. Objective Labs 01/07/24 04:22 01/07/24 04:22 Labs: Laboratory Results - last 24 hr 01/06/24 01/07/24 16:53 04:22 WBC 15.0 H RBC 3.83 L Hgb 11.7 L Hct 35.0 L MCV 91.2 MCH 30.5 MCHC 33.5 RDW 14.7 Plt Count 232 Neut % (Auto) 81.5 H Lymph % (Auto) 8.1 L Oliver % (Auto) 9.5 Eos % (Auto) 0.8 L Baso % (Auto) 0.1 Neut # (Auto) 30331 H Lymph # (Auto) 1200 Oliver # (Auto) 1400 H Eos # (Auto) 100 Baso # (Auto) 0 Sodium 128 L Potassium 4.0 Chloride 98 Carbon Dioxide 25 BUN 13 Creatinine 0.48 L Estimated GFR > 60 BUN/Creatinine Ratio 27.1 H Glucose 149 H Calcium 8.6 Urine Color Yellow Urine Appearance Sl cloudy Urine pH 6.0 Ur Specific [place] 1.020 Urine Protein Negative Urine Glucose (UA) Negative Urine Ketones Trace H Urine Occult Blood Negative Urine Nitrate Positive H Urine Bilirubin Negative Urine Urobilinogen 1.0 Ur Leukocyte Esterase 1+ H Urine RBC None seen Urine WBC 1-5/hpf Ur Squamous Epith Cells 0-1 /hpf Urine Bacteria Many (>30) H Ur Culture Indicated? Specimen cultured Vol Urine Centrifuged 10ml (spun) [facility] Medical History Alzheimer's dementia Venous ulcer of right leg Mild cognitive impairment Abrasion of left heel Aortic stenosis Venous (peripheral) insufficiency History of colon cancer Obstructive sleep apnea History of left breast cancer Polyneuropathy, unspecified Acquired hypothyroidism Impaired fasting glucose Mixed hyperlipidemia Essential hypertension History of subdural hematoma Chronic anticoagulation Chronic atrial fibrillation Eczema (~2014) Tinnitus (~1999) Cataracts, bilateral (~1999) Arthritis Surgical History Anesthesia History of colon surgery History of thyroid surgery History of hysterectomy (~1979) Family History Mother Cancer Father Heart disease Sister Cancer Social History marital status: household members: spouse Smoking Status: Former smoker alcohol intake: current substance use type: does not use Assessment & Plan Assessment & Plan narrative: 1. Weakness, present on admission and active. 2. Recent fall, present on admission and active. 3. Atrial fibrillation, present on admission and active. 4. Chronic anticoagulation with recent fall, present on admission and active. 5. Hypothyroidism, present on admission and active. 6. Cognitive impairment, present on admission and active. 7. Neck stiffness, likely cervical strain. Symptomatic care. Plan: -telemetry -discontinue anticoagulation given high fall risk. -physical therapy and occupational therapy assessments -symptomatic care for cervical strain. -discharge planning. She was admitted to observation status, but remains profoundly weak and unable to stand. She may require more than 2 midnights. Full resuscitation. POLST form reviewed with who will consider and discuss further Proxy decision maker is . Time-Based Coding :: [TOTAL MINUTES] spent with patient and on the chart (including review of chart, obtaining history, exam, reviewing outside data, placing orders, documenting exam and treatment plan, and counseling patient) on [DATE]. Quality VTE Deep Vein Thrombosis/Pulmonary Embolism Present on Admission: No PROFEE Charge codes Subsequent inpatient/observation care: 43107
--- NOTE | 2024-01-07 15:18 | CM.DANOTE ---
Addendum entered by JUAN JOSE Brandt 01/08/24 08:38: ADD: SNF referrals emailed to [facility] and [facility]. Addendum entered by JUAN JOSE Brandt 01/07/24 15:28: Correction: Will ask that NAWAF Eli start SNF referrals tomorrow. Need SNF contracted with [facility] SAUC[facility]O and auth secured. Need [facility] if SNF. Original Note: Initial DCP Assessment Note Pt is an 88 yo female w/dementia, resident of [facility], arrives after a recent fall in her garage, with subsequent weakness and inability to safely ambulate. PCP: Miguel Angel Phelps Payer: [facility] SAUC[facility]O Reviewed chart, met w/patient's spouse Abrahan at bedside, introduced self and role. Patient sleeping throughout this visit. Spouse reports patient's dementia dx came approx a year ago. Patient's children live in [place] and [place] and have encouraged spouse to consider addtl care in the home vs dementia care unit. Spouse remarks several times this visit that he has a tendency to put things on the back burner and has been in a state of denial about the progression of patient's dementia. Spouse provides all assist to patient. Patient lives in her power chair in the den, spouse does all cooking, cleaning, meds and driving. Spouse sleeps in a recliner next to patient. Patient does not attempt to get up at night and does not attempt to leave their home. Discussed recommendation for SNF and spouse hesitant, says he was hopeful patient could be cared for at home. Discussed the following; SNF vs home w/in home care vs [facility]/memory care. Spouse prefers to have referrals sent to SNFs in the area while he considers all dispo options. Referrals emailed to [facility], [facility], [facility] for review. CM team following closely for coordination of DCP. JUAN JOSE Wei Discharge Planning/Care Management CM Discharge Assessment Start: 01/07/24 15:09 Freq: Status: Active Protocol: Document 01/07/24 15:09 RHONDA (Rec: 01/07/24 15:18 RHONDA [id number]) Discharge Planning Assessment Assigned [employer] JUAN JOSE Parekh DPOA/Assigned Designee Name Abrahan Blunt, spouse Contact Information [phone] Advance Directives? Yes Advance Directives on File No History Provided By Significant Other,Medical Record Prior Living Arrangements House Household Members spouse Type of transporation used prior to Relies on Others admit Independent with ADL's No Is patient alert and oriented? No Needs Assistance With Bathing,Grooming,Meal Prep, Toileting,Managing Medications ,Home Chores / Shopping Comment Eats small amounts per spouse Patient/Family Preference Alf Facility Barriers to Discharge Yes Comment Patient is below PLOF, spouse is considering SNF vs home with private in home care vs bed bug exterminator care Transportation Arrangement TBD Referrals Initiated Alf Additional Comment Initiated referrals to [facility], [facility], [facility], [facility] SNF/[facility] Preference No SNF preference at this time . Spouse agreeable to SNF referrals being initiated and will consider all dispo options.
[2024-01-08 04:35] VITALS: BP 130/85; PULSE 116; RESP 18; TEMP 36.6; O2SAT 95
[2024-01-08 05:57] LABS: Add Manual Diff / Slide Review NO; Basophils Absolute Auto 0 /uL (0-100); Basophils Percent Auto 0.1 % (0-2); Eosinophils Absolute Auto 0 /uL (0-450); Eosinophils Percent Auto 0.3 % (2-4); Hematocrit 35.6 % (36-46); Hemoglobin 11.9 g/dL (12.0-16.0); Lymphocytes Absolute Auto 1200 /uL (1100-4500); Lymphocytes Percent Auto 7.9 % (25-40); Mean Corpuscular HGB Conc 33.4 % (30-36); Mean Corpuscular Hemoglobin 30.5 PG (26-34); Mean Corpuscular Volume 91.5 fL (80-100); Monocytes Absolute Auto 1800 /uL (0-900); Monocytes Percent Auto 11.6 % (3-14); Neutrophils Absolute Auto 12600 /uL (1500-7000); Neutrophils Percent Auto 80.1 % (50-75); Platelet Count 212 X10^3/uL (150-400); Red Blood Cell Count 3.89 X10^6/uL (4.0-5.2); Red Cell Distribution Width 14.5 % (11.6-14.8); White Blood Cell Count 15.7 X10^3/uL (4.5-11.0)
[2024-01-08 06:04] LABS: Blood Urea Nitrogen 13 mg/dL (7-17); Calcium 8.7 mg/dL (8.4-10.2); Carbon Dioxide 28 mmol/L (22-32); Chloride 97 mmol/L (98-107); Estimated Glomerular Filt Rate > 60 mL/min (>60); Glucose 132 mg/dL (80-110); HEMOLYSIS < 15 (0-50); Potassium 4.1 mmol/L (3.4-5.1); Sodium 130 mmol/L (137-145)
[2024-01-08 08:00] VITALS: BP 151/85; PULSE 125; RESP 19; TEMP 36.6; O2SAT 95
[2024-01-08] MEDS: dilTIAZem CD 120 MG CAP 240 MG PO (08:22)
[2024-01-08] MEDS: SODIUM CHLORIDE 0.9% FLUSH 10 ML IV ×2 (08:22→21:17)
[2024-01-08] MEDS: METOPROLOL IR 50 MG TABLET PO ×2 (08:22→21:16)
[2024-01-08 08:25] VITALS: BP 154/79
--- NOTE | 2024-01-08 10:18 | PT.IPTN ---
Physical Therapy Treatment Note M2 PT-IP Current Condition Start: 01/07/24 10:01 Freq: NEEDED Status: Active Protocol: Document 01/07/24 10:01 [facility] (Rec: 01/07/24 10:28 [facility] [id number]) Physical Therapy Current Condition Current Condition Evaluation Date 01/07/24 Treatment Diagnosis L leg/shoulder pain; weakness M3 PT-IP Subjective Start: 01/07/24 10:01 Freq: NEEDED Status: Active Protocol: Document 01/08/24 10:56 TS (Rec: 01/08/24 11:11 TS [id number]) Subjective Physical Therapy Visit Type Type Treatment Note Visit Start Time 10:18 Visit Stop Time 10:45 Number of MOTION GRAPHICS ARTIST Visits 1 Physical Therapy Visit Comments Patient Comments Pt found resting in bed, is confused and requires motivation to participate with PT. She reports pain in low back with mobility, RN notified. Therapy Pain Assessment Pain When Pain Assessed During Mobility Pain Present Pain Present Pain Reported M4 PT-IP Mobility and Gait Start: 01/07/24 10:01 Freq: NEEDED Status: Active Protocol: Document 01/08/24 10:56 TS (Rec: 01/08/24 11:11 TS [id number]) PT-Bed Mobility Assessment Supine to Sit Supine to Sit Maximum Assistance,2 Person Assistance Sit to Supine Sit to Supine Total Assistance,2 Person Assistance Scooting Scooting to Edge of Bed Dependent PT-Transfer Assessment Comments Mobility Comments Supine to sit MaxA x2 for sitting up to EOB w/max cues for sequencing. She sat EOB MaxA x1 with cues for BUE support, pt is fearful of falling. Pt reported pain in low back and requested back to bed. Total assist x2 for sit to supine. Pt was left in bed, all needs met. PT-Balance Assessment Sitting Balance and Reactions Static Sitting Balance Ability Fair Dynamic Sitting Balance Ability Poor M5 PT-IP Objective Assessments Start: 01/07/24 10:01 Freq: NEEDED Status: Active Protocol: Document 01/07/24 10:01 [facility] (Rec: 01/07/24 10:28 [facility] [id number]) Orientation Orientation/Cognition Level of Alertness Confusional State Orientation Name,Birthday Safety Awareness Decreased Safety Awareness Memory Description Short Term Impaired,Design Engineering Technician Impaired Gross Range of Motion Lower Extremity ROM Assessment Bilaterally Impaired Impairments pt unable to do any AROM of LEs w/commands and w/PROM pt c /o significant pain B Strength Lower Extremity Strength Assessment Bilaterally Impaired Sensation Assessment Comments Sensation Comments noted LLE had more firm feel and noted this to RN M7 PT-IP Assessment and Plan Start: 01/07/24 10:01 Freq: NEEDED Status: Active Protocol: Document 01/08/24 10:56 TS (Rec: 01/08/24 11:11 TS [id number]) PT Summary Assessment and Plan Potential Rehabilitation Potential Poor Summary Impairments Pain,ROM,Strength,Balance, Cognition,Bed Mobility, Transfers,Gait,Activity Tolerance Progress Towards Goals Slow Progress - Other Assessment Summary Rose Marie is making slow progress with her mobility. She is MaxA -total assist x2 for bed mobility. She did not progress to standing this session. She becomes fearful of mobility and reports LBP. PT continues to recommend SNF. Goals Bed Mobility Goal Moderate Assistance Transfer Goal Moderate Assistance,Front Wheeled Walker Gait Goal Moderate Assistance,Front Wheel Walker Gait Distance 50ft Other Goals Pt will be able to go up/down 4 steps w/rail and mod A Days to Meet Goals 10 Frequency of Treatment Frequency Of Treatment Once a Day Treatment Plan Physical Therapy Treatment Plan Bed Mobility Training,Transfer Training,Gait Training, Therapeutic Exercise,Balance Retraining,Discharge Planning, Neuromuscular Re-ed Other Recommendations and Next Treatment attempt to sit at EOB if pt Focus able and progress to stand at EOB Recommendations To Nursing Amount of Assist Needed Mechanical Lift Discharge Recommendations PT Discharge Recommendations SNF Rehab Transportation Needs at Discharge Stretcher/Ambulance
--- NOTE | 2024-01-08 10:26 | PC.NURSE ---
Patient refusing most care including turns, repositioning, and brief changes. Will become agitated, yelling out, demanding care team stop. Explained importance of incontinent care and preventing pressure wounds, patient's nuero status preventing understanding. Calm and compliant with medication administration and vital signs. remains at bedside.
--- NOTE | 2024-01-08 10:47 | OT.IP.EVAL ---
Past Medical History (Last Reviewed 01/06/24 @ 17:37 by Johnnie Nuñez MD) Abrasion of left heel Acquired hypothyroidism Alzheimer's dementia Aortic stenosis Arthritis Cataracts, bilateral (~1999) Chronic anticoagulation Chronic atrial fibrillation Eczema (~2014) Essential hypertension History of colon cancer History of left breast cancer History of subdural hematoma Impaired fasting glucose Mild cognitive impairment Mixed hyperlipidemia Obstructive sleep apnea Polyneuropathy, unspecified Tinnitus (~1999) Venous (peripheral) insufficiency Venous ulcer of right leg Surgical History (Last Reviewed 01/06/24 @ 17:37 by Johnnie Nuñez MD) Anesthesia History of colon surgery History of hysterectomy (~1979) History of thyroid surgery Occupational Therapy Inpatient Evaluation/Re-Eval M1 PT/OT-IP Prior Functional Status Start: 01/07/24 10:01 Freq: NEEDED Status: Active Protocol: Document 01/08/24 13:06 [facility] (Rec: 01/08/24 13:22 [facility] [id number]) Medical Review Prior Functional Status Medical History Reviewed Yes Diet/Fluid Consistency Regular Communication confused Mobility and Gait per pt amb w/FWW with him SBA. She does not move very much but they do leave the house daily to go for a drive and eat lunch in the car . pt goes down stairs w/ help and rail use. pt sleeps in recliner for several months d/t difficulty getting out of bed. Activities of Daily Living and IADL's helps her w/all ADLs except for set-up for eating, grooming and oral care needs. Pt is incontinent of bladder and able to sit to the toilet for bowel movement so he helps her clean up and change briefs and is unable to shower so does sponge baths with pt. Indep w/eating but reports eats very little Social History Household Members spouse Living Arrangements House Number of Floors (Floors) One Floor Number of Stairs To Enter/Railing? 4 PETER w/Rail Home Environment Standard Height Toilet,Tub/ Shower Home Equipment Front Wheel Walker,Raised Toilet Seat w/Armrests M2 OT-IP Current Condition Start: 01/08/24 13:03 Freq: Status: Active Protocol: Document 01/08/24 13:06 [facility] (Rec: 01/08/24 13:22 [facility] [id number]) Occupational Therapy Current Condition Current Condition Evaluation Date 01/08/24 Treatment Diagnosis Left shoulder and LLE pain. Diagnosis Onset Date 01/06/24 M3 OT- IP Subjective and Pain Start: 01/08/24 13:03 Freq: Status: Active Protocol: Document 01/08/24 13:06 [facility] (Rec: 01/08/24 13:22 [facility] [id number]) OT- Subjective Occupational Therapy Visit Type Type Initial Evaluation Visit Start Time 10:11 Visit Stop Time 10:47 Occupational Therapy Visit Comments Patient Comments Pt needing lots of encouragement from her , therapist and nurse to try to get up. Patient/Caregiver Goals To get better. OT Pain Assessment Pain When Pain Assessed During Mobility Pain Present Pain Present Pain Reported Location left leg Pain Behaviors Calling Out,Facial Grimacing, Moaning,Wincing M4 OT- IP ADL's Start: 01/08/24 13:03 Freq: Status: Active Protocol: Document 01/08/24 13:06 [facility] (Rec: 01/08/24 13:22 [facility] [id number]) OT [id number] Comments OT Self-Feeding Comments Not at meal time. OT ADL-Grooming Comments OT Grooming Comments Not performed. OT ADL-Oral Care Comments Oral Care Comments Not performed. OT ADL-Dressing General Eval Lower Body Dressing Ability Total Assistance Areas Needing Assistance Socks Comments OT Dressing Comments Pt's able to put compression wraps on her legs. OT ADL-Toileting General Evaluation Toileting Ability Total Assistance Comments OT Toileting Comments Pt use of Purewick. OT ADL-Bathing Comments OT Bathing Comments Not performed. M5 OT- IP IADL's Start: 01/08/24 13:03 Freq: Status: Active Protocol: Document 01/08/24 13:06 [facility] (Rec: 01/08/24 13:22 [facility] [id number]) OT-Instrumental Activities of Daily Living Deficits IADL Deficits Identified Deficits Home Safety Awareness Awareness of Need for Assistance at Home Decreased Awareness Ability to Problem Solve Emergency Unable to Problem Solve Situations Medication Management Medication Management Caregiver Administers Money Management Money Management Caregiver Provides Assistance Meal Preparation Meal Preparation Caregiver Provides Assist Window/Distribution Clerk Window/Distribution Clerk Caregiver Provides Assist Driving Driving Caregiver Provides Assist M6 OT- IP Functional Cognition Start: 01/08/24 13:03 Freq: Status: Active Protocol: Document 01/08/24 13:06 [facility] (Rec: 01/08/24 13:22 [facility] [id number]) Cognitive Factors Limiting Selfcare Function Cognitive Ability Level of Alertness Confusional State Patient Orientation Name Attention Span Ability Unable to Focus,Unable to Sustain Attention Ability to Follow Commands Able to Follow One Step Commands with Increased Time, Able to Follow One Step Commands with Repetition Memory Description Short Term Impaired,Hearing Screen Coordinator Impaired,Working Impaired Cognitive Comments Cognitive Assessment Comments Pt not able to understand the importance to try to get out of bed at this time. Pt needing concrete cues to follow. Pt also needing encouragement from the nurse to move as initially not wanting the therapists to move her up in the bed for better positioning needs for her back . OT- Vision and Hearing OT- Vision Assessment Visual Acuity Glasses For Reading M7 OT- IP Mobility and Balance Start: 01/08/24 13:03 Freq: Status: Active Protocol: Document 01/08/24 13:06 [facility] (Rec: 01/08/24 13:22 [facility] [id number]) OT- Bed Mobility Assessment Supine to Sit Supine to Sit Assist Maximum Assistance,2 Person Assistance Sit to Supine Sit to Supine Assist Total Assistance,2 Person Assistance OT- Balance Assessment Sitting Balance and Reactions Static Sitting Balance Ability Poor Dynamic Sitting Balance Ability Poor Standing Balance and Reactions Static Standing Balance Ability Poor Dynamic Standing Balance Ability Poor Comments Other Balance Tests/Deviations/Treatment MODA to MAX AX 1 to help sit : on the edge of the bed. Pt sits with very flexed posture and neck lateral and forwardly flexed. Pt having a fear to fall off the bed. M8 OT- IP Objective Assessments Start: 01/08/24 13:03 Freq: Status: Active Protocol: Document 01/08/24 13:06 [facility] (Rec: 01/08/24 13:22 [facility] [id number]) OT Strength Comments Strength Comments At least 3-/5. M9 OT- IP Assessment and Plan Start: 01/08/24 13:03 Freq: Status: Active Protocol: Document 01/08/24 13:06 [facility] (Rec: 01/08/24 13:22 [facility] [id number]) OT Summary Assessment and Plan Potential Rehabilitation Potential Fair Analytic Complexity at Evaluation Moderate Summary OT Impairments Pain,Range of Motion,Strength, Balance,Functional Cognition, Functional Mobility,Self- Feeding,Grooming,Dressing, Toilet Transfers,Shower Transfers,Activity Tolerance Progress Towards Goals Slow Progress due to Pain,Slow Progress due to Medical Issues,Slow Progress due to Activity Tolerance,Slow Progress due to Cognition Assessment Summary Pt MOD complexity and main barriers are pain, steps, and now not able to stand and would need mechanical lift for all mobility needs. Pt will benefit from skilled rehab to maximize level of mobility as prior pt able to stand with her lift chair and was able to walk and transfer 10ft with FWW to the toilet, chair with assist from her . Pending progress, pt may also need LTC afterwards. Prior pt's able to assist with all her ADL needs. Goals Self-Feeding Goal Standby Assistance Grooming Goal Standby Assistance Toilet Transfer Goal Moderate Assistance Days to Meet Goals 30 Frequency of Treatment Frequency Of Treatment Once a Day Treatment Plan OT Treatment Plan ADL Training,Functional Mobility,Patient/Family Education,Discharge Planning Other Treatment Recommendations and Next Transfer to [facility] with MAX AX 2. Treatment Focus Discharge Recommendations OT Discharge Recommendations SNF Rehab,LTAC Transportation Needs at Discharge Stretcher/Ambulance
[2024-01-08] MEDS: cefTRIAXone 2,000 MG in SODIUM CHLORIDE 0.9% 100 ML 200 MG IV (11:05)
--- NOTE | 2024-01-08 11:37 | CM.DPNOTE ---
DCP Cont [facility] has a female bed this weekend; Lyla at [facility] will begin SNF auth request today through [employer] [facility]. CM team following closely. Will plan to update spouse. RHONDA
[2024-01-08 12:00] VITALS: BP 129/36; PULSE 92; RESP 20; TEMP 36.1; O2SAT 94
[2024-01-08] MEDS: ACETAMINOPHEN 325 MG TABLET 650 MG PO (12:25)
--- NOTE | 2024-01-08 14:47 | PM.PN.1 ---
Subjective Subjective Date Patient Seen: 01/08/24 Time Patient Seen: 13:00 Interval history: The patient was up and took a few steps with physical therapy earlier, those very weak and sleepy. She opens her eyes to questions and quickly falls back asleep in the afternoon. Exam Vital Signs (past 8 hours): - 01/08/24 08:00 01/08/24 08:25 01/08/24 12:00 Temperature 97.9 F 96.9 F L Pulse Rate 125 H 92 H Respiratory Rate 19 20 Blood Pressure 151/85 H 154/79 H 129/36 L Pulse Oximetry 95 94 Oxygen Flow Rate 0 Oxygen Delivery Method Room Air Oxygen Flow Rate 0 Narrative Exam Narrative: GENERAL: This is a well-nourished, well-developed patient, in no apparent distress, sleepy. EYES: Pupils equal round and reactive. Extraocular motions intact. ENT: Mucous membranes pink and moist. NECK: Neck with significant stiffness, tilted to the left and kyphosis. CARDIOVASCULAR: Regular rate and rhythm without murmurs, gallops, or rubs. RESPIRATORY: Clear to auscultation. GASTROINTESTINAL: Abdomen soft, non-tender, nondistended. EXTREMITIES: No clubbing, cyanosis, or edema. NEUROLOGIC: Alert, oriented, speech fluent, full upper and lower motor strength, no focal deficits evident. Reflexes 2+ symmetric without spasticity. DERMATOLOGIC: No rashes or skin lesions. Objective Labs 01/08/24 04:15 01/08/24 04:15 Labs: Laboratory Results - last 24 hr 01/08/24 04:15 WBC 15.7 H RBC 3.89 L Hgb 11.9 L Hct 35.6 L MCV 91.5 MCH 30.5 MCHC 33.4 RDW 14.5 Plt Count 212 Neut % (Auto) 80.1 H Lymph % (Auto) 7.9 L [place] % (Auto) 11.6 Eos % (Auto) 0.3 L Baso % (Auto) 0.1 Neut # (Auto) 67449 H Lymph # (Auto) 1200 [place] # (Auto) 1800 H Eos # (Auto) 0 Baso # (Auto) 0 Sodium 130 L Potassium 4.1 Chloride 97 L Carbon Dioxide 28 BUN 13 Creatinine 0.42 L Estimated GFR > 60 BUN/Creatinine Ratio 31.0 H Glucose 132 H Calcium 8.7 PFSH Medical History Alzheimer's dementia Venous ulcer of right leg Mild cognitive impairment Abrasion of left heel Aortic stenosis Venous (peripheral) insufficiency History of colon cancer Obstructive sleep apnea History of left breast cancer Polyneuropathy, unspecified Acquired hypothyroidism Impaired fasting glucose Mixed hyperlipidemia Essential hypertension History of subdural hematoma Chronic anticoagulation Chronic atrial fibrillation Eczema (~2015) Tinnitus (~1999) Cataracts, bilateral (~1999) Arthritis Surgical History Anesthesia History of colon surgery History of thyroid surgery History of hysterectomy (~1979) Family History Mother Cancer Father Heart disease Sister Cancer Social History marital status: household members: spouse Smoking Status: Former smoker alcohol intake: current substance use type: does not use Assessment & Plan Assessment & Plan narrative: 1. Weakness, present on admission and active, possibly due to urinary tract infection 2. Urinary tract infection, culture growing negative bacilli. Treat with IV ceftriaxone 3. Recent fall, present on admission and active. 4. Atrial fibrillation, present on admission and active. 5. Chronic anticoagulation with recent fall, present on admission and active. 6. Hypothyroidism, present on admission and active. 7. Cognitive impairment consistent with moderately advanced dementia, present on admission and active. 8. Neck stiffness, likely cervical strain. Symptomatic care. Plan: -ceftriaxone IV daily for 3 days -Telemetry -discontinued anticoagulation given high fall risk. -physical therapy and occupational therapy -symptomatic care for cervical strain. -discharge planning. She was admitted to observation status, but remains profoundly weak and unable to stand likely due to urinary infection. She requires more than 2 midnights. Full resuscitation. POLST form and code status discussed again today and the remains ambivalent. Proxy decision maker is . Time-Based Coding :: [TOTAL MINUTES] spent with patient and on the chart (including review of chart, obtaining history, exam, reviewing outside data, placing orders, documenting exam and treatment plan, and counseling patient) on [DATE]. Quality VTE Deep Vein Thrombosis/Pulmonary Embolism Present on Admission: No IH PROFEE Charge codes Subsequent inpatient/observation care: 74922
--- NOTE | 2024-01-08 15:39 | DIET.CONS ---
Dietary Consultation Note Admission Date: 01/06/2024 17:10 Assessment: 88 y F admitted after fall. PMH of dementia. Nutrition screened for low MNA. Met with pt and spouse at bedside. Spouse reports decrease in po intakes starting after 2020. Diet recall varies, unfinished plate/smaller amounts of each meal than usual before 2020. Has not noticed any weight changes. NFPE not appropriate at this time. Ht: 167.64 cm Wt: 88.5 kg BMI: 31.4 UBW: 94.347 kg on 04/20/23 (6% weight loss in 9 months, non-significant) Last BM: 01/08/24 (01/08/24 05:37) MNA: 10 Devyn Score: 15 Diet: 01/06/24 Dinner General (Regular) Diet Diet Modifications: Nutrition Percent Meal Consumed 25% 01/07/24 18:00 Percent Meal Consumed 25% 01/07/24 13:05 Percent Meal Consumed 50% 01/07/24 09:00 Labs: RBC 3.89 X10^6/uL (4.0-5.2) L 01/08/24 04:15 Hgb 11.9 g/dL (12.0-16.0) L 01/08/24 04:15 Hct 35.6 % (36-46) L 01/08/24 04:15 Creatinine 0.42 mg/dL (0.52-1.04) L 01/08/24 04:15 Nutrition Diagnosis: Inadequate oral intake r/t decreased ability to consume adequate intake aeb recorded po intakes 25-50% Interventions: -ONS BID Monitoring/Evaluations: po intakes Electronically Signed by: Elyssa Sahni 01/08/24 15:39 Clinical Dietitian [address] [address]
[2024-01-08 16:00] VITALS: BP 132/63; PULSE 119; RESP 21; TEMP 35.9; O2SAT 96
[2024-01-08 20:00] VITALS: BP 130/79; PULSE 108; RESP 20; TEMP 36.4; O2SAT 94
[2024-01-09 00:01] VITALS: BP 139/78; PULSE 106; RESP 18; TEMP 36.3; O2SAT 93
[2024-01-09 04:09] VITALS: BP 147/88; PULSE 115; RESP 20; TEMP 36.5; O2SAT 90
[2024-01-09 08:00] VITALS: BP 129/73; RESP 18; TEMP 36.2; O2SAT 90
[2024-01-09] MEDS: dilTIAZem CD 120 MG CAP 240 MG PO (08:59)
[2024-01-09] MEDS: METOPROLOL IR 50 MG TABLET PO ×2 (08:59→20:58)
[2024-01-09] MEDS: SODIUM CHLORIDE 0.9% FLUSH 10 ML IV ×2 (08:59→20:58)
--- NOTE | 2024-01-09 09:30 | PT.IPTN ---
Physical Therapy Treatment Note M2 PT-IP Current Condition Start: 01/07/24 10:01 Freq: NEEDED Status: Active Protocol: Document 01/07/24 10:01 [facility] (Rec: 01/07/24 10:28 [facility] [id number]) Physical Therapy Current Condition Current Condition Evaluation Date 01/07/24 Treatment Diagnosis L leg/shoulder pain; weakness M3 PT-IP Subjective Start: 01/07/24 10:01 Freq: NEEDED Status: Active Protocol: Document 01/09/24 09:30 AB (Rec: 01/09/24 13:11 AB [id number]) Subjective Physical Therapy Visit Type Type Treatment Note Visit Start Time 09:30 Visit Stop Time 10:00 Number of ARTIST MANNEQUIN COLORING Visits 0 M4 PT-IP Mobility and Gait Start: 01/07/24 10:01 Freq: NEEDED Status: Active Protocol: Document 01/09/24 09:30 AB (Rec: 01/09/24 13:11 AB [id number]) PT-Transfer Assessment Sit to and From Stand Sit to and from Stand Maximum Assistance,Total Assistance,2 Person Assistance ,Use of Upper Extremities Equipment Transfer Assistive Device Gait Belt,Front Wheeled Walker Orthotic/Prosthetic Devices or Brace: No Comments Mobility Comments nurse stated that pt wants to go back to bed. checked on pt and pt sitting on the chair. spouse in room. pt with forward head posture with increase lateral flexion to the L. informed pt regarding head positioning. assisted pt with positioning of head. attempted cervical ROM, myofascial release and stretching of neck but pt unable to tolerate. pt initially stated that she wants to go back to bed but after a few seconds, stated that she will stay up on the chair. instructed pt to stand. pt attempted sit <>stand x 3 requiring max A x2 to total A x 2 and pt unable to get to full upright position and only able to stand for ~ 1-2 seconds needing to sit back down. pt wanting to just stay up on the chair after sit to stand. repositioned on the chair. call light and table placed within reach. M5 PT-IP Objective Assessments Start: 01/07/24 10:01 Freq: NEEDED Status: Active Protocol: Document 01/07/24 10:01 [facility] (Rec: 01/07/24 10:28 [facility] [id number]) Orientation Orientation/Cognition Level of Alertness Confusional State Orientation Name,Birthday Safety Awareness Decreased Safety Awareness Memory Description Short Term Impaired,Usp Impaired Gross Range of Motion Lower Extremity ROM Assessment Bilaterally Impaired Impairments pt unable to do any AROM of LEs w/commands and w/PROM pt c /o significant pain B Strength Lower Extremity Strength Assessment Bilaterally Impaired Sensation Assessment Comments Sensation Comments noted LLE had more firm feel and noted this to RN M6 PT-IP Treatment Start: 01/07/24 10:01 Freq: NEEDED Status: Active Protocol: Document 01/09/24 09:30 AB (Rec: 01/09/24 13:11 AB [id number]) Physical Therapy Treatment Education Education Provided Safety M7 PT-IP Assessment and Plan Start: 01/07/24 10:01 Freq: NEEDED Status: Active Protocol: Document 01/09/24 09:30 AB (Rec: 01/09/24 13:11 AB [id number]) PT Summary Assessment and Plan Potential Rehabilitation Potential Fair Summary Impairments Pain,ROM,Strength,Balance, Coordination,Sensation,Tone, Cognition,Bed Mobility, Transfers,Gait,Activity Tolerance Progress Towards Goals Slow Progress - Other Assessment Summary pt requiring max A x 2 to total A x 2 for sit to stand and unable to stand upright and unable to tolerate standing despite max A x 2 to to total A x 2 provided. pt will require SNF rehab to improve overall strength and mobility. Goals Bed Mobility Goal Moderate Assistance Transfer Goal Moderate Assistance,Front Wheeled Walker Gait Goal Moderate Assistance,Front Wheel Walker Gait Distance 50ft Other Goals Pt will be able to go up/down 4 steps w/rail and mod A Days to Meet Goals 10 Frequency of Treatment Frequency Of Treatment Once a Day Treatment Plan Physical Therapy Treatment Plan Bed Mobility Training,Transfer Training,Gait Training, Therapeutic Exercise,Balance Retraining,Discharge Planning, Neuromuscular Re-ed,Manual Therapy Recommendations To Nursing Amount of Assist Needed Mechanical Lift Discharge Recommendations PT Discharge Recommendations SNF Rehab Transportation Needs at Discharge Wheelchair/Cabulance,Stretcher /Ambulance
--- NOTE | 2024-01-09 10:57 | P.PN_ITS ---
Subjective Subjective Date Patient Seen: 01/09/24 Time Patient Seen: 09:05 Interval history: The patient remains very weak, 2 person max assist. She is seen with her at bedside. He wishes to address code status today. Team rounds conducted with nursing, pharmacy, social work, discharge planning today Exam Vital Signs (past 8 hours): - 01/09/24 04:09 01/09/24 08:00 Temperature 97.7 F 97.2 F L Pulse Rate 115 H Respiratory Rate 20 18 Blood Pressure 147/88 H 129/73 Pulse Oximetry 90 L 90 L Oxygen Delivery Method Room Air Oxygen Flow Rate 0 Narrative Exam Narrative: GENERAL: This is a well-nourished, well-developed patient, in no apparent distress, alert. EYES: Pupils equal round and reactive. Extraocular motions intact. ENT: Mucous membranes pink and moist. NECK: Neck with significant stiffness, tilted to the left and kyphosis. CARDIOVASCULAR: Regular rate and rhythm without murmurs, gallops, or rubs. RESPIRATORY: Clear to auscultation. GASTROINTESTINAL: Abdomen soft, non-tender, nondistended. EXTREMITIES: No clubbing, cyanosis, or edema. NEUROLOGIC: Alert, oriented to person and place, speech fluent, full upper and lower motor strength, no focal deficits evident. Reflexes 2+ symmetric without spasticity. DERMATOLOGIC: No rashes or skin lesions. Objective Labs 01/08/24 04:15 01/08/24 04:15 [facility] Medical History (Updated 01/09/24 @ 11:00 by Miguel Angel Phelps MD) Do not resuscitate Alzheimer's dementia Venous ulcer of right leg Mild cognitive impairment Abrasion of left heel Aortic stenosis Venous (peripheral) insufficiency History of colon cancer Obstructive sleep apnea History of left breast cancer Polyneuropathy, unspecified Acquired hypothyroidism Impaired fasting glucose Mixed hyperlipidemia Essential hypertension History of subdural hematoma Chronic anticoagulation Chronic atrial fibrillation Eczema (~2014) Tinnitus (~1999) Cataracts, bilateral (~1999) Arthritis Surgical History Anesthesia History of colon surgery History of thyroid surgery History of hysterectomy (~1979) Family History Mother Cancer Father Heart disease Sister Cancer Social History marital status: household members: spouse Smoking Status: Former smoker alcohol intake: current substance use type: does not use Assessment & Plan Assessment and plan (1) Do not resuscitate: Status: Acute Assessment & Plan narrative: 1. Weakness, present on admission and active, possibly due to urinary tract infection 2. Urinary tract infection, culture growing negative bacilli. Treated with IV ceftriaxone through 01/10/2024. Monitor leukocytosis. 3. Recent fall, present on admission and active. 4. Atrial fibrillation, present on admission and active. 5. Chronic anticoagulation with recent fall, present on admission and active. 6. Hypothyroidism, present on admission and active. 7. Cognitive impairment consistent with moderately advanced dementia, present on admission and active. 8. Neck stiffness, likely cervical strain. Symptomatic care. 9. Code status: Do not resuscitate. Advanced care planning reviewed today. Advanced directives reviewed and discussed regarding end-of-life care that the patient wishes to have respected. At least 16 minutes was spent in assessment and discussion in the full context of the patient's expressed wishes and medical conditions, excluding time spent in the routine medical follow-up visit. After discussion today with the patient and her of the patient's medical condition and generally poor statistics regarding successful resuscitation at the patient's age and cormorbidities, the patient decides on Do Not Resuscitate status today. The patient expresses understanding regarding the implications of this decision. The POLST form is completed reflecting this directive to healthcare providers. Plan: -ceftriaxone IV daily for 3 days through 01/10/2024 -Telemetry -discontinued anticoagulation given high fall risk. -physical therapy and occupational therapy -symptomatic care for cervical strain. -discharge planning for SNF anticipated on 01/10/2024 She was admitted to observation status, but remains profoundly weak and unable to stand likely due to urinary infection and changed to inpatient status She requires more than 2 midnights. Full resuscitation. POLST form and code status discussed again today and the remains ambivalent. Proxy decision maker is . Time-Based Coding :: [TOTAL MINUTES] spent with patient and on the chart (including review of chart, obtaining history, exam, reviewing outside data, placing orders, documenting exam and treatment plan, and counseling patient) on [DATE]. Quality VTE Deep Vein Thrombosis/Pulmonary Embolism Present on Admission: No PROFEE Charge codes Subsequent inpatient/observation care: [id number]
[2024-01-09 12:00] VITALS: BP 152/76; PULSE 103; RESP 19; TEMP 36.1; O2SAT 94
[2024-01-09] MEDS: cefTRIAXone 2,000 MG in SODIUM CHLORIDE 0.9% 100 ML 200 MG IV (13:18)
[2024-01-09 16:00] VITALS: BP 135/51; PULSE 112; RESP 18; TEMP 36.2; O2SAT 95
[2024-01-09 20:00] VITALS: BP 156/67; PULSE 122; RESP 23; TEMP 35.9; O2SAT 93
[2024-01-10] VITALS: BP 130/72; PULSE 124; RESP 22; TEMP 35.8; O2SAT 97
[2024-01-10 04:00] VITALS: BP 114/61; PULSE 102; RESP 17; TEMP 35.6; O2SAT 92
[2024-01-10 06:28] LABS: Add Manual Diff / Slide Review NO; Basophils Absolute Auto 0 /uL (0-100); Basophils Percent Auto 0.1 % (0-2); Eosinophils Absolute Auto 100 /uL (0-450); Eosinophils Percent Auto 0.4 % (2-4); Hematocrit 32.7 % (36-46); Hemoglobin 10.9 g/dL (12.0-16.0); Lymphocytes Absolute Auto 1300 /uL (1100-4500); Lymphocytes Percent Auto 8.1 % (25-40); Mean Corpuscular HGB Conc 33.4 % (30-36); Mean Corpuscular Hemoglobin 30.5 PG (26-34); Mean Corpuscular Volume 91.2 fL (80-100); Monocytes Absolute Auto 1800 /uL (0-900); Monocytes Percent Auto 11.2 % (3-14); Neutrophils Absolute Auto 12900 /uL (1500-7000); Neutrophils Percent Auto 80.2 % (50-75); Platelet Count 238 X10^3/uL (150-400); Red Blood Cell Count 3.59 X10^6/uL (4.0-5.2); Red Cell Distribution Width 14.4 % (11.6-14.8)
[2024-01-10 06:32] LABS: Blood Urea Nitrogen 22 mg/dL (7-17); Calcium 8.6 mg/dL (8.4-10.2); Carbon Dioxide 30 mmol/L (22-32); Chloride 100 mmol/L (98-107); Estimated Glomerular Filt Rate > 60 mL/min (>60); Glucose 131 mg/dL (80-110); HEMOLYSIS < 15 (0-50); Potassium 4.2 mmol/L (3.4-5.1); Sodium 132 mmol/L (137-145)
[2024-01-10 08:00] VITALS: BP 133/73; PULSE 116; RESP 19; TEMP 35.9; O2SAT 91
[2024-01-10] MEDS: METOPROLOL IR 50 MG TABLET PO (09:00)
[2024-01-10] MEDS: SODIUM CHLORIDE 0.9% FLUSH 10 ML IV (09:00)
[2024-01-10] MEDS: dilTIAZem CD 120 MG CAP 240 MG PO (09:00)
[2024-01-10] MEDS: cefTRIAXone 2,000 MG in SODIUM CHLORIDE 0.9% 100 ML 200 MG IV (10:06)
--- NOTE | 2024-01-10 10:42 | CM.DPNOTE ---
DCP Note HYDRAULIC ELEVATOR CONSTRUCTOR reviewed EMR. Per hospitalist, cleared for dc today. Per [facility], able to take pt at 1100 today to [facility]. HYDRAULIC ELEVATOR CONSTRUCTOR gave RN report number/updated nursing/UNDERGROUND UTILITY LOCATOR. HYDRAULIC ELEVATOR CONSTRUCTOR scanned/emailed PASRR/dc order to [facility]. Placed PASRR and signed meds in chart. HYDRAULIC ELEVATOR CONSTRUCTOR met with pt and spouse in room. Updated on plan. Answered questions to best of ability. P: anticipate dc to [facility] today at 1100. CM team will continue to follow as needed. JUAN JOSE Gonzalez
--- NOTE | 2024-01-10 11:29 | PC.NURSE ---
IV discontinued. Pt and spouse agreeable to discharge plan after some education to pt on reasoning for rehab. Pt assisted to facility w/c for discharge to via monique lift. Pt wheeled by facility farm loan representative to facility vehicle at approximately 1110 with spouse. report given to receiving nurse.
--- NOTE | 2024-01-10 11:51 | P.DS_ITS ---
History of Present Illness History of Present Illness Date Patient Seen: 01/10/24 Time Patient Seen: 07:45 Date of Onset of Symptoms: 01/06/24 Chief complaint: L Leg/Shoulder pain Narrative: Patient is an 88-year-old female. Is on anticoagulation. She was brought in by EMS for evaluation of left leg pain and left shoulder pain. Yesterday the patient and her who is at bedside fell down some stairs in their garage. Patient has been states that the patient did not hit her head. No loss of consciousness. They were able to get up afterwards. They did go out and do some things after the fall. He was when they returned home with the patient's had a difficult time getting her out of the vehicle. He stated that she actually slept in the vehicle last night and this morning he tried to get her out again and was unable to do so. This is when EMS brought her in. Here in the ER the patient denies any specific symptoms. Patient's states that she does have some memory issues. He stated that she was complaining of left leg pain when she was trying to get out of the car. There was also some reports of left shoulder pain although the patient denies any discomfort in these areas. She denies chest pain, shortness of breath, abdominal pain. She has cognitive impairment. She has not really remember much about the last 24 hours but apparently after they both fell down in the garage and then went for a drive she was unable to get out of the car later in the day. Her tried to get out of the car 2 additional times and then this morning still could not get her out. She was essentially sitting in her own urine overnight in the car and ultimately he called 911 and they brought her to the hospital. She appears to be having pain from his perspective in her left hip and leg pain, possibly her back but she can not articulate this. When asked tonight what is hurting she really can not articulate that either. She denies chest pain, or dyspnea. She does not know what city she was in her what year it is. She and her have been for about 60 years. Discharge Providers Provider Date of admission: 01/06/24 17:10 Discharge Date: 01/10/24 Primary care physician: Miguel Angel Phelps MD Consults: 01/06/24 17:24 Consult to Occupational Therapy Evaluate & Treat Comment: Physician Instructions: Evaluate and treat Consult to Physical Therapy Evaluate & Treat Comment: Physician Instructions: Evaluate and Treat Discharge provider: Miguel Angle Phelps MD Summary Hospital Course Discharge Diagnosis: 1. Weakness, present on admission and active, possibly due to urinary tract infection 2. Urinary tract infection, culture E.coli, treated with IV ceftriaxone through 01/10/2024 3. Recent fall 4. Atrial fibrillation 5. Chronic anticoagulation with recent fall 6. Hypothyroidism 7. Cognitive impairment consistent with moderately advanced dementia 8. Neck stiffness, likely cervical strain. 9. Code status: Do not resuscitate. Hospital Course: The patient was admitted, hydrated intravenously, treated for urinary infection. She remained profoundly weak requiring 2 person assist and half-way facility was felt appropriate for rehabilitation before possible discharge home with home support services versus memory care facility. Code status was discussed and defined is do not resuscitate during the hospitalization. No other issues arose. Status at Discharge Cognitive/behavioral status at discharge: at baseline, confused Functional status at discharge: bed bound Overall status at discharge: patient is not back to baseline Time Spent with Patient Time spent: Less than 30 minutes Exam Vital Signs (past 8 hours): - 01/10/24 04:00 01/10/24 08:00 Temperature 96.1 F L 96.6 F L Pulse Rate 102 H 116 H Respiratory Rate 17 19 Blood Pressure 114/61 133/73 Pulse Oximetry 92 91 Oxygen Flow Rate 0 Oxygen Delivery Method Room Air Oxygen Flow Rate 0 Narrative Exam Narrative: GENERAL: This is a well-nourished, well-developed patient, in no apparent distress, alert. EYES: Pupils equal round and reactive. Extraocular motions intact. ENT: Mucous membranes pink and moist. NECK: Neck with significant stiffness, tilted to the left and kyphosis. CARDIOVASCULAR: Regular rate and rhythm without murmurs, gallops, or rubs. RESPIRATORY: Clear to auscultation. GASTROINTESTINAL: Abdomen soft, non-tender, nondistended. EXTREMITIES: No clubbing, cyanosis, or edema. NEUROLOGIC: Alert, oriented to person and place, speech fluent, symmetric upper and lower motor strength, profoundly weak and unable to stand. DERMATOLOGIC: No rashes or skin lesions. Objective Imaging Multiple: Radiologist's impression: Multiple studies:: Radiologist's impression: XR HIP: Bones: No fractures or dislocations. Asymmetric left greater than right hip joint osteoarthritis with near [id number] articulation at the lateral left hip joint. Pelvic ring appears intact. No suspicious bony lesions. Soft tissues: The visualized bowel gas pattern is normal. No suspicious soft tissue calcifications. XR FOOT LT MIN 3V Bones: No fractures or dislocations. No suspicious bony lesions. Soft tissues: No tibiotalar joint effusion. Achilles tendon appears normal. CT head: Low-attenuation as a new finding but potentially chronic subsequent to the [address] is noted within the right parietal area. MR scanning could accurately discriminate between chronic and acute or subacute etiology. No mass effect is associated, but the exact chronicity of this area of low attenuation is uncertain. No intracranial hemorrhage is found after trauma. C-spine CT: Stable multilevel degenerative disc disease and facet osteoarthritis with stable grade 1 anterolisthesis of C2 on C3. Labs 01/10/24 05:35 01/10/24 05:35 Labs: Laboratory Results - last 24 hr 01/10/24 05:35 WBC 16.0 H RBC 3.59 L Hgb 10.9 L Hct 32.7 L MCV 91.2 MCH 30.5 MCHC 33.4 RDW 14.4 Plt Count 238 Neut % (Auto) 80.2 H Lymph % (Auto) 8.1 L [place] % (Auto) 11.2 Eos % (Auto) 0.4 L Baso % (Auto) 0.1 Neut # (Auto) 33080 H Lymph # (Auto) 1300 [place] # (Auto) 1800 H Eos # (Auto) 100 Baso # (Auto) 0 Sodium 132 L Potassium 4.2 Chloride 100 Carbon Dioxide 30 BUN 22 H Creatinine 0.50 L Estimated GFR > 60 BUN/Creatinine Ratio 44.0 H Glucose 131 H Calcium 8.6 PFSH Medical History (Updated 01/09/24 @ 11:00 by Miguel Angel Phelps MD) Do not resuscitate Alzheimer's dementia Venous ulcer of right leg Mild cognitive impairment Abrasion of left heel Aortic stenosis Venous (peripheral) insufficiency History of colon cancer Obstructive sleep apnea History of left breast cancer Polyneuropathy, unspecified Acquired hypothyroidism Impaired fasting glucose Mixed hyperlipidemia Essential hypertension History of subdural hematoma Chronic anticoagulation Chronic atrial fibrillation Eczema (~2014) Tinnitus (~1999) Cataracts, bilateral (~1999) Arthritis Surgical History Anesthesia History of colon surgery History of thyroid surgery History of hysterectomy (~1979) Family History Mother Cancer Father Heart disease Sister Cancer Social History marital status: household members: spouse Smoking Status: Former smoker alcohol intake: current substance use type: does not use Discharge Plan Discharge Plan Patient Disposition: SNF Transfer to: [facility] Transportation: Wheelchair I certify the postop hospital half-way care is medically necessary on a continuing basis for any conditions for which he/ she received care during this hospitalization.: Yes The receiving facility has agreed to accept transfer and provide medical treatment.: Yes Discharge orders & Medications Prescriptions: Continued levothyroxine 125 mcg tablet 125 mcg PO QAM Qty: 90 3RF metoprolol tartrate 50 mg tablet 50 mg PO BID Qty: 180 3RF diltiazem HCl 240 mg capsule,extended release 24hr 240 mg PO QAM Qty: 90 3RF Eliquis 5 mg tablet 5 mg PO BID Qty: 180 3RF valsartan 160 mg tablet 160 mg PO DAILY Qty: 90 3RF atorvastatin [Lipitor] 20 mg tablet 20 mg PO DAILY Qty: 90 3RF sennosides [Senokot] 8.6 mg Tablet 8.6 mg DAILY acetaminophen 325 mg Tablet 650 mg PO TID calcium 600 mg Capsule 600 mg PO BID loratadine [Claritin] 10 mg Tablet 10 mg PO DAILY vitamin I44-[id number] acid 1,000-400 mcg Lozenge 1 shira SUBLINGUAL DAILY Follow up/Referrals: Miguel Angel Phelps MD [Primary Care Provider] - Visit Report/Discharge Packet Stand Alone Forms: Patient Portal/API, Stroke Signs & Symptoms Discharge Data Primary Care Provider: Miguel Angel Phelps V Attending Provider: Johnnie Nuñez Admit Date/Time: 01/06/24 17:10 Quality VTE Deep Vein Thrombosis/Pulmonary Embolism Present on Admission: No
== END 2024-01-10 11:10 | DRG 690 ==
LOC: ED 16:56 → AC 17:10
PROVIDERS: Admitting Provider Hospitalist; Emergency Provider Emergency Medicine; PCP Internal Medicine; Referring Provider Emergency Medicine; Visit Provider Hospitalist
DX: N39.0 Urinary tract infection, site not specified (principal); I48.91 Unspecified atrial fibrillation; E03.9 Hypothyroidism, unspecified; W18.30XA Fall on same level, unspecified, initial encounter; S16.1XXA Strain of muscle, fascia and tendon at neck level, initial encounter; B96.20 Unspecified Escherichia coli [E. coli] as the cause of diseases classified elsewhere; F03.B0 Unspecified dementia, moderate, without behavioral disturbance, psychotic disturbance, mood disturbance, and anxiety; I10 Essential (primary) hypertension; Z87.891 Personal history of nicotine dependence; Z66 Do not resuscitate; Z79.01 Long term (current) use of anticoagulants
CPT/HCPCS: 36415; 51701; 70450; 72125; 73502; 73630; 73650; 80048; 80053; 81001; 83690; 85025; 87077; 87086; 87186; 93005; 97163; 97166; 97530; 99284; G0378; J0696; J1630; J1644

== ENCOUNTER 2024-01-12 19:36 | Inpatient (IN) | payer MEDICARE, SELFPAY ==
[2024-01-06 18:02] VITALS: BMI 31.4
[2024-01-12] VITALS (31 sets, daily range): BP systolic 95–138; BP diastolic 61–90; PULSE 133–176; RESP 12–41; TEMP 37.2; O2SAT 90–95; BMI 34.1
--- NOTE | 2024-01-12 19:48 | EKG_ITS ---
[address] [address] Test Date: 2024-01-12 Pat Name: Rose Marie Blunt Department: Room: Gender: Female Sign Language Interpreter: shayy : 1935 Requested By: Order Number: [id number] Reading MD: Noel Jesus MD Measurements Intervals [place] Rate: 135 P: MS: QRS: -21 QRSD: 76 T: 113 QT: 310 QTc: 465 Interpretive Statements Atrial fibrillation with rapid ventricular response Low voltage QRS Cannot rule out Anteroseptal infarct , age undetermined Electronically Signed On 01-13-2024 8:54:48 PDT by Noel Jesus MD
--- NOTE | 2024-01-12 19:48 | DI.RAD.S_ITS ---
PROCEDURE: XR CHEST 1V INDICATIONS: Shortness of breath TECHNIQUE: One view of the chest was acquired. COMPARISON: [facility], CR, XR CHEST 1V, 05/23/2022, 18:01. FINDINGS: Surgical changes and devices: Surgical clips in the left axilla. Lungs and pleura: Small to moderate bilateral pleural effusions with subjacent atelectasis. No pneumothorax. Mediastinum: Mediastinal contours appear normal. Heart size is normal. Bones and chest wall: No suspicious bony lesions. Overlying soft tissues appear unremarkable. IMPRESSION: Small to moderate bilateral pleural effusions, left greater than right. Subjacent atelectasis. Approved by: Pauline Booth M.D.,Ph.D. on 01/12/2024 at 20:21
[2024-01-12] MEDS: ALBUTEROL/IPRATROPIUM 3 ML AMPUL 6 ML INH (19:59)
--- NOTE | 2024-01-12 19:59 | ED.GENADULT ---
HPI - General Adult General Chief complaint: Shortness of Breath/Dyspnea Stated complaint: Increased work of breathing Time Seen by Provider: 01/12/24 19:53 Source: patient, family, EMS, RN notes reviewed and old records reviewed Mode of arrival: EMS History of Present Illness HPI narrative: 88-year-old female with history of atrial fibrillation on anticoagulation, chronic weakness, recent hospitalization for UTI, hypothyroidism, dementia who is DNR/DNI. Patient was admitted received IV hydration for UTI and was discharged home to [facility] [place]. Patient herself has no complaints but family at bedside noted that her breathing or work of breathing seemed to be increased. Nursing at the facility noted she was in AFib RVR and was transported here. Patient herself has no complaints currently she does not appreciate any chest pain or shortness of breath, no cold cough or congestion symptoms. No nausea or vomiting. No issues with bowel movements or urination. Has not appreciate any new swelling in extremities. Family at bedside states that she did not appear to be having any discomfort did not complain of anything to them. Patient did receive 20 mg of diltiazem at route with EMS. Related Data Home Medications Medication Instructions Recorded Confirmed sennosides 8.6 mg tablet (Senokot) 8.6 mg DAILY 10/05/18 01/06/24 acetaminophen 325 mg tablet 650 mg PO TID 05/23/22 01/06/24 calcium 600 mg capsule 600 mg PO BID 05/23/22 01/06/24 loratadine 10 mg tablet (Claritin) 10 mg PO DAILY 05/23/22 01/06/24 vitamin B12 1,000 mcg-folic acid 1 shira sublingual DAILY 05/23/22 01/06/24 400 mcg sublingual lozenge Previous Rx's Medication Instructions Recorded levothyroxine 125 mcg tablet 125 mcg PO QAM #90 tabs 03/23/23 metoprolol tartrate 50 mg tablet 50 mg PO BID #180 tabs 04/03/23 diltiazem HCl 240 mg 240 mg PO QAM #90 caps 04/22/23 capsule,extended release 24 hr apixaban 5 mg tablet (Eliquis) 5 mg PO BID #180 tabs 07/10/23 atorvastatin 20 mg tablet (Lipitor) 20 mg PO DAILY #90 tabs 12/30/23 valsartan 160 mg tablet 160 mg PO DAILY #90 tabs 12/30/23 Allergies Allergy/AdvReac Type Severity Reaction Status Date / Time allopurinol Allergy Intermediate Fatigued Verified 01/06/24 17:38 Penicillins Allergy Mild RASH Verified 01/06/24 17:38 adhesive Allergy Unknown Verified 01/06/24 17:38 donepezil AdvReac Intermediate Diarrhea Verified 01/06/24 17:38 codeine AdvReac Unknown Verified 01/06/24 17:38 Review of Systems Review of Systems ROS Unobtainable: All systems reviewed & are unremarkable except as noted in HPI and below Patient History Medical History Do not resuscitate Alzheimer's dementia Venous ulcer of right leg Mild cognitive impairment Abrasion of left heel Aortic stenosis Venous (peripheral) insufficiency History of colon cancer Obstructive sleep apnea History of left breast cancer Polyneuropathy, unspecified Acquired hypothyroidism Impaired fasting glucose Mixed hyperlipidemia Essential hypertension History of subdural hematoma Chronic anticoagulation Chronic atrial fibrillation Eczema (~2014) Tinnitus (~1999) Cataracts, bilateral (~2000) Arthritis Surgical History Anesthesia History of colon surgery History of thyroid surgery History of hysterectomy (~1979) Family History Mother Cancer Father Heart disease Sister Cancer Social History marital status: household members: spouse Smoking Status: Former smoker alcohol intake: current substance use type: does not use Smoking Status: Former smoker alcohol intake frequency: a few times a week Substance Use Type: does not use Exam Narrative Exam Narrative: GENERAL: Alert and oriented, elderly female in mild distress HEENT: Head normocephalic, atraumatic, EOMI, pupils reactive, face symmetric, moist mucous membranes NECK: Supple, full range of motion CARDIOVASCULAR: Irregularly irregular rate and rhythm without murmurs, rubs or gallops. Trace edema bilateral lower extremities. No JVD. RESPIRATORY: Breath sounds diminished bilateral bases, no wheezes rales or rhonchi. Mild tachypnea, no accessory muscle use. Patient able to speak normally. ABDOMEN: Soft, nontender. Normoactive bowel sounds all 4 quadrants. No guarding or rebound, rigidity, no mass : No CVA tenderness EXTREMITIES: Normal range of motion, no clubbing or edema. Neurovascularly intact NEUROLOGICAL: Cranial nerves II through XII grossly intact. Moving all extremities SKIN: Warm, dry, no petechiae, no rashes or lesions. Initial Vital Signs Initial Vital Signs: Vital Signs Blood Pressure 112/77 01/12/24 19:42 Course Orders Ordered: ED Orders 01/12/24 20:50 Blood Culture Stat 01/12/24 22:40 Trop I [Troponin I] Stat 01/13/24 02:33 UA Complete [Urinalysis and Microscopic] Stat Amiodarone HCl/Dextrose (Nexterone) 360 mg in 200 mls @ 16.7 mls/hr IV CONT HEMAL; Protocol Stop: 01/13/24 16:59 Naloxone HCl (Naloxone 0.4 Mg/Ml Vial) 0.2 mg IV Q2MIN PRN PRN Reason: Opiate Reversal Discontinued Medications Albuterol/Ipratropium (Albuterol/Ipratropium 3 Ml Ampul) 6 ml INH NOW ONE Stop: 01/12/24 19:56 Last Admin: 01/12/24 19:59 Dose: 6 ml Documented By: LUISA Diltiazem HCl (Diltiazem 25 Mg/5 Ml Sdv) 10 mg IV NOW ONE Stop: 01/12/24 20:17 Last Admin: 01/12/24 20:49 Dose: 10 mg Documented By: [place] Furosemide (Furosemide 40 Mg/4 Ml Vial) 40 mg IV NOW ONE Stop: 01/12/24 21:18 Last Admin: 01/12/24 21:44 Dose: 40 mg Documented By: [place] Sodium Chloride (Normal Saline 0.9%) 1,000 mls @ 1,000 mls/hr IV BOLUS ONE Stop: 01/12/24 21:14 Last Infusion: 01/12/24 20:48 Dose: 0 mls/hr Documented By: Admin: 01/12/24 20:48 Dose: 1,000 mls/hr Documented By: [place] DILTIAZEM (Diltiazem 125 Mg/125 Ml-D5w) 125 mg in 125 mls @ 5 mls/hr IV TITRATE HEMAL; Protocol Last Titration: 01/12/24 22:27 Dose: Infused Documented By: Titration: 01/12/24 22:05 Dose: 2.5 mg/hr, 2.5 mls/hr Documented By: Admin: 01/12/24 21:45 Dose: 5 mg/hr, 5 mls/hr Documented By: [place] Amiodarone HCl/Dextrose (Nexterone) 360 mg in 200 mls @ 33.333 mls/hr IV NOW ONE; Protocol Stop: 01/13/24 04:13 Last Titration: 01/13/24 04:30 Dose: 0 mls/hr, 0 mls/hr Documented By: Admin: 01/12/24 23:12 Dose: 33.333 mls/hr, 33.33 mls/hr Documented By: [place] Amiodarone HCl/Dextrose (Nexterone) 150 mg in 100 mls @ 600 mls/hr IV NOW ONE; Protocol Stop: 01/12/24 22:23 Last Infusion: 01/12/24 23:12 Dose: Infused Documented By: Admin: 01/12/24 22:43 Dose: 300 mls/hr Documented By: [place] Amiodarone HCl/Dextrose (Nexterone) 360 mg in 200 mls @ 16.7 mls/hr IV CONT HEMAL; Protocol Stop: 01/13/24 16:29 Vital Signs Vital signs: Vital Signs - 8 hr 01/12/24 21:30 01/12/24 21:30 01/12/24 22:00 Pulse Rate 176 H 157 H Respiratory Rate 41 H 25 H Blood Pressure 122/90 01/12/24 22:00 01/12/24 22:04 01/12/24 22:04 Pulse Rate 160 H Respiratory Rate 28 H Blood Pressure 97/73 110/61 01/12/24 22:10 01/12/24 22:10 01/12/24 22:20 Pulse Rate 160 H 162 H Respiratory Rate 18 29 H Blood Pressure 116/83 01/12/24 22:20 01/12/24 22:30 01/12/24 22:30 Pulse Rate 170 H Respiratory Rate 25 H Blood Pressure 103/70 138/74 01/12/24 22:45 01/12/24 22:45 01/12/24 22:51 Pulse Rate 175 H 164 H Respiratory Rate 21 28 H Blood Pressure 128/87 01/12/24 22:51 01/12/24 22:56 01/12/24 22:56 Pulse Rate 156 H Respiratory Rate 22 Blood Pressure 126/67 111/80 01/12/24 23:00 01/12/24 23:00 01/12/24 23:05 Pulse Rate 160 H Respiratory Rate 12 Blood Pressure 120/74 115/73 01/12/24 23:05 01/12/24 23:09 01/12/24 23:10 Pulse Rate 156 H 152 H Respiratory Rate 17 13 Blood Pressure 114/71 01/12/24 23:10 01/12/24 23:15 01/12/24 23:15 Pulse Rate 154 H 159 H Respiratory Rate 22 17 Blood Pressure 100/64 01/12/24 23:20 01/12/24 23:20 01/12/24 23:25 Pulse Rate 159 H Respiratory Rate 26 H Blood Pressure 114/61 105/66 01/12/24 23:25 01/12/24 23:30 01/12/24 23:30 Pulse Rate 160 H 154 H Respiratory Rate 39 H 24 Blood Pressure 106/62 Medical Decision Making Lab Data 01/12/24 19:47 01/12/24 19:47 Labs: Lab Results 01/12/24 01/12/24 Range/Units 19:47 22:40 WBC 18.2 H (4.5-11.0) X10^3/uL RBC 3.71 L (4.0-5.2) X10^6/uL Hgb 11.0 L (12.0-16.0) g/dL Hct 33.9 L (36-46) % MCV 91.4 (80-100) fL MCH 29.7 (26-34) PG MCHC 32.5 (30-36) % RDW 14.4 (11.6-14.8) % Plt Count 358 (150-400) X10^3/uL Neut % (Auto) 76.9 H (50-75) % Lymph % (Auto) 11.0 L (25-40) % [place] % (Auto) 10.9 (3-14) % Eos % (Auto) 1.0 L (2-4) % Baso % (Auto) 0.2 (0-2) % Neut # (Auto) 12921 H (0203-4203) /uL Lymph # (Auto) 2000 (3717-0890) /uL [place] # (Auto) 2000 H (0-900) /uL Eos # (Auto) 200 (0-450) /uL Baso # (Auto) 0 (0-100) /uL PT 18.9 H (9.4-12.5) SECONDS INR 1.6 H (0.9-1.3) Sodium 137 (137-145) mmol/L Potassium 3.8 (3.4-5.1) mmol/L Chloride 103 (98-107) mmol/L Carbon Dioxide 34 H (22-32) mmol/L BUN 19 H (7-17) mg/dL Creatinine 0.52 (0.52-1.04) mg/dL Estimated GFR > 60 (>60) mL/min BUN/Creatinine Ratio 36.5 H (6-22) Glucose 118 H (80-110) mg/dL Lactate 1.3 (0.7-2.1) mmol/L Calcium 9.2 (8.4-10.2) mg/dL Total Bilirubin 1.3 (0.2-1.3) mg/dL AST 98 H (14-36) IU/L ALT 96 H (<35) IU/L Alkaline Phosphatase 109 (38-126) U/L Troponin I 0.023 0.020 (0.01-0.034) ng/mL NT-Pro-B Natriuret Pep 3250 H (<450) pg/mL Total Protein 6.8 (6.3-8.2) g/dL Albumin 3.5 (3.5-5.0) g/dL Globulin 3.3 (1.7-4.1) g/dL Albumin/Globulin Ratio 1.1 (1.0-2.8) Procalcitonin 0.170 (<0.5) ng/mL ECG Data Attestation: I personally reviewed and interpreted this ECG as follows: Prior ECG tracings: available for review Interpretation: AFib with a rapid ventricular response rate of 135 QRS is 76 QTC of 465. No acute ST elevation or depression noted. Patient has multiple EKGs showing atrial fibrillation back through 2007. Patient does not have any acute ST elevation appreciated but does have some depression lateral leads V5 and 6 appears new compared to most recent on 01/06/2024 MDM Narrative Medical decision making narrative: Labs show white count 18.2, hemoglobin of 11, platelets of 358, predominance of neutrophils, INR 1.6, sodium is 137 potassium 3.8 chloride 103 BUN is 19 with a normal renal function. CO2 is 34, glucose is 118, lactate 1.3, protocol is 0.170, troponins 0.023 with a BNP of 3250. AST ALT are 9896 with normal bilirubin. Troponin was repeated Chest x-ray shows [id number] bilateral pleural effusions [id number] subjacent atelectasis. EKG shows AFib with RVR Patient has not echo from 04/09/2023 which shows an EF of 60 65% but showed AFib with rates between 110 and 150s, severely reduced leaflet mobility of the aortic valve but could not truly assess aortic valve secondary to AFib RVR. Patient had severe biatrial enlargement. Patient initially seemed and diltiazem had minimal improvement of rate, patient was given Lasix has a workup came back. She did receive DuoNebs initially but had minimal improvement. Patient is DNR/DNI limited measures. She appears to chronically be in atrial fibrillation and likely would not benefit from cardioversion today. Discussed with patient and family goals of care. They would like proceed with rate control. Has been states she has had cardioversions in the past at least 3 that have all failed. Does not sound like she has a candidate for cardioversion. She is seen Cardiology once about a year ago did not have follow up in 6 months as she refused. Discussed with Dr. Luu, cardiology at [facility] recommends amiodarone drip. Repeat troponin is negative. Diltiazem was held and patient was started amiodarone, given 150 mg over 20 minutes to avoid hypotensive as patient has been 107 systolic frequently. Followed by drip. Spoke with Dr. Blanco, hospitalist accepts for inpatient. Patient is DNR/DNI per family and has a POLST form with her paperwork. Critical Care Time Critical Care Time Critical Care Time: Yes Total Critical Care Time: 45 Attestation: The high probability of a clinically significant, sudden or life threatening deterioration of the cardiac system(s) required my full and direct attention, intervention and personal management. The aggregate critical care time was [--] minutes. This time is in addition to time spent performing reported procedures but includes the following: [x] Data Review and interpretation [x] Patient assessment and monitoring of vital signs [x] Documentation [x] Medication orders and management Discharge Plan Departure Patient Disposition: Admitted As Inpatient Clinical Impression: Atrial fibrillation with rapid ventricular response, Congestive heart failure (CHF) Admit Date/Time: 01/12/24 23:32 Admit Provider: oPlo Blanco
[2024-01-12 20:00] LABS: Add Manual Diff / Slide Review NO; Basophils Absolute Auto 0 /uL (0-100); Basophils Percent Auto 0.2 % (0-2); Eosinophils Absolute Auto 200 /uL (0-450); Hematocrit 33.9 % (36-46); Lymphocytes Absolute Auto 2000 /uL (1100-4500); Mean Corpuscular HGB Conc 32.5 % (30-36); Mean Corpuscular Hemoglobin 29.7 PG (26-34); Mean Corpuscular Volume 91.4 fL (80-100); Monocytes Absolute Auto 2000 /uL (0-900); Monocytes Percent Auto 10.9 % (3-14); Neutrophils Absolute Auto 14000 /uL (1500-7000); Neutrophils Percent Auto 76.9 % (50-75); Platelet Count 358 X10^3/uL (150-400); Red Blood Cell Count 3.71 X10^6/uL (4.0-5.2); Red Cell Distribution Width 14.4 % (11.6-14.8); White Blood Cell Count 18.2 X10^3/uL (4.5-11.0)
[2024-01-12 20:05] LABS: INR 1.6 (0.9-1.3); Prothrombin Time 18.9 SECONDS (9.4-12.5)
[2024-01-12 20:09] LABS: Alanine Aminotransferase 96 IU/L (<35); Albumin 3.5 g/dL (3.5-5.0); Albumin Globulin Ratio 1.1 (1.0-2.8); Alkaline Phosphatase 109 U/L (38-126); Aspartate Aminotransferase 98 IU/L (14-36); BUN Creatinine Ratio 36.5 (6-22); Bilirubin Total 1.3 mg/dL (0.2-1.3); Blood Urea Nitrogen 19 mg/dL (7-17); Calcium 9.2 mg/dL (8.4-10.2); Carbon Dioxide 34 mmol/L (22-32); Chloride 103 mmol/L (98-107); Estimated Glomerular Filt Rate > 60 mL/min (>60); Globulin 3.3 g/dL (1.7-4.1); Glucose 118 mg/dL (80-110); HEMOLYSIS < 15 (0-50); Lactate (Lactic Acid) 1.3 mmol/L (0.7-2.1); Potassium 3.8 mmol/L (3.4-5.1); Sodium 137 mmol/L (137-145); Total Protein 6.8 g/dL (6.3-8.2)
[2024-01-12 20:21] LABS: NT-proBNP (BNP-Adult 18+) 3250 pg/mL (<450); Troponin I 0.023 ng/mL (0.01-0.034)
[2024-01-12] MEDS: SODIUM CHLORIDE 0.9% 1,000 ML 1000 ML IV (20:48)
[2024-01-12] MEDS: dilTIAZem 25 MG/5 ML SDV 10 MG IV (20:49)
[2024-01-12] MEDS: FUROSEMIDE 40 MG/4 ML VIAL IV (21:44)
[2024-01-12] MEDS: DILTIAZEM 125 MG/125 ML PIGGYBACK IV (21:45)
[2024-01-12] MEDS: AMIODARONE 150 MG/100 ML PIGGYBACK 300 MG IV (22:43)
[2024-01-12] MEDS: AMIODARONE 360 MG/200 ML PIGGYBACK 33.33 MG IV (23:12)
[2024-01-13] VITALS (33 sets, daily range): BP systolic 80–125; BP diastolic 52–84; PULSE 105–158; RESP 19–38; TEMP 36.2–36.9; O2SAT 90–99
--- NOTE | 2024-01-13 01:45 | PC.NURSE ---
Patient arrived from ED, alert, oriented x 4, Amiodarone drip ongoing, HR 152, BP 99/57, denies complaint of pain, unstageable sacral wound, pictures taken and uploaded, hospitalist on duty updated.
[2024-01-13 02:38] LABS: Appearance Urine UA CLEAR; Bilirubin Urine UA NEGATIVE (NEGATIVE); Color Urine UA YELLOW; Glucose Urine UA NEGATIVE (Negative); Ketones Urine UA NEGATIVE (NEGATIVE); Leukocyte Esterase Urine UA NEGATIVE (NEGATIVE); Nitrite Urine UA NEGATIVE (Negative); Occult Blood Urine UA NEGATIVE (Negative); Protein Urine UA NEGATIVE (Negative)
[2024-01-13 02:48] LABS: Bacteria Urine Occasional (0-1); Culture Indicated Urine Cult Not Indicated; RBC Urine None Seen (0-5/HPF); Squamous Epithelial Cell Urine 1-5 /HPF (0-5/HPF); Urine Volume 10mL (spun); WBC Urine 1-5/HPF (0-5/HPF)
[2024-01-13] MEDS: AMIODARONE 360 MG/200 ML PIGGYBACK 16.7 MG IV ×2 (05:00→15:36)
[2024-01-13 05:03] LABS: MRSA (Nasal) PCR NOT DETECTED (Not Detect)
--- NOTE | 2024-01-13 07:27 | PM.HP.1 ---
History of Present Illness History of Present Illness Date Patient Seen: 01/13/24 Time Patient Seen: 00:30 Chief complaint: Increased work of breathing Narrative: 88 years old female with a past medical history of hypertension, aortic stenosis, limits dementia, chronic anticoagulation and multiple other medical issues including recent hospitalization for weakness possibly due to urinary tract infection now was brought back to the emergency room for shortness of breath and palpitations as noticed by family. Patient is confused and unable to give a good history. She denies any chest pain or shortness of breath. Denies any palpitations. Nursing at the facility noted she was not A-fib with rapid ventricular rate. In the ED was noted to be tachycardic with a pulse in the 160s. Initially received IV Cardizem with little change in the heart rate. Cardiology were consulted and apparently patient has had cardioversions in the past multiple times sotalol failed not a candidate for cardioversion. Reviewed with cardiology Dr. Luu who recommended amiodarone drip. Patient was initiated on amiodarone drip and admitted for further evaluation [facility] Medical History Do not resuscitate Alzheimer's dementia Venous ulcer of right leg Mild cognitive impairment Abrasion of left heel Aortic stenosis Venous (peripheral) insufficiency History of colon cancer Obstructive sleep apnea History of left breast cancer Polyneuropathy, unspecified Acquired hypothyroidism Impaired fasting glucose Mixed hyperlipidemia Essential hypertension History of subdural hematoma Chronic anticoagulation Chronic atrial fibrillation Eczema (~2014) Tinnitus (~1999) Cataracts, bilateral (~2000) Arthritis Surgical History Anesthesia History of colon surgery History of thyroid surgery History of hysterectomy (~1979) Family History Mother Cancer Father Heart disease Sister Cancer Social History marital status: household members: spouse Smoking Status: Former smoker alcohol intake: current substance use type: does not use Meds Home Medications and Allergies Home Medications Medication Instructions Recorded Confirmed Type sennosides 8.6 mg tablet (Senokot) 8.6 mg DAILY 10/05/18 01/06/24 History acetaminophen 325 mg tablet 650 mg PO TID 05/23/22 01/06/24 History calcium 600 mg capsule 600 mg PO BID 05/23/22 01/06/24 History loratadine 10 mg tablet (Claritin) 10 mg PO DAILY 05/23/22 01/06/24 History vitamin B12 1,000 mcg-folic acid 1 shira sublingual DAILY 05/23/22 01/06/24 History 400 mcg sublingual lozenge levothyroxine 125 mcg tablet 125 mcg PO QAM #90 tabs 03/23/23 01/06/24 Rx metoprolol tartrate 50 mg tablet 50 mg PO BID #180 tabs 04/03/23 01/06/24 Rx diltiazem HCl 240 mg 240 mg PO QAM #90 caps 04/22/23 01/06/24 Rx capsule,extended release 24 hr apixaban 5 mg tablet (Eliquis) 5 mg PO BID #180 tabs 07/10/23 01/06/24 Rx atorvastatin 20 mg tablet (Lipitor) 20 mg PO DAILY #90 tabs 12/30/23 01/06/24 Rx valsartan 160 mg tablet 160 mg PO DAILY #90 tabs 12/30/23 01/06/24 Rx Allergies Allergy/AdvReac Type Severity Reaction Status Date / Time allopurinol Allergy Intermediate Fatigued Verified 01/06/24 17:38 Penicillins Allergy Mild RASH Verified 01/06/24 17:38 adhesive Allergy Unknown Verified 01/06/24 17:38 donepezil AdvReac Intermediate Diarrhea Verified 01/06/24 17:38 codeine AdvReac Unknown Verified 01/06/24 17:38 Review of Systems Review of Systems Narrative: confused Exam Vital Signs (past 8 hours): - 01/12/24 23:30 01/12/24 23:30 01/12/24 23:35 Temperature Pulse Rate 154 H Respiratory Rate 24 Blood Pressure 106/62 111/64 Pulse Oximetry Oxygen Delivery Method Oxygen Flow Rate Fraction of Inspired Oxygen 01/12/24 23:35 01/12/24 23:40 01/12/24 23:40 Temperature Pulse Rate 159 H 161 H Respiratory Rate 18 Blood Pressure 103/73 Pulse Oximetry Oxygen Delivery Method Oxygen Flow Rate Fraction of Inspired Oxygen 01/12/24 23:45 01/12/24 23:45 01/12/24 23:48 Temperature Pulse Rate 157 H Respiratory Rate 24 Blood Pressure 95/66 Pulse Oximetry Oxygen Delivery Method Nasal Cannula Oxygen Flow Rate Fraction of Inspired Oxygen 01/12/24 23:50 01/12/24 23:50 01/12/24 23:55 Temperature Pulse Rate 162 H Respiratory Rate 30 H Blood Pressure 108/73 103/61 Pulse Oximetry Oxygen Delivery Method Oxygen Flow Rate Fraction of Inspired Oxygen 01/12/24 23:55 01/13/24 00:00 01/13/24 00:01 Temperature Pulse Rate 160 H 157 H Respiratory Rate 29 H 33 H Blood Pressure 125/64 Pulse Oximetry 95 Oxygen Delivery Method Oxygen Flow Rate Fraction of Inspired Oxygen 01/13/24 00:01 01/13/24 00:05 01/13/24 00:05 Temperature Pulse Rate 158 H 153 H Respiratory Rate 30 H 30 H Blood Pressure 121/84 Pulse Oximetry 94 92 Oxygen Delivery Method Room Air Oxygen Flow Rate Fraction of Inspired Oxygen 01/13/24 00:41 01/13/24 00:51 01/13/24 00:51 Temperature 97.2 F L Pulse Rate 147 H 145 H Respiratory Rate 33 H 38 H Blood Pressure 99/57 L 91/52 L Pulse Oximetry 91 95 Oxygen Delivery Method Oxygen Flow Rate 1 Fraction of Inspired Oxygen 01/13/24 00:53 01/13/24 01:00 01/13/24 01:00 Temperature Pulse Rate 136 H 141 H Respiratory Rate 30 H 32 H Blood Pressure 89/55 L Pulse Oximetry 95 96 Oxygen Delivery Method Nasal Cannula Humidification Oxygen Flow Rate 1 Fraction of Inspired Oxygen 01/13/24 01:57 01/13/24 02:00 01/13/24 02:00 Temperature Pulse Rate 140 H Respiratory Rate 25 H Blood Pressure 89/61 L Pulse Oximetry 92 94 Oxygen Delivery Method Nasal Cannula Humidification Oxygen Flow Rate 3 1 Fraction of Inspired Oxygen 01/13/24 03:00 01/13/24 03:00 01/13/24 04:00 Temperature 98.2 F Pulse Rate 132 H 145 H Respiratory Rate 28 H 36 H Blood Pressure 95/64 Pulse Oximetry 91 93 Oxygen Delivery Method Oxygen Flow Rate 1 1 Fraction of Inspired Oxygen 01/13/24 04:00 01/13/24 05:00 01/13/24 05:00 Temperature Pulse Rate 146 H Respiratory Rate 25 H Blood Pressure 106/69 110/73 Pulse Oximetry 93 Oxygen Delivery Method Oxygen Flow Rate 1 Fraction of Inspired Oxygen 01/13/24 06:00 07/10/24 06:00 Temperature Pulse Rate 147 H Respiratory Rate 25 H Blood Pressure 107/72 Pulse Oximetry 91 Oxygen Delivery Method Oxygen Flow Rate 1 Fraction of Inspired Oxygen Fraction of Inspired Oxygen 24 SaO2/FiO2 Ratio 395 Oxygen Delivery Method Nasal Cannula,Humidification Oxygen Flow Rate 1 Narrative Exam Narrative: Confused. no acute distress S1S2 heard. Irregular Objective Labs 01/12/24 19:47 01/12/24 19:47 Labs: Laboratory Results - last 24 hr 01/12/24 01/12/24 01/13/24 19:47 22:40 00:45 WBC 18.2 H RBC 3.71 L Hgb 11.0 L Hct 33.9 L MCV 91.4 MCH 29.7 MCHC 32.5 RDW 14.4 Plt Count 358 Neut % (Auto) 76.9 H Lymph % (Auto) 11.0 L [place] % (Auto) 10.9 Eos % (Auto) 1.0 L Baso % (Auto) 0.2 Neut # (Auto) 60018 H Lymph # (Auto) 2000 [place] # (Auto) 2000 H Eos # (Auto) 200 Baso # (Auto) 0 PT 18.9 H INR 1.6 H Sodium 137 Potassium 3.8 Chloride 103 Carbon Dioxide 34 H BUN 19 H Creatinine 0.52 Estimated GFR > 60 BUN/Creatinine Ratio 36.5 H Glucose 118 H Lactate 1.3 Calcium 9.2 Total Bilirubin 1.3 AST 98 H ALT 96 H Alkaline Phosphatase 109 Troponin I 0.023 0.020 NT-Pro-B Natriuret Pep 3250 H Total Protein 6.8 Albumin 3.5 Globulin 3.3 Albumin/Globulin Ratio 1.1 Procalcitonin 0.170 Urine Color Urine Appearance Urine pH Ur Specific [place] Urine Protein Urine Glucose (UA) Urine Ketones Urine Occult Blood Urine Nitrate Urine Bilirubin Urine Urobilinogen Ur Leukocyte Esterase Urine RBC Urine WBC Ur Squamous Epith Cells Urine Bacteria Ur Culture Indicated? Vol Urine Centrifuged Nasal Screen MRSA (PCR) Not detected 01/13/24 02:33 WBC RBC Hgb Hct MCV MCH MCHC RDW Plt Count Neut % (Auto) Lymph % (Auto) [place] % (Auto) Eos % (Auto) Baso % (Auto) Neut # (Auto) Lymph # (Auto) [place] # (Auto) Eos # (Auto) Baso # (Auto) PT INR Sodium Potassium Chloride Carbon Dioxide BUN Creatinine Estimated GFR BUN/Creatinine Ratio Glucose Lactate Calcium Total Bilirubin AST ALT Alkaline Phosphatase Troponin I NT-Pro-B Natriuret Pep Total Protein Albumin Globulin Albumin/Globulin Ratio Procalcitonin Urine Color Yellow Urine Appearance Clear Urine pH 5.0 Ur Specific [place] 1.020 Urine Protein Negative Urine Glucose (UA) Negative Urine Ketones Negative Urine Occult Blood Negative Urine Nitrate Negative Urine Bilirubin Negative Urine Urobilinogen 1.0 Ur Leukocyte Esterase Negative Urine RBC None seen Urine WBC 1-5/hpf Ur Squamous Epith Cells 1-5 /hpf Urine Bacteria Occasional (0-1) Ur Culture Indicated? Cult not indicated Vol Urine Centrifuged 10ml (spun) Nasal Screen MRSA (PCR) Assessment & Plan Assessment & Plan narrative: 88 years old female with a past medical history of hypertension, aortic stenosis, limits dementia, chronic anticoagulation and multiple other medical issues including recent hospitalization for weakness possibly due to urinary tract infection now was brought back to the emergency room for shortness of breath and palpitations as noticed by family. Patient is confused and unable to give a good history. She denies any chest pain or shortness of breath. Denies any palpitations. Nursing at the facility noted she was not A-fib with rapid ventricular rate. In the ED was noted to be tachycardic with a pulse in the 160s. Initially received IV Cardizem with little change in the heart rate. Cardiology were consulted and apparently patient has had cardioversions in the past multiple times sotalol failed not a candidate for cardioversion. Reviewed with cardiology Dr. Luu who recommended amiodarone drip. Patient was initiated on amiodarone drip and admitted for further evaluation 1. A-fib with rapid ventricular rate. Continue the amiodarone drip per protocol with 1 mg/min for the first 6 hours and then 0.5 mg pulmonary for the next 18 hours unless reviewed and changed per cardiology recommendations. Currently anticoagulated 2. Recently treated UTI with generalized weakness. Completed antibiotic course and will continue to trend 3. Hypothyroidism resume the home medications and trend 4. cognitive impairmenconfused. no acute distress t with moderately advanced dementia. More confused than usual. Try to treat reversible factors Admitted under Inpatient status to ICU with LOS >2 midnights 5. Recent fall with gait instability. Consult physical and Occupational Therapy 6. Dyspnea with concerns for pulmonary edema. Did receive IV diuresis in ED. Monitor closely suspect more from the A-fib. Follow-up with an echocardiogram Patient is a DNR per POLST form. Will need to review goals of care with the family Location of the patient is [facility]. Patient was evaluated with the help of video communication device Time-Based Coding :: [TOTAL MINUTES] spent with patient and on the chart (including review of chart, obtaining history, exam, reviewing outside data, placing orders, documenting exam and treatment plan, and counseling patient) on [DATE].
--- NOTE | 2024-01-13 07:34 | DI.ECHO.S_ITS ---
[facility] : : [address] : : [place] : : [id number] : : Phone: [phone] Echocardiogram Report + + :Name: SAMUEL VERMA Study Date: 01/13/2024 Height: 66 in : :[facility] ReadingLocation: Weight: 211 lb : : Gender: Female BSA: 2.0 m2 : :: 1935 Age: 88 yrs BP: 103/61 mmHg: :Reason For Study: ATRIAL FIBRILLATION : :Ordering Physician: RADHA, : :ÓSCAR Valenzuela MD Performed By: Ilene Sanchez : :Referring: ÓSCAR GARCIA MD : + + Interpretation Summary The patient was in atrial fibrillation with heart rates between 93-122 bpm during the exam. The left ventricle is grossly normal size. The left ventricle is hyperdynamic. The ejection fraction is estimated to be 70-75%. The right ventricle is mildly dilated. The right ventricular systolic function is normal. There is severe biatrial enlargement. Both atria have remained unchanged in size since the prior echo exam. There is severe mitral annular calcification. Restriction of the mitral leaflet mobility. Suspect at least mild to moderate mitral stenosis. Not severe. There is moderate mitral regurgitation. Previously mild MR. The aortic valve is not well visualized. The aortic valve is heavily calcified. There is severely reduced leaflet mobility. The peak aortic velocity is 2.9 m/sec. Previous aortic velocity 2.65 m/s. The aortic valve mean gradient is 20 mmHg. The calculated aortic valve area is 0.4 cm2. sev ratio: 0.16 Stroke-volume index about 12.22 mL/mA?. Consider paradoxically low gradient severe aortic stenosis due to low stroke- volume in the setting of A-fib There is severe tricuspid regurgitation. Previously mild TR. The right ventricular systolic pressure is estimated to be at least 44 mmHg based on an estimated right atrial pressure of 15 mm Hg. Suspect underestimation of pulmonary artery systolic pressure. Compared to the prior echo exam, there has been an increase in TR severity. Previously 47 mmHg. Procedure: A two-dimensional transthoracic echocardiogram with color flow and Doppler was performed. The study quality was technically adequate. Comparison is made with the echocardiogram of 04/30/2023. The patient was in atrial fibrillation with heart rates between 93-122 bpm during the exam. Left Ventricle: Left ventricular wall thickness is mildly increased. The left ventricle is grossly normal size. There is no thrombus. The ejection fraction is estimated to be 70-75%. The left ventricle is hyperdynamic. There are no focal wall motion abnormalities. Diastolic function could not be accurately assessed due to atrial fibrillation. Right Ventricle: The right ventricle is mildly dilated. The right ventricular systolic function is normal. Atria: There is severe biatrial enlargement. Both atria have remained unchanged in size since the prior echo exam. There is no Doppler evidence for an interatrial shunt. Mitral Valve: There is severe mitral annular calcification. The mitral valve chordae are thickened and/or calcified. Restriction of the mitral leaflet mobility. Suspect at least mild to moderate mitral stenosis. Not severe. There is moderate mitral regurgitation. Compared to the prior echo study, there has been no change in the severity of mitral regurgitation. Aortic Valve: The aortic valve is not well visualized. The aortic valve is heavily calcified. There is severely reduced leaflet mobility. The peak aortic velocity is 2.9 m/sec. The aortic valve mean gradient is 20 mmHg. The calculated aortic valve area is 0.4 cm2. No aortic regurgitation is present. Tricuspid Valve: The tricuspid annulus is dilated. There is severe tricuspid regurgitation. The right ventricular systolic pressure is estimated to be at least 44 mmHg based on an estimated right atrial pressure of 15 mm Hg. Compared to the prior echo exam, there has been an increase in TR severity. Pulmonic Valve: The pulmonic valve is not well visualized. There is trace pulmonic regurgitation. Great Vessels: The aortic root is normal size. The dimensions of the ascending aorta are normal. The IVC is dilated (diameter is greater than 2.1 cm) and it collapses less than 50% with a sniff. This suggests a high right atrial pressure of 15 mm Hg. Pericardium/ Pleura There is no pericardial effusion. There is a pleural effusion present. MMode/2D Measurements & Calculations LVIDd: 4.2 cm LVOT diam: 1.8 cm LVIDs: 2.4 cm Ao root diam: 3.0 cm FS: 43.0 % asc Aorta Diam: 3.8 cm IVSd: 0.87 cm LVPWd: 1.4 cm LV forrester. diameter/BSA (cm/m^2): 2.0 LV sys. diameter/BSA (cm/m^2): 1.2 LA A4 area: 36.8 cm2 RA long axis: 7.1 cm LA length (vol): 6.8 cm RA area: 33.2 cm2 RA vol: 132.3 ml RA : 64.6 ml/m2 IVC diam: 2.5 cm RVD1 (basal): 4.2 cm RVD2 (mid): 3.5 cm TAPSE: 1.8 cm Doppler Measurements & Calculations Ao V2 max: 297.3 cm/sec LVOT Max Oscar: 47.7 cm/sec Ao V2 mean: 216.8 cm/sec LV V1 max P.91 mmHg Ao max P.2 mmHg LV V1 VTI: 9.2 cm Ao mean P.4 mmHg NIMISHA(I,D): 0.39 cm2 Ao V2 VTI: 58.2 cm NIMISHA(V,D): 0.40 cm2 sev ratio: 0.16 NIMISHA indexed to BSA (cm^2/m^2): 0.19 MV E max oscar: 97.4 cm/sec TR max oscar: 266.8 cm/sec MV A max oscar: 1.3 cm/sec TR max P.5 mmHg MV E/A: 77.3 PA V2 max: 91.0 cm/sec Med Peak E' Oscar: 7.0 cm/sec PA V2 mean: 66.8 cm/sec E/E' med: 13.9 PA mean P.0 mmHg Lat Peak E' Oscar: 7.5 cm/sec PA pr(Accel): 46.5 mmHg E/E' lat: 13.0 E/e' average: 13.4 MV dec time: 0.09 sec SV(LVOT): 22.9 ml Reading Physician:01:25 PM
[2024-01-13] MEDS: ATORVASTATIN 20 MG TABLET PO (08:55)
[2024-01-13] MEDS: APIXABAN 5 MG TABLET PO ×2 (08:55→20:09)
[2024-01-13] MEDS: LEVOTHYROXINE 125 MCG TABLET PO (08:55)
[2024-01-13] MEDS: METOPROLOL IR 50 MG TABLET PO (08:55)
[2024-01-13] MEDS: SENNOSIDES 8.6 MG TABLET PO (08:55)
[2024-01-13] MEDS: ACETAMINOPHEN 325 MG TABLET 650 MG PO ×2 (10:29→17:32)
--- NOTE | 2024-01-13 12:17 | CM.DANOTE ---
Initial DCP Assessment Visit Note Reviewed EMR and team rounds for status updates. Met with pt's spouse at bedside, pt was able to say hi, but that was the extent of her ability to participate in this visit. Pt was re-admitted from [facility], she was recently hospitalized for a UTI from 01/05-01/10/24. She had been living modified independently with her prior to going to [facility]. She has dementia, spouse has dementia as well but not as advanced. Plan is for her return to [facility] and continue rehab, wound care, with the long-term plan of her moving into Memory [facility]. [facility] will transport her once she's ready for d/c, likely tomorrow. Payor: [employer] PCP: Dr. Phelps Pt is a 88 year-old F who presents to the ED from [facility] via EMS. She has a PMH of Afib, chronic weakness, recent hospitalization, and advanced dementia. She was sent to the ED after the nurse noted that pt was SOB, and found to be in Afib w/RVR. Her chest x-ray also showed small to moderate bilateral pleural effusions. The ED consulted [facility] Cardiology who recommended she be initiated on amiodarone, then admitted for cont. tx/evaluation. Goal is to return to home cardio meds upon d/c. DCP will continue to monitor and assist with any further evolving needs relating to her transition back to [facility]. Discharge Planning/Care Management CM Discharge Assessment Start: 01/13/24 12:13 Freq: Status: Active Protocol: Document 01/13/24 12:13 DPL (Rec: 01/13/24 12:17 DPL [id number]) Discharge Planning Assessment Assigned Assistant Basketball Coach JUAN JOSE Morrison Advance Directives? Yes Advance Directives on File No History Provided By Significant Other,Medical Record Has Patient been admitted in last 30 Yes days? Comment 01/05-01/10/24 for UTI Prior Living Arrangements Skilled Nurse Facility Household Members spouse Type of transporation used prior to Relies on Others admit Willing to Return to Facility? Yes Independent with ADL's No Is patient alert and oriented? No Needs Assistance With Bathing,Grooming,Meal Prep, Toileting,Managing Medications ,Home Chores / Shopping Caregiver for Another No Community Services used prior to Physical Therapy,Wound Care admission: DME Already Rented / Owned Wheelchair,Elevated Toilet Seat,FWW / Walker Patient/Family Preference [facility] Comment Plan is to return to [facility] for further rehab, and the family is in the process of looking for a LTC placement close to [facility]. Discharge Plan [facility] Facility Community Services Physical Therapy,Wound Care Transportation Arrangement Facility Referrals Initiated [facility] Inpatient Status as of 01/12/24 Whiteboard Updated in Patient Room with Yes name and ext. # of Assistant Basketball Coach Review Status In Process Please Provide Date Initial DC 01/13/24 Assessment Was Performed
--- NOTE | 2024-01-13 14:40 | P.HP_ITS ---
History of Present Illness History of Present Illness Date Patient Seen: 01/13/24 Time Patient Seen: 11:00 Chief complaint: Increased work of breathing Narrative: Per admitting / overnight provider, 88 years old female with a past medical history of hypertension, aortic stenosis, limits dementia, chronic anticoagulation and multiple other medical issues including recent hospitalization for weakness possibly due to urinary tract infection now was brought back to the emergency room for shortness of breath and palpitations as noticed by family. Patient is confused and unable to give a good history. She denies any chest pain or shortness of breath. Denies any palpitations. Nursing at the facility noted she was not A-fib with rapid ventricular rate. In the ED was noted to be tachycardic with a pulse in the 160s. Initially received IV Cardizem with little change in the heart rate. Cardiology were consulted and apparently patient has had cardioversions in the past multiple times sotalol failed not a candidate for cardioversion. Reviewed with cardiology Dr. Luu who recommended amiodarone drip. Patient was initiated on amiodarone drip and admitted for further evaluation Overnight patient was started on amidarone infusion. She has a large decubitus ulcer on her sacrum, have consutled surgery for possible debridement. Started on antibiotics for probable infection with ceftriaxone and azithromycin. She has minimal complaints today, no chest pain or shortness of breath. HR improved with resumption of home metoprolol but BP is soft but MAP around 65. [facility] Medical History Do not resuscitate Alzheimer's dementia Venous ulcer of right leg Mild cognitive impairment Abrasion of left heel Aortic stenosis Venous (peripheral) insufficiency History of colon cancer Obstructive sleep apnea History of left breast cancer Polyneuropathy, unspecified Acquired hypothyroidism Impaired fasting glucose Mixed hyperlipidemia Essential hypertension History of subdural hematoma Chronic anticoagulation Chronic atrial fibrillation Eczema (~2014) Tinnitus (~1999) Cataracts, bilateral (~1999) Arthritis Surgical History Anesthesia History of colon surgery History of thyroid surgery History of hysterectomy (~1979) Family History Mother Cancer Father Heart disease Sister Cancer Social History marital status: household members: spouse Smoking Status: Former smoker alcohol intake: current substance use type: does not use Meds Home Medications and Allergies Home Medications Medication Instructions Recorded Confirmed Type sennosides 8.6 mg tablet (Senokot) 8.6 mg DAILY 10/05/18 01/13/24 History acetaminophen 325 mg tablet 650 mg PO TID 05/23/22 01/13/24 History calcium 600 mg capsule 600 mg PO BID 05/23/22 01/13/24 History loratadine 10 mg tablet (Claritin) 10 mg PO DAILY 05/23/22 01/13/24 History levothyroxine 125 mcg tablet 125 mcg PO QAM #90 tabs 03/23/23 01/13/24 Rx metoprolol tartrate 50 mg tablet 50 mg PO BID #180 tabs 04/03/23 01/13/24 Rx diltiazem HCl 240 mg 240 mg PO QAM #90 caps 04/22/23 01/13/24 Rx capsule,extended release 24 hr apixaban 5 mg tablet (Eliquis) 5 mg PO BID #180 tabs 07/10/23 01/13/24 Rx atorvastatin 20 mg tablet (Lipitor) 20 mg PO DAILY #90 tabs 12/30/23 01/13/24 Rx valsartan 160 mg tablet 160 mg PO DAILY #90 tabs 12/30/23 01/13/24 Rx folic acid 400 mcg tablet 0.4 mg PO DAILY 01/13/24 01/13/24 History mecobalamin (vitamin B12) 1,000 1,000 mcg PO DAILY 01/13/24 01/13/24 History mcg chewable tablet Allergies Allergy/AdvReac Type Severity Reaction Status Date / Time allopurinol Allergy Intermediate Fatigued Verified 01/06/24 17:38 Penicillins Allergy Mild RASH Verified 01/06/24 17:38 adhesive Allergy Unknown Verified 01/06/24 17:38 donepezil AdvReac Intermediate Diarrhea Verified 01/06/24 17:38 codeine AdvReac Unknown Verified 01/06/24 17:38 Review of Systems Review of Systems Narrative: All other systems reviewed with the patient and are negative unless otherwise stated. Exam Vital Signs (past 8 hours): - 01/13/24 07:00 01/13/24 07:00 01/13/24 08:00 Temperature 98.4 F Pulse Rate 153 H Respiratory Rate 27 H Blood Pressure 115/79 Pulse Oximetry 92 Oxygen Delivery Method Nasal Cannula Oxygen Flow Rate 01/13/24 08:00 01/13/24 08:00 01/13/24 09:00 Temperature Pulse Rate 140 H Respiratory Rate 25 H Blood Pressure 115/78 89/65 L Pulse Oximetry 90 L Oxygen Delivery Method Oxygen Flow Rate 01/13/24 09:00 01/13/24 10:00 01/13/24 10:00 Temperature Pulse Rate 153 H 111 H Respiratory Rate 31 H 31 H Blood Pressure 80/55 L Pulse Oximetry 95 96 Oxygen Delivery Method Oxygen Flow Rate 2 01/13/24 11:00 01/13/24 11:00 01/13/24 11:52 Temperature Pulse Rate 108 H Respiratory Rate 26 H Blood Pressure 103/61 Pulse Oximetry 96 Oxygen Delivery Method Nasal Cannula Oxygen Flow Rate 2 Fraction of Inspired Oxygen 24 SaO2/FiO2 Ratio 395 Oxygen Delivery Method Nasal Cannula Oxygen Flow Rate 2 Narrative Exam Narrative: General:? Chronically ill appearing, no acute distress. HEENT:? Normocephalic, atraumatic, extraocular muscles intact, oral pharynx is clear and mucous membranes are moist. Neck: supple and symmetric, trachea is midline, no cervical adenopathy. Negative for JVD Chest:? Normal AP diameter and contour without kyphoscoliosis, no tachypnea, equal chest rise bilaterally. Lungs:? CTA b/l no wheezing rhonchi or rales. Cardio:?tachycardic, irregularly irregular no m/r/g Abdomen: S NT ND. Musculoskeletal:? Muscle strength and tone are equal within normal limits, no deformity. Extremities: No edema or joint effusions. No cyanosis or clubbing. Skin:? Please see pictures for decubitus ulcer Objective Labs 01/12/24 19:47 01/12/24 19:47 Labs: Laboratory Results - last 24 hr 01/12/24 01/12/24 01/13/24 19:47 22:40 00:45 WBC 18.2 H RBC 3.71 L Hgb 11.0 L Hct 33.9 L MCV 91.4 MCH 29.7 MCHC 32.5 RDW 14.4 Plt Count 358 Neut % (Auto) 76.9 H Lymph % (Auto) 11.0 L [place] % (Auto) 10.9 Eos % (Auto) 1.0 L Baso % (Auto) 0.2 Neut # (Auto) 67679 H Lymph # (Auto) 2000 [place] # (Auto) 2000 H Eos # (Auto) 200 Baso # (Auto) 0 PT 18.9 H INR 1.6 H Sodium 137 Potassium 3.8 Chloride 103 Carbon Dioxide 34 H BUN 19 H Creatinine 0.52 Estimated GFR > 60 BUN/Creatinine Ratio 36.5 H Glucose 118 H Lactate 1.3 Calcium 9.2 Total Bilirubin 1.3 AST 98 H ALT 96 H Alkaline Phosphatase 109 Troponin I 0.023 0.020 NT-Pro-B Natriuret Pep 3250 H Total Protein 6.8 Albumin 3.5 Globulin 3.3 Albumin/Globulin Ratio 1.1 Procalcitonin 0.170 Urine Color Urine Appearance Urine pH Ur Specific [place] Urine Protein Urine Glucose (UA) Urine Ketones Urine Occult Blood Urine Nitrate Urine Bilirubin Urine Urobilinogen Ur Leukocyte Esterase Urine RBC Urine WBC Ur Squamous Epith Cells Urine Bacteria Ur Culture Indicated? Vol Urine Centrifuged Nasal Screen MRSA (PCR) Not detected 01/13/24 02:33 WBC RBC Hgb Hct MCV MCH MCHC RDW Plt Count Neut % (Auto) Lymph % (Auto) [place] % (Auto) Eos % (Auto) Baso % (Auto) Neut # (Auto) Lymph # (Auto) [place] # (Auto) Eos # (Auto) Baso # (Auto) PT INR Sodium Potassium Chloride Carbon Dioxide BUN Creatinine Estimated GFR BUN/Creatinine Ratio Glucose Lactate Calcium Total Bilirubin AST ALT Alkaline Phosphatase Troponin I NT-Pro-B Natriuret Pep Total Protein Albumin Globulin Albumin/Globulin Ratio Procalcitonin Urine Color Yellow Urine Appearance Clear Urine pH 5.0 Ur Specific [place] 1.020 Urine Protein Negative Urine Glucose (UA) Negative Urine Ketones Negative Urine Occult Blood Negative Urine Nitrate Negative Urine Bilirubin Negative Urine Urobilinogen 1.0 Ur Leukocyte Esterase Negative Urine RBC None seen Urine WBC 1-5/hpf Ur Squamous Epith Cells 1-5 /hpf Urine Bacteria Occasional (0-1) Ur Culture Indicated? Cult not indicated Vol Urine Centrifuged 10ml (spun) Nasal Screen MRSA (PCR) Assessment & Plan Assessment & Plan narrative: 88 years old female with a past medical history of hypertension, aortic stenosis, dementia, afib with chronic anticoagulation and multiple other medical issues including recent hospitalization for weakness possibly due to urinary tract infection admitted for afib with RVR, also found to have large decubitus ulcer on her sacrum much worse than previous admission. 1. Chronic A-fib with RVR - Continue the amiodarone drip and restart home metoprolol. Start home diltiazem when BP improved. May be response to #2 noted below. - continue home apixaban, may need to hold if debridement is needed. 2. Possible sepsis secondary to Sacral decubitus ulcer with elevated bilirubin, acute metabolic encephalopathy, acute respiratory failure with hypoxia - start ceftriaxone and vancomycin for ulcer, consulted surgery pending formal evaluation, discussed with them today. - consider RUQ ultrasound with mild AST/ALT elevations and bilirubin, though no pain on exam. Will trend CMP. - hold home valsartan given low BP, need for rate control - SOFA score is 3 3. Hypothyroidism - continue home levothyroxine. 4. cognitive impairment 5. Recent fall with gait instability. physical and Occupational Therapy 6. Dyspnea with concerns for pulmonary edema. Did receive IV diuresis in ED.Will hold on further at this time in favor of rate contorl. Monitor closely suspect more from the A-fib. TTE is unremarkable. Patient is a DNR per POLST form. Surrogate is patient's spouse DVT: on apixaban I have utilized all available immediate resources to obtain, update, or review the patient's current medications. Dispo: patient admitted under ICU status for amiodarone infusion. Can likely downgrade to regular floor once finished. She is an inpatient. I spent 35 minutes providing critical care management this patient. This excludes time spent in performing separately billed procedures. Additional history obtained via discussions with the overnight provider. These discussions contributed to the creation of the above assessment and plan. I have reviewed patient's presenting documentation, labs, and imaging personally. Time-Based Coding :: [TOTAL MINUTES] spent with patient and on the chart (including review of chart, obtaining history, exam, reviewing outside data, placing orders, documenting exam and treatment plan, and counseling patient) on [DATE].
[2024-01-13] MEDS: cefTRIAXone 1,000 MG in SODIUM CHLORIDE 0.9% 100 ML 200 MG IV (14:42)
[2024-01-13] MEDS: VANCOMYCIN 1,000 MG/200 ML PIGGYBACK 200 MG IV ×2 (15:36→22:08)
[2024-01-13 15:53] LABS: Alanine Aminotransferase 79 IU/L (<35); Alkaline Phosphatase 86 U/L (38-126); Aspartate Aminotransferase 74 IU/L (14-36); BUN Creatinine Ratio 35.4 (6-22); Bilirubin Total 0.8 mg/dL (0.2-1.3); Blood Urea Nitrogen 23 mg/dL (7-17); Calcium 8.4 mg/dL (8.4-10.2); Carbon Dioxide 35 mmol/L (22-32); Chloride 99 mmol/L (98-107); Estimated Glomerular Filt Rate > 60 mL/min (>60); Globulin 3.1 g/dL (1.7-4.1); Glucose 108 mg/dL (80-110); HEMOLYSIS < 15 (0-50); Potassium 3.7 mmol/L (3.4-5.1); Sodium 136 mmol/L (137-145); Total Protein 6.1 g/dL (6.3-8.2)
--- NOTE | 2024-01-13 16:10 | PC.NURSE ---
Addendum entered by Jess Tong R.N. 01/13/24 18:40: No urine output this shift, bladder scanned for 250-300 ml, reported to MD. Instructions to re-scan bladder on next shift, see new orders. Dr. Osman to see patient, ordered twice a day dressing changes. Dressing changed, dry gauze placed in wound bed to pack, covered with allevyn. Patient repositioned. Original Note: Day Shift Note Pt alert and oriented to self and place, forgetfulness noted at times. Lungs clear bilaterally, SpO2 low 90s on 2L NC. Afib RVR in the 140s this AM up to the 160s, on amio gtt. Administered PO metoprolol and HR down to low 100s and 110s. BP occasionally 80s/40s with MAP 60 and above, MD aware. Reports pain to neck and buttocks, administered Tylenol. Pt mostly sleeping, wakes for meal times, poor appetite. Turning every 2 hours, pt bridged at all times to offload pressure to sacral ulcer. Sacral ulcer assessed and cleansed, open areas with moderate yellow drainage, skin is erythemic and macerated. Allevyn dressings placed, brief in place with purewick. Heels floated, erythemic but blanchable. at bedside. Bed alarm on.
[2024-01-13] MEDS: methocarbamoL 500 MG TABLET PO (18:14)
--- NOTE | 2024-01-13 19:11 | P.CONS_ITS ---
History of Present Illness Consult details Date Patient Seen: 01/13/24 Time Patient Seen: 19:11 Chief complaint: Increased work of breathing Narrative: Rose Marie is an 88-year-old woman with dementia who is admitted from [facility] because of atrial fibrillation. She was noted to have a full-thickness sacral decubitus ulcer. Meds Home Medications and Allergies Home Medications Medication Instructions Recorded Confirmed Type sennosides 8.6 mg tablet (Senokot) 8.6 mg DAILY 10/05/18 01/13/24 History acetaminophen 325 mg tablet 650 mg PO TID 05/23/22 01/13/24 History calcium 600 mg capsule 600 mg PO BID 05/23/22 01/13/24 History loratadine 10 mg tablet (Claritin) 10 mg PO DAILY 05/23/22 01/13/24 History levothyroxine 125 mcg tablet 125 mcg PO QAM #90 tabs 03/23/23 01/13/24 Rx metoprolol tartrate 50 mg tablet 50 mg PO BID #180 tabs 04/03/23 01/13/24 Rx diltiazem HCl 240 mg 240 mg PO QAM #90 caps 04/22/23 01/13/24 Rx capsule,extended release 24 hr apixaban 5 mg tablet (Eliquis) 5 mg PO BID #180 tabs 07/10/23 01/13/24 Rx atorvastatin 20 mg tablet (Lipitor) 20 mg PO DAILY #90 tabs 12/30/23 01/13/24 Rx valsartan 160 mg tablet 160 mg PO DAILY #90 tabs 12/30/23 01/13/24 Rx folic acid 400 mcg tablet 0.4 mg PO DAILY 01/13/24 01/13/24 History mecobalamin (vitamin B12) 1,000 1,000 mcg PO DAILY 01/13/24 01/13/24 History mcg chewable tablet Allergies Allergy/AdvReac Type Severity Reaction Status Date / Time allopurinol Allergy Intermediate Fatigued Verified 01/06/24 17:38 Penicillins Allergy Mild RASH Verified 01/06/24 17:38 adhesive Allergy Unknown Verified 01/06/24 17:38 donepezil AdvReac Intermediate Diarrhea Verified 01/06/24 17:38 codeine AdvReac Unknown Verified 01/06/24 17:38 Exam Vital Signs (past 8 hours): - 01/13/24 11:52 01/13/24 12:00 01/13/24 12:00 Temperature Pulse Rate 105 H Respiratory Rate 24 Blood Pressure 84/52 L Pulse Oximetry 94 Oxygen Delivery Method Nasal Cannula 01/13/24 13:00 01/13/24 13:00 01/13/24 14:00 Temperature Pulse Rate 113 H Respiratory Rate 21 Blood Pressure 89/68 L 100/67 Pulse Oximetry 97 Oxygen Delivery Method 01/13/24 14:00 01/13/24 15:00 01/13/24 15:00 Temperature 97.7 F Pulse Rate 118 H 123 H Respiratory Rate 24 25 H Blood Pressure 92/61 Pulse Oximetry 97 94 Oxygen Delivery Method 01/13/24 15:00 01/13/24 16:00 01/13/24 16:00 Temperature Pulse Rate 122 H Respiratory Rate 28 H Blood Pressure 100/74 Pulse Oximetry 94 Oxygen Delivery Method Nasal Cannula Fraction of Inspired Oxygen 24 SaO2/FiO2 Ratio 395 Oxygen Delivery Method Nasal Cannula Oxygen Flow Rate 2 Narrative Exam Narrative: There is a 3 x 5 cm full-thickness sacral decubitus ulcer Objective Labs 01/12/24 19:47 01/13/24 15:21 Labs: Laboratory Results - last 24 hr 01/12/24 01/12/24 01/13/24 19:47 22:40 00:45 WBC 18.2 H RBC 3.71 L Hgb 11.0 L Hct 33.9 L MCV 91.4 MCH 29.7 MCHC 32.5 RDW 14.4 Plt Count 358 Neut % (Auto) 76.9 H Lymph % (Auto) 11.0 L [place] % (Auto) 10.9 Eos % (Auto) 1.0 L Baso % (Auto) 0.2 Neut # (Auto) 81816 H Lymph # (Auto) 2000 [place] # (Auto) 2000 H Eos # (Auto) 200 Baso # (Auto) 0 PT 18.9 H INR 1.6 H Sodium 137 Potassium 3.8 Chloride 103 Carbon Dioxide 34 H BUN 19 H Creatinine 0.52 Estimated GFR > 60 BUN/Creatinine Ratio 36.5 H Glucose 118 H Lactate 1.3 Calcium 9.2 Total Bilirubin 1.3 AST 98 H ALT 96 H Alkaline Phosphatase 109 Troponin I 0.023 0.020 NT-Pro-B Natriuret Pep 3250 H Total Protein 6.8 Albumin 3.5 Globulin 3.3 Albumin/Globulin Ratio 1.1 Procalcitonin 0.170 Urine Color Urine Appearance Urine pH Ur Specific [place] Urine Protein Urine Glucose (UA) Urine Ketones Urine Occult Blood Urine Nitrate Urine Bilirubin Urine Urobilinogen Ur Leukocyte Esterase Urine RBC Urine WBC Ur Squamous Epith Cells Urine Bacteria Ur Culture Indicated? Vol Urine Centrifuged Nasal Screen MRSA (PCR) Not detected 01/13/24 01/13/24 02:33 15:21 WBC RBC Hgb Hct MCV MCH MCHC RDW Plt Count Neut % (Auto) Lymph % (Auto) [place] % (Auto) Eos % (Auto) Baso % (Auto) Neut # (Auto) Lymph # (Auto) [place] # (Auto) Eos # (Auto) Baso # (Auto) PT INR Sodium 136 L Potassium 3.7 Chloride 99 Carbon Dioxide 35 H BUN 23 H Creatinine 0.65 Estimated GFR > 60 BUN/Creatinine Ratio 35.4 H Glucose 108 Lactate Calcium 8.4 Total Bilirubin 0.8 AST 74 H ALT 79 H Alkaline Phosphatase 86 Troponin I NT-Pro-B Natriuret Pep Total Protein 6.1 L Albumin 3.0 L Globulin 3.1 Albumin/Globulin Ratio 1.0 Procalcitonin Urine Color Yellow Urine Appearance Clear Urine pH 5.0 Ur Specific [place] 1.020 Urine Protein Negative Urine Glucose (UA) Negative Urine Ketones Negative Urine Occult Blood Negative Urine Nitrate Negative Urine Bilirubin Negative Urine Urobilinogen 1.0 Ur Leukocyte Esterase Negative Urine RBC None seen Urine WBC 1-5/hpf Ur Squamous Epith Cells 1-5 /hpf Urine Bacteria Occasional (0-1) Ur Culture Indicated? Cult not indicated Vol Urine Centrifuged 10ml (spun) Nasal Screen MRSA (PCR) PFSH Medical History Do not resuscitate Alzheimer's dementia Venous ulcer of right leg Mild cognitive impairment Abrasion of left heel Aortic stenosis Venous (peripheral) insufficiency History of colon cancer Obstructive sleep apnea History of left breast cancer Polyneuropathy, unspecified Acquired hypothyroidism Impaired fasting glucose Mixed hyperlipidemia Essential hypertension History of subdural hematoma Chronic anticoagulation Chronic atrial fibrillation Eczema (~2014) Tinnitus (~1999) Cataracts, bilateral (~1999) Arthritis Surgical History Anesthesia History of colon surgery History of thyroid surgery History of hysterectomy (~1979) Family History Mother Cancer Father Heart disease Sister Cancer Social History marital status: household members: spouse Tobacco & Substance Use Smoking Status: Former smoker alcohol intake: current substance use type: does not use Assessment & Plan Assessment and plan (1) Sacral decubitus ulcer: Qualifiers: Pressure injury stage: stage 4 Qualified Code(s): L89.154 - Pressure ulcer of sacral region, stage 4 Status: Acute Plan Unfortunate 88-year-old woman with dementia and a full thickness sacral decubitus ulcer. The sacral decubitus ulcer is a symptom of her underlying failing health and not vice versa. There was no role for surgical intervention. Recommend daily or twice daily dressing changes using dry gauze to pack the cavity of the wound. Time-Based Coding :: [TOTAL MINUTES] spent with patient and on the chart (including review of chart, obtaining history, exam, reviewing outside data, placing orders, documenting exam and treatment plan, and counseling patient) on [DATE].
[2024-01-13] MEDS: METOPROLOL ER 50 MG TABLET PO (20:08)
[2024-01-14] VITALS (36 sets, daily range): BP systolic 69–135; BP diastolic 48–84; PULSE 105–137; RESP 20–49; TEMP 36.1–37.3; O2SAT 71–99
[2024-01-14] MEDS: methocarbamoL 500 MG TABLET PO ×2 (05:33→12:59)
[2024-01-14] MEDS: LEVOTHYROXINE 125 MCG TABLET PO (05:33)
[2024-01-14 05:34] LABS: Add Manual Diff / Slide Review NO; Basophils Absolute Auto 0 /uL (0-100); Basophils Percent Auto 0.3 % (0-2); Eosinophils Absolute Auto 400 /uL (0-450); Eosinophils Percent Auto 2.9 % (2-4); Hematocrit 34.8 % (36-46); Hemoglobin 11.4 g/dL (12.0-16.0); Lymphocytes Absolute Auto 1600 /uL (1100-4500); Lymphocytes Percent Auto 10.5 % (25-40); Mean Corpuscular HGB Conc 32.8 % (30-36); Mean Corpuscular Hemoglobin 30.2 PG (26-34); Mean Corpuscular Volume 92.1 fL (80-100); Monocytes Absolute Auto 1400 /uL (0-900); Monocytes Percent Auto 8.7 % (3-14); Neutrophils Absolute Auto 12000 /uL (1500-7000); Neutrophils Percent Auto 77.6 % (50-75); Platelet Count 345 X10^3/uL (150-400); Red Blood Cell Count 3.78 X10^6/uL (4.0-5.2); Red Cell Distribution Width 14.5 % (11.6-14.8); White Blood Cell Count 15.5 X10^3/uL (4.5-11.0)
[2024-01-14 05:36] LABS: Albumin 3.3 g/dL (3.5-5.0); Alkaline Phosphatase 101 U/L (38-126); BUN Creatinine Ratio 35.2 (6-22); Bilirubin Total 0.8 mg/dL (0.2-1.3); Blood Urea Nitrogen 19 mg/dL (7-17); Calcium 8.5 mg/dL (8.4-10.2); Carbon Dioxide 35 mmol/L (22-32); Chloride 98 mmol/L (98-107); Estimated Glomerular Filt Rate > 60 mL/min (>60); Globulin 3.2 g/dL (1.7-4.1); Glucose 93 mg/dL (80-110); HEMOLYSIS < 15 (0-50); Potassium 3.6 mmol/L (3.4-5.1); Sodium 136 mmol/L (137-145); Total Protein 6.5 g/dL (6.3-8.2)
[2024-01-14 05:52] LABS: Alanine Aminotransferase 77 IU/L (<35); Aspartate Aminotransferase 72 IU/L (14-36)
[2024-01-14] MEDS: VANCOMYCIN 1,000 MG/200 ML PIGGYBACK 200 MG IV ×3 (07:15→22:22)
[2024-01-14] MEDS: METOPROLOL ER 50 MG TABLET PO (08:37)
[2024-01-14] MEDS: APIXABAN 5 MG TABLET PO ×2 (08:38→20:16)
[2024-01-14] MEDS: ATORVASTATIN 20 MG TABLET PO (08:38)
[2024-01-14] MEDS: SENNOSIDES 8.6 MG TABLET PO (08:38)
[2024-01-14] MEDS: dilTIAZem SR 60 MG PO (09:31)
--- NOTE | 2024-01-14 10:14 | DIET.CONS ---
Dietary Consultation Note Admission Date: 01/12/2024 23:32 Assessment: 88 y F brought to ED for SOB and palpitations. PMH dementia and recent hospitalization. Nutrition screened for low MNA. Chart reviewed. Met with pt and spouse on 01/07 who reported decrease in food consumption since 2019. No significant weight loss noted. Stage 4 pressure ulcer. Ht: 167.64 cm Wt: 96 kg BMI: 34.1 UBW: 88.5 kg on 01/06/24 - No recent significant weight loss Last BM: 01/12/24 (01/12/24 23:48) MNA: 9 Devyn Score: 14 Diet: 01/13/24 Breakfast Heart Healthy Diet Diet Modifications: Nutrition Percent Meal Consumed 75% 01/14/24 09:04 Percent Meal Consumed 5 01/13/24 18:45 Percent Meal Consumed 10 01/13/24 13:30 Percent Meal Consumed 25% 01/13/24 10:00 Labs: RBC 3.78 X10^6/uL (4.0-5.2) L 01/14/24 04:00 Hgb 11.4 g/dL (12.0-16.0) L 01/14/24 04:00 Hct 34.8 % (36-46) L 01/14/24 04:00 Creatinine 0.54 mg/dL (0.52-1.04) 01/14/24 04:00 Lactate 1.3 mmol/L (0.7-2.1) 01/12/24 19:47 NT-Pro-B Natriuret Pep 3250 pg/mL (<450) H 01/12/24 19:47 Nutrition Diagnosis: Increased nutrient needs (protein) r/t wound healing aeb stage 4 pressure ulcer of sacral region Interventions: 1. Nino BID 2. ONS BID to support adequate po intakes EER: 90-100 g protein (1.25-1.5 g/kg of adjusted IBW) Monitoring/Evaluations: Nino tolerance, po intakes Electronically Signed by: Elyssa Sahni 01/14/24 10:14 Clinical Dietitian [address] [id number]
[2024-01-14] MEDS: QUETIAPINE 25 MG TABLET PO ×2 (13:14→20:16)
--- NOTE | 2024-01-14 14:03 | PM.PN.1 ---
Subjective Subjective Interval history: Surgery evaluated, did not feel like debridement would be necessary. Heart rate remains uncontrolled from 110s to 130s. Patient becoming more agitated, started seroquel. Exam Vital Signs (past 8 hours): - 01/14/24 07:00 01/14/24 07:00 01/14/24 08:00 Pulse Rate 130 H Respiratory Rate 24 Blood Pressure 111/72 Pulse Oximetry 96 Oxygen Delivery Method Nasal Cannula Oxygen Flow Rate Fraction of Inspired Oxygen 01/14/24 08:00 01/14/24 08:01 01/14/24 08:01 Pulse Rate 131 H 128 H Respiratory Rate 25 H 28 H Blood Pressure 108/55 L Pulse Oximetry 97 97 Oxygen Delivery Method Oxygen Flow Rate Fraction of Inspired Oxygen 01/14/24 08:37 01/14/24 08:48 01/14/24 09:04 Pulse Rate 135 H 134 H 137 H Respiratory Rate 23 Blood Pressure 110/68 Pulse Oximetry 98 98 Oxygen Delivery Method Nasal Cannula Oxygen Flow Rate 1 Fraction of Inspired Oxygen 24 01/14/24 09:07 Pulse Rate 136 H Respiratory Rate Blood Pressure 111/72 Pulse Oximetry Oxygen Delivery Method Oxygen Flow Rate Fraction of Inspired Oxygen Fraction of Inspired Oxygen 24 SaO2/FiO2 Ratio 408 Oxygen Delivery Method Nasal Cannula Oxygen Flow Rate 1 Narrative Exam Narrative: General:? Chronically ill appearing, no acute distress. HEENT:? Normocephalic, atraumatic, extraocular muscles intact, oral pharynx is clear and mucous membranes are moist. Neck: supple and symmetric, trachea is midline, no cervical adenopathy. Negative for JVD Chest:? Normal AP diameter and contour without kyphoscoliosis, no tachypnea, equal chest rise bilaterally. Lungs:? CTA b/l no wheezing rhonchi or rales. Cardio:?tachycardic, irregularly irregular no m/r/g Abdomen: S NT ND. Musculoskeletal:? Muscle strength and tone are equal within normal limits, no deformity. Extremities: No edema or joint effusions. No cyanosis or clubbing. Skin:? Please see pictures for decubitus ulcer Objective Labs 01/14/24 04:00 01/14/24 04:00 Labs: Laboratory Results - last 24 hr 01/13/24 01/14/24 15:21 04:00 WBC 15.5 H RBC 3.78 L Hgb 11.4 L Hct 34.8 L MCV 92.1 MCH 30.2 MCHC 32.8 RDW 14.5 Plt Count 345 Neut % (Auto) 77.6 H Lymph % (Auto) 10.5 L [place] % (Auto) 8.7 Eos % (Auto) 2.9 Baso % (Auto) 0.3 Neut # (Auto) 44834 H Lymph # (Auto) 1600 [place] # (Auto) 1400 H Eos # (Auto) 400 Baso # (Auto) 0 Sodium 136 L 136 L Potassium 3.7 3.6 Chloride 99 98 Carbon Dioxide 35 H 35 H BUN 23 H 19 H Creatinine 0.65 0.54 Estimated GFR > 60 > 60 BUN/Creatinine Ratio 35.4 H 35.2 H Glucose 108 93 Calcium 8.4 8.5 Magnesium 2.0 Total Bilirubin 0.8 0.8 AST 74 H 72 H ALT 79 H 77 H Alkaline Phosphatase 86 101 Total Protein 6.1 L 6.5 Albumin 3.0 L 3.3 L Globulin 3.1 3.2 Albumin/Globulin Ratio 1.0 1.0 PFSH Medical History Do not resuscitate Alzheimer's dementia Venous ulcer of right leg Mild cognitive impairment Abrasion of left heel Aortic stenosis Venous (peripheral) insufficiency History of colon cancer Obstructive sleep apnea History of left breast cancer Polyneuropathy, unspecified Acquired hypothyroidism Impaired fasting glucose Mixed hyperlipidemia Essential hypertension History of subdural hematoma Chronic anticoagulation Chronic atrial fibrillation Eczema (~2014) Tinnitus (~1999) Cataracts, bilateral (~2000) Arthritis Surgical History Anesthesia History of colon surgery History of thyroid surgery History of hysterectomy (~1979) Family History Mother Cancer Father Heart disease Sister Cancer Social History marital status: household members: spouse Smoking Status: Former smoker alcohol intake: current substance use type: does not use Assessment & Plan Assessment & Plan narrative: 88 years old female with a past medical history of hypertension, aortic stenosis, dementia, afib with chronic anticoagulation and multiple other medical issues including recent hospitalization for weakness possibly due to urinary tract infection admitted for afib with RVR, also found to have large decubitus ulcer on her sacrum much worse than previous admission. 1. Chronic A-fib with RVR - Completed amiodarone infusion, Now 200 mg PO BID and restarted home metoprolol (IR). No response to PO dilt this morning. Changed to metoprolol succinate yesterday from tartarate, and will increase metoprolol succinate to 75 mg BID. - continue home apixaban, may need to hold if debridement is needed. 2. Possible sepsis secondary to Sacral decubitus ulcer with elevated bilirubin, acute metabolic encephalopathy, acute respiratory failure with hypoxia - started ceftriaxone and vancomycin for ulcer, consulted surgery pending formal evaluation, discussed with them today and no debridement is recommended currently. - mild AST/ALT elevations and bilirubin, though no pain on exam, and now downtrending. - hold home valsartan given low BP, need for rate control - SOFA score is 3 - wound care consultation ordered 3. Hypothyroidism - continue home levothyroxine. 4. cognitive impairment - added seroquel with worsening encephalopathy likely hospital delirium vs sepsis. 5. Recent fall with gait instability. physical and Occupational Therapy 6. Dyspnea with concerns for pulmonary edema. Did receive IV diuresis in ED.Will hold on further at this time in favor of rate control. Monitor closely suspect more from the A-fib. TTE is unremarkable. Patient is a DNR per POLST form. Surrogate is patient's spouse DVT: on apixaban I have utilized all available immediate resources to obtain, update, or review the patient's current medications. Dispo: can downgrade to floor care now that amiodarone is done. inpatient status currently. Will return to SNF once rate is better controlled. I spent 30 minutes providing critical care management this patient. This excludes time spent in performing separately billed procedures. Additional history obtained via discussions with the nursing staff and case management. These discussions contributed to the creation of the above assessment and plan. I have reviewed patient's presenting documentation, labs, and imaging personally. Time-Based Coding :: [TOTAL MINUTES] spent with patient and on the chart (including review of chart, obtaining history, exam, reviewing outside data, placing orders, documenting exam and treatment plan, and counseling patient) on [DATE].
[2024-01-14] MEDS: cefTRIAXone 1,000 MG in SODIUM CHLORIDE 0.9% 100 ML 200 MG IV (14:39)
--- NOTE | 2024-01-14 16:28 | PM.CN ---
History of Present Illness Consult details Date Patient Seen: 01/14/24 Time Patient Seen: 15:30 Chief complaint: Increased work of breathing Narrative: The patient is an 88-year-old female with a history of atrial fibrillation, aortic stenosis, lymphedema, hypertension, and peripheral neuropathy who recently had an episode of weakness and fell. She was seated for approximately 24 hours. The patient was admitted to the hospital with urosepsis and her condition improved. She was discharged to [facility] rehab and then readmitted January 12, 2024 with uncontrolled atrial fibrillation. Patient was noted to have a large sacral decubitus and a wound consult was requested for further recommendations. It is not clear how long the ulcer has been present. She does report that there is some discomfort associated with the ulcer and some slight foul drainage. She was seen by the surgical service who did not feel that debridement was necessary. It iis anticipated that she will be discharged back to [facility] in the next few days. The patient has previously been seen at the wound center for treatment of lower extremity ulcers. The patient's reports that she has had a significantly decreased appetite. She is nonambulatory. The patient has had a low grade fever and leukocytosis. She is on chronic anticoagulation. The patient is not currently receiving any antibiotic therapy. Meds Home Medications and Allergies Home Medications Medication Instructions Recorded Confirmed Type sennosides 8.6 mg tablet (Senokot) 8.6 mg DAILY 10/05/18 01/13/24 History acetaminophen 325 mg tablet 650 mg PO TID 05/23/22 01/13/24 History calcium 600 mg capsule 600 mg PO BID 05/23/22 01/13/24 History loratadine 10 mg tablet (Claritin) 10 mg PO DAILY 05/23/22 01/13/24 History levothyroxine 125 mcg tablet 125 mcg PO QAM #90 tabs 03/23/23 01/13/24 Rx metoprolol tartrate 50 mg tablet 50 mg PO BID #180 tabs 04/03/23 01/13/24 Rx diltiazem HCl 240 mg 240 mg PO QAM #90 caps 04/22/23 01/13/24 Rx capsule,extended release 24 hr apixaban 5 mg tablet (Eliquis) 5 mg PO BID #180 tabs 07/10/23 01/13/24 Rx atorvastatin 20 mg tablet (Lipitor) 20 mg PO DAILY #90 tabs 12/30/23 01/13/24 Rx valsartan 160 mg tablet 160 mg PO DAILY #90 tabs 12/30/23 01/13/24 Rx folic acid 400 mcg tablet 0.4 mg PO DAILY 01/13/24 01/13/24 History mecobalamin (vitamin B12) 1,000 1,000 mcg PO DAILY 01/13/24 01/13/24 History mcg chewable tablet Allergies Allergy/AdvReac Type Severity Reaction Status Date / Time allopurinol Allergy Intermediate Fatigued Verified 01/06/24 17:38 Penicillins Allergy Mild RASH Verified 01/06/24 17:38 adhesive Allergy Unknown Verified 01/06/24 17:38 donepezil AdvReac Intermediate Diarrhea Verified 01/06/24 17:38 codeine AdvReac Unknown Verified 01/06/24 17:38 Review of Systems Respiratory Comments: Shortness of breath Neurologic Comments: Generalized weakness Exam Vital Signs (past 8 hours): - 01/14/24 08:37 01/14/24 08:48 01/14/24 09:04 Pulse Rate 135 H 134 H 137 H Respiratory Rate 23 Blood Pressure 110/68 Pulse Oximetry 98 98 Oxygen Delivery Method Nasal Cannula Oxygen Flow Rate 1 Fraction of Inspired Oxygen 24 01/14/24 09:07 Pulse Rate 136 H Respiratory Rate Blood Pressure 111/72 Pulse Oximetry Oxygen Delivery Method Oxygen Flow Rate Fraction of Inspired Oxygen Fraction of Inspired Oxygen 24 SaO2/FiO2 Ratio 408 Oxygen Delivery Method Nasal Cannula Oxygen Flow Rate 1 Const Other: Elderly female who is somnolent and very weak but is arousable, no apparent distress Resp Other: Slightly unlabored respirations Skin Other: Large unstageable sacral decubitus with necrotic skin and some central fluctuance, slight foul drainage noted, no erythema Objective Labs 01/14/24 04:00 01/14/24 04:00 Labs: Laboratory Results - last 24 hr 01/14/24 04:00 WBC 15.5 H RBC 3.78 L Hgb 11.4 L Hct 34.8 L MCV 92.1 MCH 30.2 MCHC 32.8 RDW 14.5 Plt Count 345 Neut % (Auto) 77.6 H Lymph % (Auto) 10.5 L [place] % (Auto) 8.7 Eos % (Auto) 2.9 Baso % (Auto) 0.3 Neut # (Auto) 87128 H Lymph # (Auto) 1600 [place] # (Auto) 1400 H Eos # (Auto) 400 Baso # (Auto) 0 Sodium 136 L Potassium 3.6 Chloride 98 Carbon Dioxide 35 H BUN 19 H Creatinine 0.54 Estimated GFR > 60 BUN/Creatinine Ratio 35.2 H Glucose 93 Calcium 8.5 Magnesium 2.0 Total Bilirubin 0.8 AST 72 H ALT 77 H Alkaline Phosphatase 101 Total Protein 6.5 Albumin 3.3 L Globulin 3.2 Albumin/Globulin Ratio 1.0 PFSH Medical History Do not resuscitate Alzheimer's dementia Venous ulcer of right leg Mild cognitive impairment Abrasion of left heel Aortic stenosis Venous (peripheral) insufficiency History of colon cancer Obstructive sleep apnea History of left breast cancer Polyneuropathy, unspecified Acquired hypothyroidism Impaired fasting glucose Mixed hyperlipidemia Essential hypertension History of subdural hematoma Chronic anticoagulation Chronic atrial fibrillation Eczema (~2014) Tinnitus (~1999) Cataracts, bilateral (~1999) Arthritis Surgical History Anesthesia History of colon surgery History of thyroid surgery History of hysterectomy (~1979) Family History Mother Cancer Father Heart disease Sister Cancer Social History marital status: household members: spouse Tobacco & Substance Use Smoking Status: Former smoker alcohol intake: current substance use type: does not use Assessment & Plan Assessment and plan (1) Pressure ulcer of sacral region, unstageable: Status: Acute Assessment & Plan narrative: The patient has large unstageable sacral decubitus. There is extensive overlying necrotic skin that ultimately will need surgical debridement. In the meantime would recommend painting with Betadine twice a day and using ABD pad to help control drainage and keep skin dry. Also recommend pressure offloading with frequent turning, protein supplementation, follow up at wound center after discharge for further treatment. Time-Based Coding :: [45] spent with patient and on the chart (including review of chart, obtaining history, exam, reviewing outside data, placing orders, documenting exam and treatment plan, and counseling patient) on [01/14/24].
[2024-01-14 16:38] LABS: Vancomycin Trough 15.4 ug/mL (10-20)
[2024-01-14] MEDS: AMIODARONE 200 MG TABLET PO (17:17)
[2024-01-14] MEDS: SODIUM CHLORIDE 0.9% FLUSH 10 ML IV (20:18)
[2024-01-14] MEDS: METOPROLOL ER 50 MG TABLET 75 MG PO (21:26)
[2024-01-15] VITALS (27 sets, daily range): BP systolic 84–148; BP diastolic 52–82; PULSE 109–153; RESP 20–46; TEMP 36.1–36.5; O2SAT 90–99
[2024-01-15] MEDS: ACETAMINOPHEN 325 MG TABLET 650 MG PO ×2 (00:51→08:40)
[2024-01-15 05:50] LABS: Add Manual Diff / Slide Review NO; Basophils Absolute Auto 100 /uL (0-100); Basophils Percent Auto 0.4 % (0-2); Eosinophils Absolute Auto 400 /uL (0-450); Eosinophils Percent Auto 2.5 % (2-4); Hematocrit 32.1 % (36-46); Hemoglobin 10.5 g/dL (12.0-16.0); Lymphocytes Absolute Auto 1300 /uL (1100-4500); Lymphocytes Percent Auto 8.5 % (25-40); Mean Corpuscular HGB Conc 32.6 % (30-36); Mean Corpuscular Hemoglobin 29.8 PG (26-34); Mean Corpuscular Volume 91.4 fL (80-100); Monocytes Absolute Auto 1100 /uL (0-900); Monocytes Percent Auto 7.3 % (3-14); Neutrophils Absolute Auto 12500 /uL (1500-7000); Neutrophils Percent Auto 81.3 % (50-75); Platelet Count 298 X10^3/uL (150-400); Red Blood Cell Count 3.52 X10^6/uL (4.0-5.2); Red Cell Distribution Width 14.6 % (11.6-14.8); White Blood Cell Count 15.4 X10^3/uL (4.5-11.0)
[2024-01-15 05:54] LABS: Alanine Aminotransferase 51 IU/L (<35); Albumin 2.8 g/dL (3.5-5.0); Alkaline Phosphatase 85 U/L (38-126); Aspartate Aminotransferase 39 IU/L (14-36); BUN Creatinine Ratio 41.3 (6-22); Bilirubin Total 0.8 mg/dL (0.2-1.3); Blood Urea Nitrogen 19 mg/dL (7-17); Calcium 8.4 mg/dL (8.4-10.2); Carbon Dioxide 33 mmol/L (22-32); Chloride 99 mmol/L (98-107); Estimated Glomerular Filt Rate > 60 mL/min (>60); Globulin 2.8 g/dL (1.7-4.1); Glucose 92 mg/dL (80-110); HEMOLYSIS 25 (0-50); Potassium 3.5 mmol/L (3.4-5.1); Sodium 133 mmol/L (137-145); Total Protein 5.6 g/dL (6.3-8.2)
[2024-01-15 06:07] LABS: Magnesium 1.9 mg/dL (1.6-2.3)
[2024-01-15] MEDS: VANCOMYCIN 1,000 MG/200 ML PIGGYBACK 200 MG IV (06:19)
[2024-01-15] MEDS: LEVOTHYROXINE 125 MCG TABLET PO (06:19)
[2024-01-15] MEDS: AMIODARONE 200 MG TABLET PO ×2 (08:29→17:27)
[2024-01-15] MEDS: METOPROLOL ER 50 MG TABLET 75 MG PO (08:30)
[2024-01-15] MEDS: APIXABAN 5 MG TABLET PO ×2 (08:33→21:04)
[2024-01-15] MEDS: SODIUM CHLORIDE 0.9% FLUSH 10 ML IV ×2 (08:33→21:29)
[2024-01-15] MEDS: ATORVASTATIN 20 MG TABLET PO (08:33)
[2024-01-15] MEDS: SENNOSIDES 8.6 MG TABLET PO (08:33)
[2024-01-15] MEDS: methocarbamoL 500 MG TABLET PO (08:40)
[2024-01-15] MEDS: POTASSIUM CHLORIDE 20 MEQ TAB 40 MEQ PO (09:59)
--- NOTE | 2024-01-15 12:56 | CM.DPC ---
DCP Continued: Reviewed EMR and team rounds for pt?s medical status. Per rounds, no surgical debridement scheduled at this time. Pt continuing with antibiotic therapy and wound care. [facility] and it was reported that pt can be accepted on Thursday, 01/17 at the earliest due to staffing. Per [facility], pt's insurance auth is valid until 01/21. DCP relayed re-acceptance at [facility] on 01/17 to pt's RN. Plan: Anticipating pt to discharge to [facility] on Thursday, 01/17, transport time pending. CM Team will continue to follow for coordination of discharge plans. TIFFANIE Wood
[2024-01-15] MEDS: cefTRIAXone 1,000 MG in SODIUM CHLORIDE 0.9% 100 ML 200 MG IV (14:13)
--- NOTE | 2024-01-15 16:28 | P.PN_ITS ---
Subjective Subjective Interval history: Somewhat improved, denies pain or other complaints today. Heart rate remains uncontrolled from 110s to 130s. Wound care wrote There is extensive overlying necrotic skin that ultimately will need surgical debridement. In the meantime would recommend painting with Betadine twice a day and using ABD pad to help control drainage and keep skin dry. Also recommend pressure offloading with frequent turning, protein supplementation, follow up at wound center after discharge for further treatment. Have had two surgeons evaluate for debridement which was not recommended. Remains on antibiotic, discontinued vancomycin today with negative MRSA swab. Exam Vital Signs (past 8 hours): - 01/15/24 08:30 01/15/24 09:00 01/15/24 09:00 Temperature Pulse Rate 153 H 118 H Respiratory Rate Blood Pressure 96/59 L 97/62 97/62 Pulse Oximetry 01/15/24 09:00 01/15/24 10:00 01/15/24 10:00 Temperature Pulse Rate 124 H 115 H Respiratory Rate 30 H 20 Blood Pressure 86/58 L Pulse Oximetry 94 94 01/15/24 11:00 01/15/24 11:00 01/15/24 12:00 Temperature Pulse Rate 115 H Respiratory Rate 31 H Blood Pressure 85/52 L 92/65 Pulse Oximetry 94 01/15/24 12:00 01/15/24 13:00 01/15/24 13:00 Temperature Pulse Rate 118 H 127 H Respiratory Rate 32 H 28 H Blood Pressure 101/66 Pulse Oximetry 92 92 01/15/24 14:00 01/15/24 14:00 01/15/24 15:00 Temperature 97.5 F L Pulse Rate 124 H Respiratory Rate 32 H Blood Pressure 99/60 94/61 Pulse Oximetry 01/15/24 15:00 01/15/24 16:00 01/15/24 16:00 Temperature Pulse Rate 119 H 128 H Respiratory Rate 20 25 H Blood Pressure 104/56 L Pulse Oximetry Fraction of Inspired Oxygen 24 SaO2/FiO2 Ratio 408 Oxygen Delivery Method Room Air Oxygen Flow Rate 1 Narrative Exam Narrative: General:? Chronically ill appearing, no acute distress. HEENT:? Normocephalic, atraumatic, extraocular muscles intact, oral pharynx is clear and mucous membranes are moist. Neck: supple and symmetric, trachea is midline, no cervical adenopathy. Negative for JVD Chest:? Normal AP diameter and contour without kyphoscoliosis, no tachypnea, equal chest rise bilaterally. Lungs:? CTA b/l no wheezing rhonchi or rales. Cardio:?tachycardic, irregularly irregular no m/r/g Abdomen: S NT ND. Musculoskeletal:? Muscle strength and tone are equal within normal limits, no deformity. Extremities: No edema or joint effusions. No cyanosis or clubbing. Skin:? Please see pictures for decubitus ulcer Objective Labs 01/15/24 03:50 01/15/24 03:50 Labs: Laboratory Results - last 24 hr 01/14/24 01/15/24 14:30 03:50 WBC 15.4 H RBC 3.52 L Hgb 10.5 L Hct 32.1 L MCV 91.4 MCH 29.8 MCHC 32.6 RDW 14.6 Plt Count 298 Neut % (Auto) 81.3 H Lymph % (Auto) 8.5 L [place] % (Auto) 7.3 Eos % (Auto) 2.5 Baso % (Auto) 0.4 Neut # (Auto) 08071 H Lymph # (Auto) 1300 [place] # (Auto) 1100 H Eos # (Auto) 400 Baso # (Auto) 100 Sodium 133 L Potassium 3.5 Chloride 99 Carbon Dioxide 33 H BUN 19 H Creatinine 0.46 L Estimated GFR > 60 BUN/Creatinine Ratio 41.3 H Glucose 92 Calcium 8.4 Magnesium 1.9 Total Bilirubin 0.8 AST 39 H ALT 51 H Alkaline Phosphatase 85 Total Protein 5.6 L Albumin 2.8 L Globulin 2.8 Albumin/Globulin Ratio 1.0 Vancomycin Trough 15.4 PFSH Medical History Do not resuscitate Alzheimer's dementia Venous ulcer of right leg Mild cognitive impairment Abrasion of left heel Aortic stenosis Venous (peripheral) insufficiency History of colon cancer Obstructive sleep apnea History of left breast cancer Polyneuropathy, unspecified Acquired hypothyroidism Impaired fasting glucose Mixed hyperlipidemia Essential hypertension History of subdural hematoma Chronic anticoagulation Chronic atrial fibrillation Eczema (~2014) Tinnitus (~1999) Cataracts, bilateral (~1999) Arthritis Surgical History Anesthesia History of colon surgery History of thyroid surgery History of hysterectomy (~1979) Family History Mother Cancer Father Heart disease Sister Cancer Social History marital status: household members: spouse Smoking Status: Former smoker alcohol intake: current substance use type: does not use Assessment & Plan Assessment & Plan narrative: 88 years old female with a past medical history of hypertension, aortic stenosis, dementia, afib with chronic anticoagulation and multiple other medical issues including recent hospitalization for weakness possibly due to urinary tract infection admitted for afib with RVR, also found to have large decubitus ulcer on her sacrum much worse than previous admission. 1. Chronic A-fib with RVR - Completed amiodarone infusion, Now 200 mg PO BID and restarted home metoprolol (IR). No response to PO dilt except for lower BP. Changed to metoprolol succinate from tartarate, and will increase further again today to metoprolol succinate 100 BID. - continue home apixaban, may need to hold if debridement is needed. - if no continued success, consider transfer for cardiology consultation or cardioversion, however these have reportedly been unsuccessful in the past. 2. Possible sepsis secondary to Sacral decubitus ulcer with elevated bilirubin, acute metabolic encephalopathy, acute respiratory failure with hypoxia - started ceftriaxone and vancomycin for ulcer, consulted surgery discussed with them and no debridement is recommended currently though wound care provider states will need at some point. - mild AST/ALT elevations and bilirubin, though no pain on exam, and now downtrending. - hold home valsartan given low BP, need for rate control - SOFA score is 3 - wound care consultation appreciated. 3. Hypothyroidism - continue home levothyroxine. 4. cognitive impairment - added seroquel with worsening encephalopathy likely hospital delirium vs sepsis. 5. Recent fall with gait instability. physical and Occupational Therapy 6. Dyspnea with concerns for pulmonary edema. Did receive IV diuresis in ED.Will hold on further at this time in favor of rate control. Monitor closely suspect more from the A-fib. TTE is unremarkable. Have had some prn diuresis since admission, though limited with low BP. Patient is a DNR per POLST form. Surrogate is patient's spouse DVT: on apixaban I have utilized all available immediate resources to obtain, update, or review the patient's current medications. Dispo: inpatient status currently. Will return to SNF once rate is better controlled. Hopefully 1-2 days. Additional history obtained via discussions with the nursing staff and case management. These discussions contributed to the creation of the above assessment and plan. I have reviewed patient's presenting documentation, labs, and imaging personally. Time-Based Coding :: [TOTAL MINUTES] spent with patient and on the chart (including review of chart, obtaining history, exam, reviewing outside data, placing orders, documenting exam and treatment plan, and counseling patient) on [DATE].
[2024-01-15] MEDS: QUETIAPINE 25 MG TABLET PO (21:04)
[2024-01-15] MEDS: METOPROLOL ER 50 MG TABLET 100 MG PO (21:05)
[2024-01-16] VITALS (29 sets, daily range): BP systolic 91–131; BP diastolic 53–89; PULSE 101–129; RESP 21–38; TEMP 36.1–36.9; O2SAT 86–100
--- NOTE | 2024-01-16 02:40 | PC.NURSE ---
Pt remained in Afib RVR, rates 110-150s. SBP labile 80-120. Pt intermittently agitated and yelling that we were trying to kill her during cares. Refused to swallow meds or spit them out so they dissolved on her tongue. intermittently on 1-2 L NC d/t O2 sat's <90%.
[2024-01-16 04:47] LABS: Add Manual Diff / Slide Review NO; Basophils Absolute Auto 100 /uL (0-100); Basophils Percent Auto 0.5 % (0-2); Eosinophils Absolute Auto 300 /uL (0-450); Eosinophils Percent Auto 2.5 % (2-4); Hematocrit 32.4 % (36-46); Hemoglobin 10.7 g/dL (12.0-16.0); Lymphocytes Absolute Auto 1400 /uL (1100-4500); Lymphocytes Percent Auto 10.6 % (25-40); Mean Corpuscular HGB Conc 33.1 % (30-36); Mean Corpuscular Hemoglobin 30.3 PG (26-34); Mean Corpuscular Volume 91.3 fL (80-100); Monocytes Absolute Auto 1200 /uL (0-900); Monocytes Percent Auto 8.5 % (3-14); Neutrophils Absolute Auto 10700 /uL (1500-7000); Neutrophils Percent Auto 77.9 % (50-75); Platelet Count 327 X10^3/uL (150-400); Red Blood Cell Count 3.55 X10^6/uL (4.0-5.2); Red Cell Distribution Width 14.5 % (11.6-14.8); White Blood Cell Count 13.7 X10^3/uL (4.5-11.0)
[2024-01-16 05:00] LABS: Alanine Aminotransferase 44 IU/L (<35); Alkaline Phosphatase 102 U/L (38-126); Aspartate Aminotransferase 30 IU/L (14-36); Bilirubin Total 0.8 mg/dL (0.2-1.3); Blood Urea Nitrogen 16 mg/dL (7-17); Calcium 8.6 mg/dL (8.4-10.2); Carbon Dioxide 32 mmol/L (22-32); Chloride 101 mmol/L (98-107); Estimated Glomerular Filt Rate > 60 mL/min (>60); Globulin 3.1 g/dL (1.7-4.1); Glucose 110 mg/dL (80-110); HEMOLYSIS < 15 (0-50); Potassium 4.1 mmol/L (3.4-5.1); Sodium 133 mmol/L (137-145); Total Protein 6.1 g/dL (6.3-8.2)
[2024-01-16 05:29] LABS: Magnesium 1.9 mg/dL (1.6-2.3)
[2024-01-16] MEDS: LEVOTHYROXINE 125 MCG TABLET PO (06:09)
[2024-01-16] MEDS: AMIODARONE 200 MG TABLET PO ×2 (08:40→16:10)
--- NOTE | 2024-01-16 09:03 | PM.PN.1 ---
Subjective Subjective Interval history: Interval history: Somewhat improved, denies pain or other complaints today. Heart rate remains uncontrolled from 110s to 130s. Wound care wrote There is extensive overlying necrotic skin that ultimately will need surgical debridement. In the meantime would recommend painting with Betadine twice a day and using ABD pad to help control drainage and keep skin dry. Also recommend pressure offloading with frequent turning, protein supplementation, follow up at wound center after discharge for further treatment. Have had two surgeons evaluate for debridement which was not recommended. Remains on antibiotic, discontinued vancomycin today with negative MRSA swab. S: She denies pain or discomfort. Exam Vital Signs (past 8 hours): - 01/16/24 02:00 01/16/24 02:00 01/16/24 03:00 Temperature Pulse Rate 127 H 129 H Respiratory Rate 26 H 28 H Blood Pressure 124/85 Pulse Oximetry 94 94 Oxygen Flow Rate 2 2 01/16/24 03:00 01/16/24 03:14 01/16/24 04:00 Temperature Pulse Rate Respiratory Rate Blood Pressure 112/74 122/87 Pulse Oximetry Oxygen Flow Rate 3 01/16/24 04:00 01/16/24 05:00 01/16/24 05:00 Temperature 97.4 F L Pulse Rate 118 H 114 H Respiratory Rate 28 H 28 H Blood Pressure 117/71 Pulse Oximetry 92 95 Oxygen Flow Rate 2 2 01/16/24 06:00 Temperature Pulse Rate 127 H Respiratory Rate 29 H Blood Pressure 122/87 Pulse Oximetry 95 Oxygen Flow Rate 2 Fraction of Inspired Oxygen 24 SaO2/FiO2 Ratio 408 Oxygen Delivery Method Nasal Cannula Oxygen Flow Rate 2 Narrative Exam Narrative: NAD, alert and oriented. Fluent speech. Lungs are clear, normal rate and effort. Heart is irregular and tachycardic, no murmur gallop or rub. Abdomen is soft, non distended. Extremities are free of edema. Sacrum not examined. Objective Labs 01/16/24 04:07 01/16/24 04:07 Labs: Laboratory Results - last 24 hr 01/16/24 04:07 WBC 13.7 H RBC 3.55 L Hgb 10.7 L Hct 32.4 L MCV 91.3 MCH 30.3 MCHC 33.1 RDW 14.5 Plt Count 327 Neut % (Auto) 77.9 H Lymph % (Auto) 10.6 L [place] % (Auto) 8.5 Eos % (Auto) 2.5 Baso % (Auto) 0.5 Neut # (Auto) 27135 H Lymph # (Auto) 1400 [place] # (Auto) 1200 H Eos # (Auto) 300 Baso # (Auto) 100 Sodium 133 L Potassium 4.1 Chloride 101 Carbon Dioxide 32 BUN 16 Creatinine 0.50 L Estimated GFR > 60 BUN/Creatinine Ratio 32.0 H Glucose 110 Calcium 8.6 Magnesium 1.9 Total Bilirubin 0.8 AST 30 ALT 44 H Alkaline Phosphatase 102 Total Protein 6.1 L Albumin 3.0 L Globulin 3.1 Albumin/Globulin Ratio 1.0 [facility] Medical History Do not resuscitate Alzheimer's dementia Venous ulcer of right leg Mild cognitive impairment Abrasion of left heel Aortic stenosis Venous (peripheral) insufficiency History of colon cancer Obstructive sleep apnea History of left breast cancer Polyneuropathy, unspecified Acquired hypothyroidism Impaired fasting glucose Mixed hyperlipidemia Essential hypertension History of subdural hematoma Chronic anticoagulation Chronic atrial fibrillation Eczema (~2014) Tinnitus (~1999) Cataracts, bilateral (~1999) Arthritis Surgical History Anesthesia History of colon surgery History of thyroid surgery History of hysterectomy (~1979) Family History Mother Cancer Father Heart disease Sister Cancer Social History marital status: household members: spouse Smoking Status: Former smoker alcohol intake: current substance use type: does not use Assessment & Plan Assessment & Plan narrative: 88 years old female with a past medical history of hypertension, aortic stenosis, dementia, afib with chronic anticoagulation and multiple other medical issues including recent hospitalization for weakness possibly due to urinary tract infection admitted for afib with RVR, also found to have large decubitus ulcer on her sacrum much worse than previous admission. 1. Chronic A-fib with RVR, present on admission and active. - Completed amiodarone infusion, Now 200 mg PO BID and restarted home metoprolol (IR). No response to PO dilt except for lower BP. Changed to metoprolol succinate from tartarate, and will increase further again today to metoprolol succinate 100 BID. - continue home apixaban, may need to hold if debridement is needed. - add IV metoprolol Q6. Variable ability to take oral medications as of the morning of January 15. 2. Sepsis secondary to sacral decubitus ulcer with acute metabolic encephalopathy and acute respiratory failure with hypoxia, present on admission and active. - started ceftriaxone and vancomycin for ulcer, consulted surgery discussed with them and no debridement is recommended currently though wound care provider states will need at some point. - mild AST/ALT elevations and bilirubin, though no pain on exam, and now downtrending. - hold home valsartan given low BP, need for rate control - SOFA score was 3 - wound care consultation appreciated. 3. Hypothyroidism, present on admission and active. - continue home levothyroxine. 4. Cognitive impairment, present on admission and active. - added seroquel with worsening encephalopathy likely hospital delirium vs sepsis. 5. Recent fall with gait instability, present on admission and active. . physical and Occupational Therapy 6. Dyspnea with concerns for pulmonary edema. Did receive IV diuresis in ED.Will hold on further at this time in favor of rate control. Monitor closely suspect more from the A-fib. TTE is unremarkable. Have had some prn diuresis since admission, though limited with low BP. Met and discussed with . She is not doing that well or progressing. He understands this. His goal is primarily that then over life is comfortable. We will continue to try treatment with antibiotics, wound care, and rate control but her prognosis remains guarded. Patient is a DNR per POLST form. Surrogate is patient's spouse DVT: on apixaban Time-Based Coding :: [TOTAL MINUTES] spent with patient and on the chart (including review of chart, obtaining history, exam, reviewing outside data, placing orders, documenting exam and treatment plan, and counseling patient) on [DATE].
[2024-01-16] MEDS: ATORVASTATIN 20 MG TABLET PO (10:18)
[2024-01-16] MEDS: APIXABAN 5 MG TABLET PO ×2 (10:20→21:03)
[2024-01-16] MEDS: SODIUM CHLORIDE 0.9% FLUSH 10 ML IV ×2 (10:21→21:04)
[2024-01-16] MEDS: SENNOSIDES 8.6 MG TABLET PO (10:21)
[2024-01-16] MEDS: METOPROLOL TARTRATE 5 MG/5 ML INJ IV ×3 (10:30→22:19)
--- NOTE | 2024-01-16 12:27 | PC.NURSE ---
Pt refusing oxygen at this time, sats are 94% on room air. Will continue to monitor
[2024-01-16] MEDS: cefTRIAXone 1,000 MG in SODIUM CHLORIDE 0.9% 100 ML 200 MG IV (14:05)
[2024-01-16] MEDS: QUETIAPINE 25 MG TABLET PO (21:03)
[2024-01-16] MEDS: METOPROLOL ER 50 MG TABLET 100 MG PO (21:04)
[2024-01-17] VITALS (30 sets, daily range): BP systolic 78–128; BP diastolic 50–83; PULSE 93–119; RESP 23–45; TEMP 36.3–36.4; O2SAT 90–100
[2024-01-17] MEDS: METOPROLOL TARTRATE 5 MG/5 ML INJ IV (04:59)
[2024-01-17] MEDS: ATORVASTATIN 20 MG TABLET PO (08:10)
[2024-01-17] MEDS: APIXABAN 5 MG TABLET PO ×2 (08:10→20:37)
[2024-01-17] MEDS: LEVOTHYROXINE 125 MCG TABLET PO (08:10)
[2024-01-17] MEDS: METOPROLOL ER 50 MG TABLET 100 MG PO ×2 (08:10→20:37)
[2024-01-17] MEDS: AMIODARONE 200 MG TABLET PO ×2 (08:10→16:46)
[2024-01-17] MEDS: ACETAMINOPHEN 325 MG TABLET 650 MG PO (08:10)
[2024-01-17] MEDS: SODIUM CHLORIDE 0.9% FLUSH 10 ML IV ×2 (08:11→20:38)
--- NOTE | 2024-01-17 08:36 | P.PN_ITS ---
Subjective Subjective Interval history: She denies any pain, or dyspnea. , no nausea, or other issues. She did take her oral medications this a.m.. Exam Vital Signs (past 8 hours): - 01/17/24 01:00 01/17/24 01:00 01/17/24 01:02 Temperature Pulse Rate 113 H 117 H Respiratory Rate 32 H 33 H Blood Pressure 107/64 Pulse Oximetry 95 98 Oxygen Flow Rate 2 2 2 01/17/24 02:00 01/17/24 02:00 01/17/24 03:00 Temperature Pulse Rate 116 H Respiratory Rate 45 H Blood Pressure 128/80 116/73 Pulse Oximetry 99 Oxygen Flow Rate 2 2 2 01/17/24 03:00 01/17/24 03:34 01/17/24 04:00 Temperature Pulse Rate 109 H 104 H Respiratory Rate 40 H 23 Blood Pressure 116/73 Pulse Oximetry 99 96 Oxygen Flow Rate 2 2 2 01/17/24 04:00 01/17/24 04:28 01/17/24 05:00 Temperature Pulse Rate 108 H 115 H Respiratory Rate 45 H 29 H Blood Pressure 105/56 L Pulse Oximetry 99 98 Oxygen Flow Rate 2 2 01/17/24 05:00 01/17/24 06:00 01/17/24 06:00 Temperature Pulse Rate 107 H 119 H Respiratory Rate 24 32 H Blood Pressure 126/83 Pulse Oximetry 91 98 Oxygen Flow Rate 01/17/24 07:00 01/17/24 07:00 Temperature 97.3 F L Pulse Rate 104 H Respiratory Rate 28 H Blood Pressure 101/69 Pulse Oximetry 100 Oxygen Flow Rate Fraction of Inspired Oxygen 24 SaO2/FiO2 Ratio 408 Oxygen Delivery Method Nasal Cannula Oxygen Flow Rate 2 Narrative Exam Narrative: NAD, alert and oriented. Fluent speech. Lungs are clear, normal rate and effort. Heart is regular, no murmur gallop or rub. Abdomen is soft, non distended. Extremities are free of edema. Sacrum not examined. Objective Labs 01/16/24 04:07 01/16/24 04:07 [facility] Medical History Do not resuscitate Alzheimer's dementia Venous ulcer of right leg Mild cognitive impairment Abrasion of left heel Aortic stenosis Venous (peripheral) insufficiency History of colon cancer Obstructive sleep apnea History of left breast cancer Polyneuropathy, unspecified Acquired hypothyroidism Impaired fasting glucose Mixed hyperlipidemia Essential hypertension History of subdural hematoma Chronic anticoagulation Chronic atrial fibrillation Eczema (~2014) Tinnitus (~1999) Cataracts, bilateral (~1999) Arthritis Surgical History Anesthesia History of colon surgery History of thyroid surgery History of hysterectomy (~1979) Family History Mother Cancer Father Heart disease Sister Cancer Social History marital status: household members: spouse Smoking Status: Former smoker alcohol intake: current substance use type: does not use Assessment & Plan Assessment & Plan narrative: 1. Chronic A-fib with RVR, present on admission and active. - Completed amiodarone infusion. - continue home apixaban, may need to hold if debridement is needed. - added IV metoprolol Q6. Variable ability to take oral medications as of the morning of January 15. We will re-attempt oral medications this morning and hold IV metoprolol if she is able to tolerate her oral medications reliably. Rate control appears to be slightly better than yesterday. 2. Sepsis secondary to sacral decubitus ulcer with acute metabolic encephalopathy and acute respiratory failure with hypoxia, present on admission and improving. - started ceftriaxone and vancomycin for ulcer, consulted surgery discussed with them and no debridement is recommended currently though wound care provider states will need at some point. - mild AST/ALT elevations and bilirubin, though no pain on exam, and now downtrending. - hold home valsartan given low BP, need for rate control. - wound care consultation appreciated. 3. Hypothyroidism, present on admission and active. - continue home levothyroxine. 4. Cognitive impairment, present on admission and active. 5. Recent fall with gait instability, present on admission and active. . physical and Occupational Therapy 6. Dyspnea with concerns for pulmonary edema. Present on admission and improved. In general, she was very poor oral intake. She also is not moving around very much. Plan: -continue oral medications as tolerated. -continue antibiotics. -physical therapy assessment for [facility] facility request. She is not doing that well or progressing. He understands this. His goal is primarily that then over life is comfortable. We will continue to try treatment with antibiotics, wound care, and rate control but her prognosis remains guarded. Patient is a DNR per POLST form. Surrogate is patient's spouse DVT: on apixaban Time-Based Coding :: 30 min spent with patient and on the chart (including review of chart, obtaining history, exam, reviewing outside data, placing orders, documenting exam and treatment plan, and counseling patient) on 01/16.
--- NOTE | 2024-01-17 11:39 | CM.DPC ---
DCP Cont. Reviewed EMR and team rounds for status updates. Plan is to continue IV ABO's, monitor heart rate control, and PT will attempt to evaluate her today, per this [employer] OPERATOR's request. Plan is for her to go to [facility], however the [employer] auth has , and in order to submit a new one, we needed a PT note, even if it states that she was too weak at this time to participate. Family is looking for LTC placement. Will continue to monitor.
--- NOTE | 2024-01-17 12:01 | PT.IIE ---
Current Diagnoses Unspecified atrial fibrillation (01/12/24) Pressure ulcer of sacral region, unstageable (01/12/24) Pressure ulcer of sacral region, stage 4 (01/12/24) Surgical History (Last Reviewed 01/16/24 @ 09:04 by Johnnie Nuñez MD) Anesthesia History of colon surgery History of hysterectomy (~1979) History of thyroid surgery Medical History (Last Reviewed 01/16/24 @ 09:04 by Johnnie Nuñez MD) Abrasion of left heel Acquired hypothyroidism Alzheimer's dementia Aortic stenosis Arthritis Cataracts, bilateral (~1999) Chronic anticoagulation Chronic atrial fibrillation Do not resuscitate Eczema (~2014) Essential hypertension History of colon cancer History of left breast cancer History of subdural hematoma Impaired fasting glucose Mild cognitive impairment Mixed hyperlipidemia Obstructive sleep apnea Polyneuropathy, unspecified Tinnitus (~1999) Venous (peripheral) insufficiency Venous ulcer of right leg Physical Therapy Inpatient Evaluation/Re-Eval M1 PT/OT-IP Prior Functional Status Start: 01/17/24 10:16 Freq: NEEDED Status: Active Protocol: Document 01/17/24 11:25 MB (Rec: 01/17/24 12:01 MB [id number]) Medical Review Prior Functional Status Medical History Reviewed Yes Diet/Fluid Consistency Regular Communication Cognitive challenges, no spontaneous conversation and answers most questions Mobility and Gait At home, 4WW and assistance. Could not get into tub or walk-in shower and assisted with sponge baths Activities of Daily Living and IADL's See above Prior Functional Level (Other details) Recent fall when pt and fell at home and pt could then not get out of car, slept in car overnight and he called EMS to get her out of car. They came to hospital and she was d/cd to [facility] where she got one PT treatment to EOB and then she returned with a-fib issues Social History Household Members spouse Living Arrangements House Number of Floors (Floors) One Floor Number of Stairs To Enter/Railing? 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 Retired Additional Social History Comment states that pt sleeps in lift chair and that there is a raiser over toilet with hand rests and a seat in the shower M2 PT-IP Current Condition Start: 01/17/24 10:16 Freq: NEEDED Status: Active Protocol: Document 01/17/24 11:25 MB (Rec: 01/17/24 12:01 MB [id number]) Physical Therapy Current Condition Current Condition Evaluation Date 01/17/24 Treatment Diagnosis A-fib, recent fall before last adm M3 PT-IP Subjective Start: 01/17/24 10:16 Freq: NEEDED Status: Active Protocol: Document 01/17/24 11:25 MB (Rec: 01/17/24 12:01 MB [id number]) Subjective Physical Therapy Visit Type Type Initial Evaluation Visit Start Time 11:25 Visit Stop Time 11:45 Number of [employer]IT[employer] 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 Physical Therapy Visit Comments Patient Comments No spontaneous communication, is agreeable to PT Therapy Pain Assessment Pain When Pain Assessed At Rest Pain Present Pain Present Denied Pain M4 PT-IP Mobility and Gait Start: 01/17/24 10:16 Freq: NEEDED Status: Active Protocol: Document 01/17/24 11:25 MB (Rec: 01/17/24 12:01 MB [id number]) PT-Bed Mobility Assessment Rolling Level of Assist Contact Guard Assistance,1 Person Assistance Supine to Sit Supine to Sit Maximum Assistance,1 Person Assistance,Head of Bed Elevated,Bedrails Sit to Supine Sit to Supine 2 Person Assistance Scooting Scooting to Edge of Bed Dependent Scooting Up and Down in Bed Dependent PT-Transfer Assessment Comments Mobility Comments Pt initiates bed mobility to the right with HOB increased and PT uses pad to scoot her hips forward. Sitting balance EOB with legs dangling d/t bed height at it's lowest height requires CGA for static sitting. Two person assistance to get back to supine. O2 reader on left toes and foot is very cold. O2 sats on 1L remain in the 90s until pt is lying supine and then they drop to the high 70s/low 80s and PT raises HOB again. B feet with skin changes. PT-Balance Assessment Sitting Balance and Reactions Static Sitting Balance Ability Poor Dynamic Sitting Balance Ability Poor M5 PT-IP Objective Assessments Start: 01/17/24 10:16 Freq: NEEDED Status: Active Protocol: Document 01/17/24 11:25 MB (Rec: 01/17/24 12:01 MB [id number]) Orientation Orientation/Cognition Level of Alertness Confusional State Orientation Name,Birthday Language Function Ability No Deficits Noted Safety Awareness Decreased Safety Awareness Memory Description Short Term Impaired,Intermediate Impaired Gross Range of Motion Upper Extremity ROM Impairments Pt does not follow commands well Lower Extremity ROM Assessment Bilaterally Impaired Impairments Limited ability to follow commands for ROM and MMT, deficits in range and strength Strength Upper Extremity Strength Assessment Bilaterally Impaired Lower Extremity Strength Assessment Bilaterally Impaired Comments Strength Comments Pt cannot follow commands for strength testing M6 PT-IP Treatment Start: 01/17/24 10:16 Freq: NEEDED Status: Active Protocol: Document 01/17/24 11:25 MB (Rec: 01/17/24 12:01 MB [id number]) Physical Therapy Treatment Exercises Exercises Ankle Pumps Education Education Provided Safety Other Treatments Other Treatment Performed Fall risk, O2, foot skin changes and reports also sacral skin break down M7 PT-IP Assessment and Plan Start: 01/17/24 10:16 Freq: NEEDED Status: Active Protocol: Document 01/17/24 11:25 MB (Rec: 01/17/24 12:01 MB [id number]) PT Summary Assessment and Plan Potential Rehabilitation Potential Fair Status of Condition at Evaluation Unstable Summary Impairments Pain,ROM,Strength,Balance, Coordination,Cognition,Bed Mobility,Transfers,Gait, Activity Tolerance Progress Towards Goals Slow Progress due to Activity Tolerance Assessment Summary Pt is an 88 y/o female who presents with forward head posture and little ability to participate with range and strength testing today. She does make an effort to initiate bed mobility to the right with HOB increased and assistance with hand placement on rail. She requires max A of 1 for supine to sit with HOB increased and 2 person dependent assistance to lie back down. Recommend ongoing acute and post-acute PT and 24 hour assistance. Goals Bed Mobility Goal Standby Assistance Transfer Goal Standby Assistance,Front Wheeled Walker,Four Wheeled Walker Gait Goal Standby Assistance,Front Wheel Walker,Four Wheel Walker Gait Distance 50 Other Goals Do not feel that pt will progress to stair training in acute setting. Days to Meet Goals 5 Frequency of Treatment Frequency Of Treatment Once a Day Treatment Plan Physical Therapy Treatment Plan Bed Mobility Training,Transfer Training,Gait Training, Therapeutic Exercise,Balance Retraining,Discharge Planning, Hot or Cold Pack,Neuromuscular Re-ed,Coordination Retraining Precautions Other Precautions Fall risk Weight Bearing Status Weight Bearing Status Weight Bear as Tolerated Recommendations To Nursing Amount of Assist Needed Mechanical Lift Discharge Recommendations PT Discharge Recommendations SNF Rehab Transportation Needs at Discharge Wheelchair/Cabulance,Stretcher /Ambulance
--- NOTE | 2024-01-17 12:04 | PC.NURSE ---
Patient refusing most turns and repositioning. Becomes agitated, yelling out, demanding care team stop. Explained importance of incontinence care and preventing pressure wounds from worsening, patient's nuero status preventing understanding. Calm and compliant with medication administration and vital signs. remains at bedside.
[2024-01-17] MEDS: cefTRIAXone 1,000 MG in SODIUM CHLORIDE 0.9% 100 ML 200 MG IV (14:23)
[2024-01-17] MEDS: methocarbamoL 500 MG TABLET PO (20:37)
[2024-01-17] MEDS: QUETIAPINE 25 MG TABLET PO (20:38)
[2024-01-18] VITALS (11 sets, daily range): BP systolic 89–112; BP diastolic 55–70; PULSE 97–122; RESP 17–35; TEMP 36.2–36.6; O2SAT 91–97
--- NOTE | 2024-01-18 07:52 | P.PN_ITS ---
Subjective Subjective Interval history: She has no complaints. She denies pain. She continues to eat very little. Exam Vital Signs (past 8 hours): - 01/18/24 00:00 01/18/24 00:00 01/18/24 02:00 Temperature 97.7 F Pulse Rate 118 H 121 H Respiratory Rate 28 H 29 H Blood Pressure 103/70 99/56 L Pulse Oximetry 92 91 Oxygen Flow Rate 0 0 01/18/24 02:00 01/18/24 04:00 01/18/24 04:00 Temperature 97.2 F L Pulse Rate 119 H 115 H Respiratory Rate 31 H 29 H Blood Pressure 94/58 L Pulse Oximetry 91 93 Oxygen Flow Rate 0 01/18/24 06:00 01/18/24 06:00 Temperature Pulse Rate 122 H Respiratory Rate 29 H Blood Pressure 112/68 Pulse Oximetry 94 Oxygen Flow Rate 0 Fraction of Inspired Oxygen 24 SaO2/FiO2 Ratio 408 Oxygen Delivery Method Room Air Oxygen Flow Rate 0 Narrative Exam Narrative: NAD, alert and oriented. Fluent speech. Flat affect and speaks very little. Lungs are clear, normal rate and effort. Heart is regular, no murmur gallop or rub. Abdomen is soft, non distended. Extremities are free of edema. Objective Labs 01/16/24 04:07 01/16/24 04:07 [facility] Medical History Do not resuscitate Alzheimer's dementia Venous ulcer of right leg Mild cognitive impairment Abrasion of left heel Aortic stenosis Venous (peripheral) insufficiency History of colon cancer Obstructive sleep apnea History of left breast cancer Polyneuropathy, unspecified Acquired hypothyroidism Impaired fasting glucose Mixed hyperlipidemia Essential hypertension History of subdural hematoma Chronic anticoagulation Chronic atrial fibrillation Eczema (~2015) Tinnitus (~1999) Cataracts, bilateral (~1999) Arthritis Surgical History Anesthesia History of colon surgery History of thyroid surgery History of hysterectomy (~1979) Family History Mother Cancer Father Heart disease Sister Cancer Social History marital status: household members: spouse Smoking Status: Former smoker alcohol intake: current substance use type: does not use Assessment & Plan Assessment & Plan narrative: 1. Chronic A-fib with RVR, present on admission and active. - add digoxin 0.250 IV today. We will convert to oral if she goes to assisted facility. 2. Sepsis secondary to sacral decubitus ulcer with acute metabolic encephalopathy and acute respiratory failure with hypoxia, present on admission and improving. - started ceftriaxone and vancomycin for ulcer, consulted surgery discussed with them and no debridement is recommended currently though wound care provider states will need at some point. - hold home valsartan.. - wound care consultation appreciated. 3. Hypothyroidism, present on admission and active. 4. Cognitive impairment, present on admission and active. 5. Recent fall with gait instability, present on admission and active. . physical and Occupational Therapy 6. Dyspnea with concerns for pulmonary edema. Present on admission and improved. In general, she was very poor oral intake. She also is not moving around very much. Plan: -continue oral medications as tolerated. -continue antibiotics. -physical therapy assessment for assisted facility request. -Add Digoxin for rate control, 250 mcg IV today. -she will transfer to assisted facility today if they are able to take her and we will convert antibiotics to oral. She is not doing that well or progressing. He understands this. His goal is primarily that then over life is comfortable. We will continue to try treatment with antibiotics, wound care, and rate control but her prognosis remains guarded. Patient is a DNR per POLST form. Surrogate is patient's spouse Time-Based Coding :: [TOTAL MINUTES] spent with patient and on the chart (including review of chart, obtaining history, exam, reviewing outside data, placing orders, documenting exam and treatment plan, and counseling patient) on [DATE].
[2024-01-18] MEDS: DIGOXIN 500 MCG/2 ML AMPUL 250 MCG IV (08:32)
[2024-01-18] MEDS: AMIODARONE 200 MG TABLET PO (08:32)
[2024-01-18] MEDS: SODIUM CHLORIDE 0.9% FLUSH 10 ML IV (08:33)
[2024-01-18] MEDS: SENNOSIDES 8.6 MG TABLET PO (08:33)
[2024-01-18] MEDS: ATORVASTATIN 20 MG TABLET PO (08:33)
[2024-01-18] MEDS: METOPROLOL ER 50 MG TABLET 100 MG PO (08:33)
[2024-01-18] MEDS: LEVOTHYROXINE 125 MCG TABLET PO (08:33)
[2024-01-18] MEDS: APIXABAN 5 MG TABLET PO (08:33)
--- NOTE | 2024-01-18 10:33 | P.DS_ITS ---
History of Present Illness History of Present Illness Chief complaint: Increased work of breathing Narrative: From H&P: 8 years old female with a past medical history of hypertension, aortic stenosis, limits dementia, chronic anticoagulation and multiple other medical issues including recent hospitalization for weakness possibly due to urinary tract infection now was brought back to the emergency room for shortness of breath and palpitations as noticed by family. Patient is confused and unable to give a good history. She denies any chest pain or shortness of breath. Denies any palpitations. Nursing at the facility noted she was not A-fib with rapid ventricular rate. In the ED was noted to be tachycardic with a pulse in the 160s. Initially received IV Cardizem with little change in the heart rate. Cardiology were consulted and apparently patient has had cardioversions in the past multiple times sotalol failed not a candidate for cardioversion. Reviewed with cardiology Dr. Luu who recommended amiodarone drip. Patient was initiated on amiodarone drip and admitted for further evaluation Overnight patient was started on amiodarone infusion. She has a large decubitus ulcer on her sacrum, have consutled surgery for possible debridement. Started on antibiotics for probable infection with ceftriaxone and azithromycin. She has minimal complaints today, no chest pain or shortness of breath. HR improved with resumption of home metoprolol but BP is soft but MAP around 65. Discharge Providers Provider Date of admission: 01/12/24 23:32 Discharge Date: 01/18/24 Primary care physician: Miguel Angel Phelps MD Consults: 01/13/24 10:27 Consult to General Surgery Routine Comment: Consulting Provider: Bernard Osman Reason for consultation: sacral decub poss. debridement 01/14/24 11:49 Consult to Wound Care Routine Comment: Consulting Provider: [facility] 01/17/24 10:08 Consult to Physical Therapy Evaluate & Treat Comment: Physician Instructions: Evaluate and Treat Discharge provider: Johnnie Nuñez MD Summary Hospital Course Discharge Diagnosis: 1. Chronic A-fib with RVR, present on admission and active. - add digoxin 0.250 IV today. We will convert to oral if she goes to nursing home facility. 2. Sepsis secondary to sacral decubitus ulcer with acute metabolic encephalopathy and acute respiratory failure with hypoxia, present on admission and improving. - started ceftriaxone and vancomycin for ulcer, consulted surgery discussed with them and no debridement is recommended currently though wound care provider states will need at some point. - hold home valsartan.. - wound care consultation appreciated. 3. Hypothyroidism, present on admission and active. 4. Cognitive impairment, present on admission and active. 5. Recent fall with gait instability, present on admission and active. . physical and Occupational Therapy 6. Dyspnea with concerns for pulmonary edema. Present on admission and improved. Hospital Course: This patient was admitted with dyspnea and found to have her chronic atrial fibrillation with rapid response. She also has aortic stenosis which is moderate to possibly severe. She was initially treated with IV antibiotics for possible decubitus infection and started on an amiodarone infusion for her rapid Heart rate. Surgery did see her, they felt that there was no role for surgical intervention for her full-thickness sacral decubitus ulcer. They recommended daily or b.i.d. dressing using dry gauze to pack the cavity of the wound. Wound Care was also consulted noted extensive overlying necrotic skin that will at some point need debridement. In the meantime they recommended painting with Betadine twice a day and using ABD pad to control drainage. Also recommended was nutritional optimization and frequent turning. Follow up at the Wound Care will happen after discharge to nursing home facility. During the hospitalization the patient had poor response to multiple medications for rate control and ultimately she ended up on amiodarone b.i.d. to 100 mg. As well as metoprolol 100 mg b.i.d.. She showed minimal response to diltiazem and digoxin was added near the end of her hospitalization. For her part, the patient remained comfortable, does have cognitive impairment, had a very flat affect and was very reluctant to have positional changes most of the time. In addition her oral intake is very poor. On the day of discharge I did speak with her , I noted that the patient was very low chance for a significant improvement given her general medical status, aortic stenosis, and poor p.o. intake as well as the extensive nature of her ulcer. I recommended that they consider hospice over the next several weeks as a way to preserve her comfort and dignity. She will be placed on an additional 7 days of oral antibiotics in the time of discharge. No wound cultures were obtained. Status at Discharge Cognitive/behavioral status at discharge: at baseline, confused Functional status at discharge: bed bound Overall status at discharge: patient is progressing back to baseline Time Spent with Patient Time spent: Greater than 30 minutes Exam Vital Signs (past 8 hours): - 01/18/24 04:00 01/18/24 04:00 01/18/24 06:00 Temperature 97.2 F L Pulse Rate 115 H 122 H Respiratory Rate 29 H 29 H Blood Pressure 94/58 L Pulse Oximetry 93 94 Oxygen Delivery Method Oxygen Flow Rate 0 0 01/18/24 06:00 01/18/24 08:00 01/18/24 08:00 Temperature 97.9 F Pulse Rate 121 H Respiratory Rate 17 27 H Blood Pressure 112/68 99/63 Pulse Oximetry 93 Oxygen Delivery Method Oxygen Flow Rate 01/18/24 08:32 01/18/24 08:33 01/18/24 09:00 Temperature Pulse Rate 110 H 110 H Respiratory Rate Blood Pressure 99/63 99/63 Pulse Oximetry Oxygen Delivery Method Room Air Oxygen Flow Rate 01/18/24 09:03 Temperature Pulse Rate 105 H Respiratory Rate Blood Pressure Pulse Oximetry Oxygen Delivery Method Oxygen Flow Rate Fraction of Inspired Oxygen 24 SaO2/FiO2 Ratio 408 Oxygen Delivery Method Room Air Oxygen Flow Rate 0 Narrative Exam Narrative: NAD, alert and oriented. Fluent speech. She was generally not very engaged in the conversation. Flat affect. Lungs are clear, normal rate and effort. Heart is regular, no murmur gallop or rub. She has a systolic murmur. Abdomen is soft, non distended. Extremities are free of edema. Objective Imaging Echo: Radiologist's impression: The patient was in atrial fibrillation with heart rates between 93-122 bpm during the exam. The left ventricle is grossly normal size. The left ventricle is hyperdynamic. The ejection fraction is estimated to be 70-75%. The right ventricle is mildly dilated. The right ventricular systolic function is normal. There is severe biatrial enlargement. Both atria have remained unchanged in size since the prior echo exam. There is severe mitral annular calcification. Restriction of the mitral leaflet mobility. Suspect at least mild to moderate mitral stenosis. Not severe. There is moderate mitral regurgitation. Previously mild MR. The aortic valve is not well visualized. The aortic valve is heavily calcified. There is severely reduced leaflet mobility. The peak aortic velocity is 2.9 m/sec. Previous aortic velocity 2.65 m/s. The aortic valve mean gradient is 20 mmHg. The calculated aortic valve area is 0.4 cm2. sev ratio: 0.16 Stroke-volume index about 12.22 mL/mA?. Consider paradoxically low gradient severe aortic stenosis due to low stroke- volume in the setting of A-fib There is severe tricuspid regurgitation. Previously mild TR. The right ventricular systolic pressure is estimated to be at least 44 mmHg based on an estimated right atrial pressure of 15 mm Hg. Suspect underestimation of pulmonary artery systolic pressure. Compared to the prior echo exam, there has been an increase in TR severity. Previously 47 mmHg. Chest x-ray: Radiologist's impression: Small to moderate bilateral pleural effusions, left greater than right. Subjacent atelectasis. Labs 01/16/24 04:07 01/16/24 04:07 [facility] Medical History Do not resuscitate Alzheimer's dementia Venous ulcer of right leg Mild cognitive impairment Abrasion of left heel Aortic stenosis Venous (peripheral) insufficiency History of colon cancer Obstructive sleep apnea History of left breast cancer Polyneuropathy, unspecified Acquired hypothyroidism Impaired fasting glucose Mixed hyperlipidemia Essential hypertension History of subdural hematoma Chronic anticoagulation Chronic atrial fibrillation Eczema (~2014) Tinnitus (~1999) Cataracts, bilateral (~1999) Arthritis Surgical History Anesthesia History of colon surgery History of thyroid surgery History of hysterectomy (~1979) Family History Mother Cancer Father Heart disease Sister Cancer Social History marital status: household members: spouse Smoking Status: Former smoker alcohol intake: current substance use type: does not use Discharge Assessment & Plan Assessment and Plan Assessment: 1. Chronic A-fib with RVR, present on admission and improved. 2. Sepsis secondary to sacral decubitus ulcer, present on admission and improved. 3. Sacral decubitus ulcer, present on admission and improved. 4. Acute metabolic encephalopathy, present on admission and improved. 5. Moderate to severe aortic stenosis, severe tricuspid regurgitation, moderate mitral regurgitation, and mitral stenosis. 6. Hypothyroidism, present on admission and active. 7. Cognitive impairment, present on admission and active. 8. Recent fall with gait instability, present on admission and active. . physical and Occupational Therapy 9. Dyspnea with concerns for pulmonary edema. Present on admission and improved. Plan of Treatment: Stable for discharge to nursing home facility for ongoing medical treatment, wound care, and other needs. Discharge Plan Discharge Plan Patient Disposition: SNF Transfer to: [facility] Under care of provider: Dr Saravia Provider Discharge Comment: Stable for discharge to nursing home facility for ongoing care. Discharge orders & Medications Prescriptions: New Eliquis 5 mg Tablet 5 mg PO BID Qty: 60 0RF quetiapine 25 mg Tablet 25 mg PO BEDTIME Qty: 30 0RF methocarbamol 500 mg Tablet 500 mg PO TID PRN (Reason: Muscle Spasm) Qty: 30 0RF amiodarone 200 mg Tablet 200 mg PO BIDWM Qty: 60 0RF metoprolol succinate 50 mg Tablet Extended Release 24 Hr 100 mg PO BID Qty: 60 0RF digoxin 125 mcg (0.125 mg) tablet 125 mcg PO DAILY Qty: 30 0RF cefdinir 300 mg capsule 300 mg PO BID Qty: 14 0RF Continued levothyroxine 125 mcg tablet 125 mcg PO QAM Qty: 90 3RF Eliquis 5 mg tablet 5 mg PO BID Qty: 180 3RF atorvastatin [Lipitor] 20 mg tablet 20 mg PO DAILY Qty: 90 3RF sennosides [Senokot] 8.6 mg Tablet 8.6 mg DAILY folic acid 400 mcg Tablet 0.4 mg PO DAILY Discontinued metoprolol tartrate 50 mg tablet 50 mg PO BID Qty: 180 3RF diltiazem HCl 240 mg capsule,extended release 24hr 240 mg PO QAM Qty: 90 3RF valsartan 160 mg tablet 160 mg PO DAILY Qty: 90 3RF acetaminophen 325 mg Tablet 650 mg PO TID calcium 600 mg Capsule 600 mg PO BID Medication counseling provided by Pharmacist: No Follow up/Referrals: Miguel Angel Phelps MD [Primary Care Provider] - Discharge Health Status Multidrug resistant organism: No MDRO Diet/Activity/Treatments Diet: Diet as Tolerated Liquid consistency: Normal/Thin Activity: As tolerated. Catheter: 2-way Flores Catheter comment: 14 [place] Skin/Wound/Dressing Care Dressing: painting with Betadine twice a day and using ABD pad to help control drainage and keep skin dry. Other wound treatment: Also recommend pressure offloading with frequent turning, protein supplementation, follow up at wound center after discharge for further treatment. [facility] Reason for rehabilitation: Recovery r/t decondition Rehab type: Physical therapy and Occupational therapy Visit Report/Discharge Packet Stand Alone Forms: Patient Portal/API Discharge Data Primary Care Provider: Miguel Angel Phelps V
--- NOTE | 2024-01-18 11:09 | CM.DPC ---
DCP Discharge SNF Per MD, had discussion with spouse regarding Goals of Care and unlikely improvement and spouse acknowledges understanding but having difficulty in accepting this but agreeable with d/c to SNF today to attempt rehab while they are looking into LTC options and Dtr to [place] from [place] to visit with pt and spouse. Pt medically stable for discharge to SNF. DEDRA called [facility] admissions and confirmed they can still accept pt today with transport for 1300 with monique into w/c and confirmed since pt is a return then no PASRR needed. KIANA Eli kindly faxed signed med list, scripts, MD orders, d/c summary to [facility] to review. DEDRA updated RN who confirms spouse was bedside and aware of discharge to [facility] today and spouse left for medical appointment and will be bedside after. DEDRA provided RN report number. Updated HUB CUTTER and pharmacy account director. Plan: Patient to discharge to [facility] SNF rehab today via facility van at 1300 before likely oil heaterman care placement. JUAN JOSE Pereyra
--- NOTE | 2024-01-18 13:23 | PC.NURSE ---
Pt discharge to [facility] rehab. Report given at 1300. IV discontinued, telemetry removed. Pt transferred via monique lift from bed to wheelchair. Facility phone representative wheeled pt to private facility vehicle at approximately 1320.
== END 2024-01-18 13:20 | DRG 871 ==
LOC: ED 23:29 → AC 23:32 → ICU 01-13
PROVIDERS: Internal Medicine; Admitting Provider Internal Medicine; Emergency Provider Emergency Medicine; PCP Internal Medicine; Referring Provider Emergency Medicine; Visit Provider Internal Medicine
DX: A41.9 Sepsis, unspecified organism (principal); G93.41 Metabolic encephalopathy; L89.154 Pressure ulcer of sacral region, stage 4; J96.01 Acute respiratory failure with hypoxia; I48.20 Chronic atrial fibrillation, unspecified; J81.1 Chronic pulmonary edema; E03.9 Hypothyroidism, unspecified; R65.20 Severe sepsis without septic shock; F03.B0 Unspecified dementia, moderate, without behavioral disturbance, psychotic disturbance, mood disturbance, and anxiety; R26.89 Other abnormalities of gait and mobility; I35.0 Nonrheumatic aortic (valve) stenosis; I07.1 Rheumatic tricuspid insufficiency; I05.0 Rheumatic mitral stenosis; E78.2 Mixed hyperlipidemia; Z87.891 Personal history of nicotine dependence; Z79.01 Long term (current) use of anticoagulants; Z66 Do not resuscitate
CPT/HCPCS: 36415; 71045; 80053; 80202; 81001; 83605; 83735; 83880; 84145; 84484; 85025; 85610; 87040; 87797; 93005; 93306; 96365; 96367; 96375; 96376; 97162; 99285; 99291; J0282; J0696; J1160; J1940

== ENCOUNTER 2024-01-22 07:43 | Emergency (ER) | payer MEDICARE, SELFPAY ==
[2024-01-12 23:48] VITALS: BMI 34.1
[2024-01-22] VITALS (9 sets, daily range): BP systolic 77–93; BP diastolic 50–60; PULSE 86–99; RESP 27–31; TEMP 36.4; O2SAT 76–88
--- NOTE | 2024-01-22 07:53 | ED.GENADULT ---
HPI - General Adult General Chief complaint: Unresponsive Stated complaint: Hypotension, Non responsive Time Seen by Provider: 01/22/24 07:45 Source: EMS Mode of arrival: EMS Limitations: altered mental status History of Present Illness HPI narrative: Patient is an 88-year-old female. Has a POLST form from her living facility that says DNR with limited interventions. Apparently the patient was transferred to the emergency department under the request of the patient's . Per report the patient has had a declining mental status and blood pressure for the past several days. Patient is unable to provide any HPI. She was unresponsive. Systolic blood pressure in the 70s. According to the notes from the living facility she has a history of atypical atrial flutter, chronic atrial fibrillation, polyneuropathy, aortic stenosis, hypothyroidism, arthritis, hypertension. She was on Eliquis. There were no reports of trauma. Related Data Home Medications Medication Instructions Recorded Confirmed sennosides 8.6 mg tablet (Senokot) 8.6 mg DAILY 10/05/18 01/13/24 folic acid 400 mcg tablet 0.4 mg PO DAILY 01/13/24 01/13/24 Previous Rx's Medication Instructions Recorded levothyroxine 125 mcg tablet 125 mcg PO QAM #90 tabs 03/23/23 apixaban 5 mg tablet (Eliquis) 5 mg PO BID #180 tabs 07/10/23 atorvastatin 20 mg tablet (Lipitor) 20 mg PO DAILY #90 tabs 12/30/23 amiodarone 200 mg tablet 200 mg PO BIDWM #60 tabs 01/18/24 apixaban 5 mg tablet (Eliquis) 5 mg PO BID #60 tabs 01/18/24 cefdinir 300 mg capsule 300 mg PO BID #14 caps 01/18/24 digoxin 125 mcg (0.125 mg) tablet 125 mcg PO DAILY #30 tabs 01/18/24 methocarbamol 500 mg tablet 500 mg PO TID PRN Muscle Spasm #30 01/18/24 tabs metoprolol succinate 50 mg 100 mg (2 x 50 mg) PO BID #60 tabs 01/18/24 tablet,extended release 24 hr quetiapine 25 mg tablet 25 mg PO BEDTIME #30 tabs 01/18/24 Allergies Allergy/AdvReac Type Severity Reaction Status Date / Time allopurinol Allergy Intermediate Fatigued Verified 01/06/24 17:38 Penicillins Allergy Mild RASH Verified 01/06/24 17:38 adhesive Allergy Unknown Verified 01/06/24 17:38 donepezil AdvReac Intermediate Diarrhea Verified 01/06/24 17:38 codeine AdvReac Unknown Verified 01/06/24 17:38 Review of Systems Review of Systems ROS Unobtainable: Unobtainable due to mental status/LOC Patient History Medical History Do not resuscitate Alzheimer's dementia Venous ulcer of right leg Mild cognitive impairment Abrasion of left heel Aortic stenosis Venous (peripheral) insufficiency History of colon cancer Obstructive sleep apnea History of left breast cancer Polyneuropathy, unspecified Acquired hypothyroidism Impaired fasting glucose Mixed hyperlipidemia Essential hypertension History of subdural hematoma Chronic anticoagulation Chronic atrial fibrillation Eczema (~2014) Tinnitus (~1999) Cataracts, bilateral (~1999) Arthritis Surgical History Anesthesia History of colon surgery History of thyroid surgery History of hysterectomy (~1979) Family History Mother Cancer Father Heart disease Sister Cancer Social History marital status: household members: spouse Smoking Status: Former smoker alcohol intake: current substance use type: does not use Smoking Status: Former smoker alcohol intake frequency: a few times a week Alcohol type: other Substance Use Type: does not use Exam Initial Vital Signs Initial Vital Signs: Vital Signs Pulse Rate 92 H 01/22/24 07:50 Respiratory Rate 29 H 01/22/24 07:50 Pulse Oximetry 88 L 01/22/24 07:50 Const General: comfortable HENMT Head: normal to inspection and normocephalic Eyes Pupils: pupil size bilaterally 5 Resp Effort & Inspection: no cough, not labored, no respiratory distress and tachypneic Cardio Rate: regular rate Rhythm: abnormal rhythm GI Inspection: normal to inspection and non-distended Other: Flores catheter in place Skin General: no rashes or lesions noted Neuro Other: Patient is unresponsive. GCS of 3 Extrem Other: No gross deformities Scores GCS [place] coma scale eye opening: None [place] coma scale verbal response: None [place] coma scale motor response: None [place] coma scale total score: 3 Course Orders Ordered: ED Orders 01/22/24 09:41 Consult to HELMET BINDER - Financial Sales Representative Stat 01/22/24 11:41 CT head/brain wo con Stat Vital Signs Vital signs: Vital Signs - 8 hr 01/22/24 07:50 01/22/24 07:56 01/22/24 08:00 Temperature 97.5 F L Pulse Rate 92 H 91 H 89 Respiratory Rate 29 H 31 H 27 H Blood Pressure 77/52 L Pulse Oximetry 88 L 88 L 79 L Oxygen Delivery Method Room Air Oxygen Flow Rate 01/22/24 08:01 01/22/24 08:01 01/22/24 08:15 Temperature Pulse Rate 88 Respiratory Rate 29 H Blood Pressure 87/60 L 88/56 L Pulse Oximetry 76 L Oxygen Delivery Method Oxygen Flow Rate 01/22/24 08:15 01/22/24 12:33 01/22/24 13:29 Temperature Pulse Rate 90 93 H 86 Respiratory Rate 30 H Blood Pressure 93/60 90/59 L Pulse Oximetry 84 L 84 L 85 L Oxygen Delivery Method Nasal Cannula Nasal Cannula Nasal Cannula Oxygen Flow Rate 2 2 2 01/22/24 14:43 01/22/24 14:47 Temperature 97.6 F Pulse Rate 99 H Respiratory Rate Blood Pressure 91/50 L Pulse Oximetry 87 L Oxygen Delivery Method Nasal Cannula Oxygen Flow Rate 2 Medical Decision Making Lab Data Labs: Point of Care Testing Glucose POC 88 Point of care testing: Point of Care Testing Glucose POC [address] scan - head: Radiologist's Impression: PROCEDURE: CT HEAD/BRAIN WO CON INDICATIONS: AMS TECHNIQUE: Noncontrast 4.5 mm thick angled axial sections acquired from the foramen magnum to the vertex, with coronal and sagittal reformats. For radiation dose reduction, the following was used: automated exposure control, adjustment of mA and/or kV according to patient size. COMPARISON: [facility], CT, CT HEAD/BRAIN WO CON, 01/06/2024, 14:12. FINDINGS: Image quality: Diagnostic. CSF spaces: Basal cisterns are patent. No extra-axial fluid collections. The ventricles are symmetric in size and shape. Brain: No intracranial bleeds or masses. There is cerebral volume loss for age, with resultant ventricular and sulcal prominence. There are periventricular and deep white matter chronic small vessel ischemic changes. Possible old focal deep white matter infarct in the right parietal region. Old bilateral basal ganglia lacunar infarcts. There is intracranial internal carotid artery atherosclerosis. Skull and face: Calvarium and visualized facial bones appear intact, without suspicious lesions. Sinuses: Visualized sinuses and mastoids are clear. IMPRESSION: No acute intracranial pathology. MDM Narrative Medical decision making narrative: After the patient's arrived we did have some conflicting stories as to how long the patient has been present like this. He was initially told by EMS from the nursing staff that the patient has been having a declining mental status over the past couple days although the patient's states that he was with her yesterday and she was participating in physical therapy and was actually seemed to do quite well. She was on anticoagulation. She does have a history of dementia. He did confirm that the patient is a DNR with limited interventions. Here in the ER she was in sinus rhythm. Was hypotensive and hypoxic. She was placed on nasal cannula for comfort. After the arrived we had a very extensive discussion as to what the goals of care were. He initially wanted to wait until his daughter arrived to discuss anything further. After his daughter arrived we had further discussions about goals of care. They understand that I do not have a definitive diagnosis as to why she is in this situation. After discussion with social work we opted to obtain a head CT for further evaluation. The head CT was unremarkable. We then had further discussions about potential further workup. After these discussions we opted to make the patient comfort care and not pursue any further workup. Social work has been involved. We were able to contact the facility where the patient came from and they stated that they were able to take her back. They will initiate a hospice consultation. The plan will be is to focus on comfort and not pursue further treatment. Family was in agreement with this discussion. Discharge Plan Departure Patient Disposition: Home Clinical Impression: Altered mental status, Hypoxia Activity Restrictions/Additional Instructions: After a long discussion with Jenna stillly decision was made to focus on comfort. I do recommend hospice become involved in her care. I recommend the Flores catheter be kept in place. Also recommend that all of her medications be held. I recommend that her primary care doctor be involved and contacted as well. She can return to the emergency department at any point if needed. Prescriptions: No Action levothyroxine 125 mcg tablet 125 mcg PO QAM Qty: 90 3RF Eliquis 5 mg tablet 5 mg PO BID Qty: 180 3RF atorvastatin [Lipitor] 20 mg tablet 20 mg PO DAILY Qty: 90 3RF sennosides [Senokot] 8.6 mg Tablet 8.6 mg DAILY folic acid 400 mcg Tablet 0.4 mg PO DAILY Eliquis 5 mg Tablet 5 mg PO BID Qty: 60 0RF quetiapine 25 mg Tablet 25 mg PO BEDTIME Qty: 30 0RF methocarbamol 500 mg Tablet 500 mg PO TID PRN (Reason: Muscle Spasm) Qty: 30 0RF amiodarone 200 mg Tablet 200 mg PO BIDWM Qty: 60 0RF metoprolol succinate 50 mg Tablet Extended Release 24 Hr 100 mg PO BID Qty: 60 0RF digoxin 125 mcg (0.125 mg) tablet 125 mcg PO DAILY Qty: 30 0RF cefdinir 300 mg capsule 300 mg PO BID Qty: 14 0RF Referrals: Miguel Angel Phelps MD [Primary Care Provider] - Stand Alone Forms: Patient Portal/API, Naloxone Standing Order SHARON
--- NOTE | 2024-01-22 09:20 | PC.NURSE ---
Pt arrived unresponsive. POLST states DNR with limited interventions. at bedside talked with Dr pop and will be giving comfort measures only until Radio News Writer and her daughter arrive. Then they will make some decisions on how to proceed with care. Pt given warm blankets and placed on 2LPM nasal cannula for comfort.
--- NOTE | 2024-01-22 11:41 | DI.CT.S_ITS ---
PROCEDURE: CT HEAD/BRAIN WO CON INDICATIONS: AMS TECHNIQUE: Noncontrast 4.5 mm thick angled axial sections acquired from the foramen magnum to the vertex, with coronal and sagittal reformats. For radiation dose reduction, the following was used: automated exposure control, adjustment of mA and/or kV according to patient size. COMPARISON: [facility], CT, CT HEAD/BRAIN WO CON, 01/06/2024, 14:12. FINDINGS: Image quality: Diagnostic. CSF spaces: Basal cisterns are patent. No extra-axial fluid collections. The ventricles are symmetric in size and shape. Brain: No intracranial bleeds or masses. There is cerebral volume loss for age, with resultant ventricular and sulcal prominence. There are periventricular and deep white matter chronic small vessel ischemic changes. Possible old focal deep white matter infarct in the right parietal region. Old bilateral basal ganglia lacunar infarcts. There is intracranial internal carotid artery atherosclerosis. Skull and face: Calvarium and visualized facial bones appear intact, without suspicious lesions. Sinuses: Visualized sinuses and mastoids are clear. IMPRESSION: No acute intracranial pathology. Dictated by: Lb Lindsay M.D. on 01/22/2024 at 12:27 Approved by: Lb Lindsay M.D. on 01/22/2024 at 12:29
--- NOTE | 2024-01-22 13:41 | CM.SWNOTE ---
ED POT ANNEALER Note: Patient is a 88yo female, resident of [place], presented via ambulance due to low blood pressure and altered mental status. Patient was admitted at [facility] prior to being brought in to the ED. POT ANNEALER was consulted due to patient's new DNR wishes and POLST forms for comfort measures, possible Hospice referral. Reviewed EMR and discussed pt with ED Provider and [facility] Admissions. Patient's primary care provider is Dr. Phelps and insurance is [facility] Medicare. ED POT ANNEALER entered room, introduced self and role. Present in the room was patient, , Guillermo (ph# [phone]) and daughter, Kortney (ph#[phone]). ED POT ANNEALER had extensive conversation with family as pt was unresponsive in bed. It was reported that pt would like to move forward with pt's wishes of comfort measures, would like assistance in navigating where Hospice services will take place. Family grateful that optical mechanic was able to come to the ED to perform Last Rites, per pt request. Family discussed seeking fci memory care at [facility] and [place] in case pt needed fci care following Rehab. Pt's and daughter requesting a CT scan to rule out stroke as pt was communicative and alert and oriented yesterday, participating in PT. Per ED Provider, CT results did not indicate a stroke and no other admittable dx. ED POT ANNEALER spoke with [facility] and it was reported that pt could return within 24 hours due to insurance authorization and Hospice referral will be initiated by [facility] staff. ED POT ANNEALER re-entered room and discussed the above with pt's family. Patient family agreeable to plan and grateful to be able to return to SNF. Family agreebale to BLS transport back to [facility]. ED POT ANNEALER discussed plan with ED staff, [place] ambulance to be dispatched for pt to return to [facility]. RN Report #[phone]. Plan: Pt to discharge back to [facility] via BLS transport at 1445. Pt to follow up comfort care with PCP and Hospice referral from [facility] staff. TIFFANIE Wood
--- NOTE | 2024-01-22 13:57 | PC.NURSE ---
pt is unresponsive, pt has been moved to comfort care per discussion with physician and family. This RN performed no further assessment due to somnolent state
== END 2024-01-22 14:40 | disposition home or self-care (01) ==
PROVIDERS: Emergency Provider Emergency Medicine; PCP Internal Medicine
DX: R41.82 Altered mental status, unspecified (principal); R09.02 Hypoxemia; I95.9 Hypotension, unspecified; Z79.01 Long term (current) use of anticoagulants; Z79.899 Other long term (current) drug therapy
CPT/HCPCS: 70450; 82962; 99284